=== PATIENT | male | born 1935 | race Caucasian/White ===

== ENCOUNTER 2022-12-19 10:30 | Outpatient (RCR) | payer MEDICARE, SELFPAY | END 2023-04-18 23:59 | disposition home or self-care (01) | PROVIDERS: PCP Family Medicine; Visit Provider Physician Assistant Medical | DX: H81.11 Benign paroxysmal vertigo, right ear (principal); R26.81 Unsteadiness on feet; Z51.89 Encounter for other specified aftercare | CPT/HCPCS: 95992; 97162; 97535 ==

== ENCOUNTER 2023-09-11 06:17 | Day surgery (SDC) | payer MEDICARE, SELFPAY ==
[2023-09-11] VITALS (27 sets, daily range): BP systolic 92–146; BP diastolic 57–87; PULSE 39–67; RESP 12–20; TEMP 35.7–36.7; O2SAT 88–99; BMI 32.1
--- OUTSIDE RECORDS SUMMARY | 2023-09-11 06:19 | XMS_ITS | Continuity of Care Document ---
Author Name Unknown Organization [facility] Address [address] [address] [place] [address] Phone Care Team Providers Care Order Planner Name Role Phone Shaheen VÁSQUEZ, Anshu Unavailable Unavailable Allergies, Adverse Reactions, Alerts Substance Reaction Status Criticality monosodium glutamate Swelling Active No Info rmation lisinopril Cough Active No Information chlorthalidone Hypokalemia Active No Informatio n amlodipine Edema Active No Information Medications Medication Instructions Dosage Effective Dates (start - stop) Status Comments Jardiance 25 mg tablet take 1 tablet by oral route every day in the morning 25 MG - Active colestipol 1 gram tablet take 2 tablet by oral route every bedtime swallowing whole with any liquid. Do not crush, chew and/or divide. 2 G - Active acetaminophen 500 mg capsule take 2 - 4 capsule by ORAL route every 6 days as needed 1000 MG - Active atorvastatin 20 mg tablet take 1 tablet by oral route every day 20 MG - Active carvedilol 6.25 mg tablet take 1 tablet by ORAL route 2 times every day with food 6.25 MG - Active clopidogrel 75 mg tablet take 1 Tablet by Oral route every day 1 Tablet - Active losartan 50 mg tablet take 1 tablet by oral route every day 50 MG - Active metformin 500 mg tablet take 1 tablet by oral route every day with morning and evening meals 500 MG - Active Accu-Chek Judie Plus test strips - Active Nitromist 400 mcg/spray translingual aerosol place 1 spray by translingual route onto or under the tongue at the first sign of an attack; no more than3 sprays are recommended within a 15 minute period. 0.4 MG - Active omeprazole 20 mg capsule,delayed release take 1 capsule by ORAL route every day before a meal 20 MG - Active triamcinolone acetonide 0.1 % topical cream apply by topical route every day PRN for Hives Not Available - Active triamterene 37.5 mg-hydrochlorothiazi de 25 mg capsule take 1 capsule by oral route every day 1.00 capsule - Active Vitamin D3 25 mcg (1,000 unit) chewable tablet take 1 by Oral route every day 1 - Active Procedures Procedure Date Offic/outpt E&m Estab Mod-hi 2 22 Offic/outpt E&m Estab Low-mod 1 ERCP w/FB or stent removal Ercp; W/sphincterotomy/papillo 20 Ercp; W/endo Retro Remov Stone 20 Subsqt Hosp-da E&m Stable 15 M 20 ERCP w/stent & sphinc ERCP w/stent & sphinc Subsqt Hosp-da E&m Minr Compl 0 Init Hosp-da E&m Mod Severity 0 Init Hosp-da E&m Mod Severity 0 Ugi Endo; W/bx 1/mx Advance Directives Directive Yes / No Effective Date File Name No Information Encounters Encounter Description Practice Location Reason(s) For Visit Diagnoses Date Provider Providers Copied on Encounter Offic/outpt E&m Estab Mod-hi 2 [facility], [address] [address], [place], [id number], [place] tel:[phone] [facility] GI Symptoms or Concerns (chief complaint) NauseaConstipa tion, unspecified constipation typeDietary counseling and surveillanceEs sential (primary) hypertension 2 Shaheen Brasher. [address], [place], [place], [id number], [place]. tel:[phone] Referring Provider: Referral Self, USE FOR SELF REFERRALS. [facility], [address] [address], [facility] [place], [id number], [place] tel:[phone] [facility] No Information 2 [place]. [address] [place] [id number], [place]. tel:[phone] [facility], [address] [address], [place], [place], [id number], [place] tel:[phone] [facility] No Information 1 Shaheen Brasher. [address] [place] [address], [id number], [place]. tel:[phone] Referring Provider: Referral Self, USE FOR SELF REFERRALS. Offic/outpt E&m Estab Low-mod [facility], [address] [address], [place], [place], [id number], [place] tel:[phone] [facility] GI Symptoms or Concerns (chief complaint) Diarrhea, unspecified type 1 Shaheen Brasher. [address] [place] [address], [id number], [place]. tel:[phone] Referring Provider: Gerald Gonzalez, [address] [place] [address], [place], [address]. tel:[phone] [facility], [address] [address], [place], [place], [id number], [place] tel:[phone] [facility] No Information 1 Alexa Wilson. [address] [place] [address], [id number], [place]. tel:[phone] [facility], [address] [address], [place], [place], [id number], [place] tel:[phone] [facility] No Information 0 Irasema Alcocer. [address] [place] [address], [id number], [place]. tel:[phone] Referring Provider: Gerald Gonzalez, [address], [place], [address]. tel:[phone] [facility], [address] [address], [place], [id number], [place] tel:[phone] [facility] Calculus of bile duct without cholecystitis with obstruction 0 Timmy Arce. [address], [id number], [place]. tel:[phone] Subsqt Hosp-da E&m Stable 15 M [facility], [address] [address], [place], [id number], [place] tel:[phone] [facility] No Information 0 Andrea REA Lauren. [address] [place] [address], [id number], [place]. tel:[phone] Referring Provider: Gerald Gonzalez, [address], [place], [address]. tel:[phone] [facility], [address] [address], [place], [id number], [place] tel:[phone] [facility] No Information 0 Timmy Arce. [address] [place] [address], [id number], [place]. tel:[phone] Referring Provider: Gerald Gonzalez, [address], [place], [address]. tel:[phone] [facility], [address] [address], [place], [id number], [place] tel:[phone] [facility] No Information 0 Timmy Arce. [address] [place] [address], [id number], [place]. tel:[phone] Subsqt Hosp-da E&m Minr Compl [facility], [address] [address], [place], [id number], tel:[phone] [facility] No Information 0 Cedrick Parrish. [address] [place] [address], [id number], . tel:[phone] Referring Provider: Gerald Gonzalez, [address], [place], [address]. tel:[phone] In Hosp-da E&m Mod Severity [facility], [address] [address], [place], [place], [id number], tel:[phone] [facility] No Information 0 Irasema Alcocer. [address] [place] [address], [id number], [place]. tel:[phone] Referring Provider: Gerald Gonzalez, [address], [place], [address]. tel:[phone] In Hosp-da E&m Mod Severity [facility], [address] [address], [place], [place], [id number], tel:[phone] [facility] No Information 0 Milind Nielson. [address] [place] [address], [id number], . tel:[phone] Referring Provider: Gerald Gonzalez, [address], [place], [address]. tel:[phone] Family History Family Member Type Diagnosis Age At Onset Father Problem (finding) congestive heart failur e Problem (finding) Family history of cancer of colon (Cause Of ) Brother Problem (finding) cancer of the esophagus (Cause Of ) Problem (finding) Family history of cancer of colon (Cause Of ) Immunizations Vaccine Date Status Comments tetanus toxoid, reduced diphtheria toxoid, and acellular pertussis vaccine, adsorbed administered Note: [facility] b i-directional interface ; Source: Other Registry SARS-COV-2 (COVID-19) vaccin e, mRNA, spike protein, LNP, preservative free, 30 mcg/0.3mL dose, mohan-sucrose formulation administered Note: MII C bi- directional interface ; Source: Other Registry influenza, seasonal vaccine, quadrivalent, adjuvanted, .5mL dose, preservative free administered Note: [facility] bi-di rectional interface ; Source: Other Registry SARS-COV-2 (COVID-19) vaccin e, mRNA, spike protein, LNP, preservative free, 30 mcg/0.3mL dose administered Note: [facility] bi-direct ional interface ; Source: Other Registry SARS-COV-2 (COVID-19) vaccin e, mRNA, spike protein, LNP, preservative free, 30 mcg/0.3mL dose administered Note: [facility] bi-direct ional interface ; Source: Other Registry SARS-COV-2 (COVID-19) vaccin e, mRNA, spike protein, LNP, preservative free, 30 mcg/0.3mL dose administered Note: [facility] bi-direct ional interface ; Source: Other Registry influenza, seasonal vaccine, quadrivalent, adjuvanted, .5mL dose, preservative free administered Note: [facility] bi-di rectional interface ; Source: Other Registry Seasonal trivalent influenza vaccine, adjuvanted, preservative free administered Note: [facility] bi-direct ional interface ; Source: Other Registry Seasonal trivalent influenza vaccine, adjuvanted, preservative free administered Note: [facility] bi-direct ional interface ; Source: Other Registry zoster vaccine recombinant administered N ote: [facility] bi-directional interface ; Source: Other Registry zoster vaccine recombinant administered N ote: [facility] bi-directional interface ; Source: Other Registry zoster vaccine recombinant administered N ote: [facility] bi-directional interface ; Source: Other Registry Seasonal trivalent influenza vaccine, adjuvanted, preservative free administered Note: [facility] bi-direct ional interface ; Source: Other Registry influenza, high dose seasona l, preservative-free administered Note: [facility] bi-direct ional interface ; Source: Other Registry influenza, high dose seasona l, preservative-free administered Note: [facility] bi-direct ional interface ; Source: Other Registry Prevnar 13 administered Note: [facility] bi-d irectional interface ; Source: Other Registry influenza, high dose seasona l, preservative-free administered Note: [facility] bi-direct ional interface ; Source: Other Registry tetanus toxoid, reduced diphtheria toxoid, and acellular pertussis vaccine, adsorbed administered Note: [facility] b i-directional interface ; Source: Other Registry Influenza, seasonal, injectable administe red Note: [facility] bi- directional interface ; Source: Other Registry Novel [id number], all formulations administered Note: [facility] bi-direct ional interface ; Source: Other Registry Influenza, seasonal, injectable administe red Note: [facility] bi- directional interface ; Source: Other Registry Influenza, seasonal, injectable administe red Note: [facility] bi- directional interface ; Source: Other Registry Influenza, seasonal, injectable administe red Note: [facility] bi- directional interface ; Source: Other Registry Influenza, seasonal, injectable administe red Note: [facility] bi- directional interface ; Source: Other Registry Influenza, seasonal, injectable administe red Note: [facility] bi- directional interface ; Source: Other Registry Pneumovax 23 administered Note: [facility] bi-d irectional interface ; Source: Other Registry tetanus and diphtheria toxoi ds, adsorbed, preservative free, for adult use (2 Lf of tetanus toxoid and 2 Lf of diphtheria toxoid) administered Note: [facility] bi-direct ional interface ; Source: Other Registry Payers Payer name Insurance type Covered constitution party ID Authorcatherinea tiemilie(s) Medicare [facility] [id number] [facility] [id number] Social History Type Description Quantity Date Captured Comments Alcohol Use Details Caffeine Use Details Unknown Tobacco Use Status Current non-smoker Smoking Status undefined Non-Smoking Tobacco Use Details : No Details Available : No Details Available Sex Male Vital Signs Date / Time: Height Weight BMI Pulse Rate Blood Pressure Temperature Respiratory Rate Body Surface Area Head Circumference Head Circ. Percentile Wt./[place]. Percentile BMI percentile Pulse Ox Inhaled Ox 10:44 AM 70.00 in 95.254 kg (210.00 lbs) 30.1 3 kg/m eter (2) 10:53 AM 70.00 in 97.159 kg (214.20 lbs) 30.7 3 kg/m eter (2) 63 /min 142/87 mm[Hg] Chief Complaint And Reason For Visit From encounter dated '10/19/2021 11:00'. GI Symptoms or Concerns (chief complaint). Description: Mr. Deras is an 85-year-old gentleman with history of myocardial infarction, type 2 diabetes, cholecystectomy (June 2019), common bile duct stone with cholangitis (February 2020), prostatic hypertrophy, and bile acid related diarrhea who isseen in followup to discuss new symptoms of nausea.Mr. Deras had been seen approximately 9 monthsago in the office and was complaining of diarrheal stools. It was ultimately felt that he likely had bile acid related diarrhea following his cholecystectomy and he was started on colestipol. After starting colestipol, he had a significant improvement in his symptoms and his bowel habits returned to baseline/normal.Unfortunately, over the past few months, he started to have troubles with some nausea and subsequently noted constipation (infrequent stools, every 2 to 3 days). With the nausea, initially, he was switched from metformin to Jardiance, but despite this switch his nausea only improved moderately, but not completely. The constipation has persisted.Colonoscopy (approximately 2015) performed by Dr. Nicho Martinez in [place], [place], reportedly a normal exam, although I do not have these records available today.Upper endoscopy (June 2019) normal including gastric and duodenal b iopsies. Reason For Referral Reason For Referral No Information Plan Of Treatment Date Type Action Status Goal Lifestyle education regardin g diet completed Referral Ordered: ERCP Appointment date/timeframe: 03/16/2020 ordered History Of Present Illness Encounter Date Complaint History Of Prese nt Illness Chetan-22-2022 GI Symptoms or Concerns Mr. Jeff hardy is an 85-year-old gentleman with history of myocardial infarction, type 2 diabetes, cholecystectomy (June 2019), common bile duct stone with cholangitis (February 2020), prostatic hypertrophy, and bile acid related diarrhea who is seen in followup to discuss new symptoms of nausea.Mr. Deras had been seen approximately 9 months ago in the office and was complaining of diarrheal stools. It was ultimately felt that he likely had bile acid related diarrhea following his cholecystectomy and he was started on colestipol. After starting colestipol, he had a significant improvement in his symptoms and his bowel habits returned to baseline/normal.Unfortunately, over the past few months, he started to have troubles with some nausea and subsequently noted constipation (infrequent stools, every 2 to 3 days). With the nausea, initially, he was switched from metformin to Jardiance, but despite this switch his nausea only improved moderately, but not completely. The c GI Symptoms or Concerns Mr. Jeff hardy is an 85-year-old gentleman with a history of coronary artery disease/myocardial infarction, type 2 diabetes, cholecystectomy (June 2019), common bile duct stone with cholangitis (February 2020), and prostatic hypertrophy, who was seen in consultation at the request of Dr. Gerald Ng for symptoms of diarrhea.Mr. Deras describes roughly about 1 year of diarrhea symptoms characterized by urgent, poorly formed and frequent stools typically in the morning when he first awakens. The stools can start out somewhat formed, but then progressively become more watery. Typically after the morning, his bowel habits are manageable or absent for the rest of the day. He has had urgency to the point where he has had near incontinence. He denies any blood in the stool. He has had no unexplained weight loss.There is no significant abdominal pain. He has no fevers or chills. Again, no bleeding or unexplained weight loss.He did undergo cholecystectomy in June 2019 Functional Status Date Functional Assessmen t No Information Instructions Date Instruction Additional Infor ravinder 1.) Constipation cou ld easily cause the nausea symptoms.2.) I'd agree with decreasing the Colestipol dose as we discussed.3.) If Colestipol is discontinue entirely and constipation persists then we may consider starting a low dose of Miralax daily. Related to Constipation, unspecified constipation type Lifestyle education regarding di et Related to Dietary counseling and surveillance 1.) Suspected bile a lashell diarrhea. I would recommend a trial of Colestipol 2 tablets every evening at bedtime.2.) You can continue to use Immodium (loperamide) as needed.3.) If symptoms are not improving then consider further testing, likely colonoscopy with biopsies to exclude microscopic colitis Related to Diarrhea, unspecified type Assessments Type Assessment Date assessment Nausea assessment Constipation, unspecified consti pation type assessment Dietary counseling and surveilla nce assessment Essential (primary) hypertension impression Constipation. Mr. Wolf barahona has new onset constipation in the setting of recently starting colestipol. He previously had diarrhea. I would suggest he try decreasing the dose as tolerated as this is likely constipation from colestipol. Additionally, this constipation issue may be responsible for his nausea symptoms.If he continues to have constipation despite discontinuation of colestipol, then we might try a low dose of an osmotic laxative such as MiraLax.If the nausea persist despite improvement in constipation, then we may look at the upper GI tract imaging such as an upper GI x-ray series or possibly gastric emptying scan. Upper endoscopy as mentioned above was performed only 2 years ago and was unrevealing and he has been maintained on omeprazole, which would make recurrent ulcers or reflux esophagitis less likely. Patient Care Teams Name Effective Dates (start - stop) Status Members No Information
--- OUTSIDE RECORDS SUMMARY | 2023-09-11 06:20 | XMS_ITS | Data Portability ---
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 Name Role Phone SHARATH GRIFFIN Primary Care Provider Assessment Encounter Date Assessment Date Assessment LastModified by Organization Details LastModified Time 01/25/2022 01/25/2022 86 yoM with elevated PSA, family history of improvement director, and BPH f/u GL PVP Not available 01/25/2022 10:30:57 07/13/2022 07/13/2022 86 yoM with elevated PSA, family history of improvement director, and BPH f/u GL PVP Of note a total of 15 minutes was spent: preparing to see the patient by reviewing records, images, and laboratory data; obtaining/revie wing separately obtained history; performing physical examination, counseling and educating patient/family/ caregiver; ordering appropriate medications, labs, imaging or procedures; documenting the clinical encounter; and coordination of care. Not available 07/13/2022 17:05:54 01/03/2023 01/03/2023 87 yoM with elevated PSA, family history of improvement director, and BPH f/u GL PVP Not available 01/03/2023 13:55:27 04/20/2023 04/20/2023 87 yoM with elevated PSA, family history of improvement director, and BPH f/u GL PVP [email or web address] Not available 04/18/2023 22:32:31 05/09/2023 05/09/2023 87 yoM with elevated PSA, family history of improvement director, and BPH f/u GL PVP Of note a total of 20 minutes was spent: preparing to see the patient by reviewing records, images, and laboratory data; obtaining/revie wing separately obtained history; performing physical examination, counseling and educating patient/family/ caregiver; ordering appropriate medications, labs, imaging or procedures; documenting the clinical encounter; and coordination of care. Not available 05/09/2023 22:20:50 Plan of Treatment Reminders Order Date Submit Date Provider Last Modified By Organization Details Last Modified Time Details Appointments LAB BLOOD DRAW 2023 11:10A M [facility] Not available Not available Not available ESTABLI SHED 10 2023 11:30A M Marco Cat MD Not available Not available Not available Lab PSA, serum or plasma 2022 023 [facility], [address], [place], [address], 01/03/2023 14:54:54 PSA, total, serum or plasma 2022 023 [facility], [address] [place], [address], 01/10/2023 12:16:22 PSA, serum or plasma 2022 023 [facility], [address] [place], [address], 01/18/2023 11:47:42 PSA, serum or plasma 2021 022 [facility], [address], [place], [address], 01/25/2022 14:03:06 PSA, total, serum or plasma 2021 023 [facility], [address] [place], [address], 07/06/2022 08:57:23 Referral None recorde d. Procedures None recorde d. Surgeries None recorde d. Imaging None recorde d. Medication Orders ceftria xone 1 gram solutio n for injecti on [facility] [address] [place], [address], 05/09/2023 13:10:48 Cipro 500 mg tablet 2022 023 [facility] [address] [place], [address], 05/09/2023 13:11:25 Patient TargetsNo targets recorded. 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 We discussed how patient's clinicopathologic characteristics including his prostate specific antigen level, digital rectal exam findings and biopsy grade place him in the low risk category according to NCCN criteria (PSA <10 ng/mL or Otilio score of 6 or clinical stage T2a or less). I discouraged patient from considering primary androgen deprivation therapy since it is not curative and is associated with multiple side effects, such as hot flashes, osteoporosis, decreased libido, erectile dysfunction, and a potentially higher risk of diabetes and heart disease. For men with low-risk clinically localized prostate cancer, brachytherapy, external beam radiation therapy, and radical prostatectomy all provide an extremely high degree of freedom from local or distant recurrence with prolonged follow-up. We discussed the rationale of radical prostatectomy performed via either a robotic or open technique. The concepts of the surgery are removal of the pelvic lymph nodes and prostate, with nerve-sparing as deemed appropriate. These have both diagnostic and therapeutic intent. When performed robotically, the operation is carried out through six small incisions and a 2.5-4 hour surgery associated with minimal blood loss, an overnight hospital stay, and 7-14 days of Sams catheterization. Major risk of the surgery are rare but do include bleeding, infection, adjacent organ injury, lymphocele, positive margins, severe pain and standard operative risks such as myocardial infarction, stroke, DVT, pneumonia, PE and even a 0.2% chance of . We discussed urinary incontinence following surgery. Approximately 10-20% of men will have nearly complete control of their urination when the catheter is removed, the median time to recovery is approximately 3-4 months but can take up to 12-18 months. Based on currently available data, approximately 96% of men will have excellent control of urination at one year following surgery. In regards to sexual function, I explained the median time to recovery of functional erections is 6-8 months but can take up to 18 months. At 18 months following surgery, approximately 75% of men with quality erections prior to surgery who undergo aggressive bilateral nerve-sparing will have functional erections with or without medical therapy. Following surgery, the PSA is expected to remain undetectable, but if it does rise there is a possibility of salvage curative radiation therapy, if deemed appropriate. We also discussed the rationale of radiation therapy, which can be delivered via brachytherapy, external beam radiation therapy, or proton beam therapy. There is an excellent track success but can be associated with potential side effects which include urinary urgency, frequency, urethral stricture as well as the potential for erectile dysfunction and rectal irritation or frequency of bowel movements. I explained there is an approximately 2% chance of serious bladder or rectal toxicity as well as a very low risk of inducing a secondary malignancy. The potential downside of radiation is complete pathologic review and lack of reliable salvage curative options. Patient was encouraged to seek a second opinion with a Radiation Oncologist, as a means of better educating him on his available treatment options. Active surveillance was described as a reasonable management strategy which has been associated with excellent short and intermediate term cancer control. The concept is to closely follow the cancer and intervene as needed at any meaningful sign of increased tumor volume or increased grade. Several studies have suggested delayed treatment has been associated with similar oncologic to immediate treatment. Approximately 5% of patients per year require an intervention and discontinue active surveillance. I explained there is consistent data showing a 98% cancer-specific survival at 10 years following the diagnosis but data beyond 10 years is not currently available. Patient understands the rationale of re-biopsy of his prostate if he is interested in this approach since approximately 20-30% of patients will have higher grade or higher volume disease which exclude them from considering active surveillance. The obvious disadvantage of active surveillance where selective delayed therapy is relied upon is that the window of opportunity for cure may be missed. Individual risk of disease progression is difficult to assign, so of concern is a small but real possibility of progression to in patients selecting active surveillance because of the loss of opportunity for cure during the surveillance period. Prostate cancer has an exceptionally long natural history, characterized typically by initiation in the 30s, clinical diagnosis in the 50-60s, and from disease in the 80s. This represents a 50-year time course. Thus, most believe that a treatment delay of 1 or 2 years in patients who are reclassified as higher risk and then treated is unlikely to significantly alter cancer mortality. Additionally, a small attrition rate can be expected because of men who are unable or unwilling to tolerate surveillance. This must be accepted from the outset for any individual. Lastly, while active surveillance represents a feasible strategy for carefully selected patients and is endorsed by the National Comprehensive Cancer Network (NCCN) as a first line treatment option in the management of low-risk prostate adenocarcinoma, the generalizability across patients with established risk factors such as ethnicity and positive family history remains unknown at this time. Patient was also encouraged to seek a second opinion both with an outside Urologist as well as radiation oncologist to better assist him in his decision making. Patient appears to be very well informed about his cancer as well as the options. I explained to him that there is no suarez in making a decision, and the most important thing is that he feels comfortable and educated regarding his options and ultimate treatment choice. Patient would like to proceed with active surveillance. Not available 05/09/2023 22:20:28 Reason for Referral None Reported. Results Created Date Observation Date Name Description Value Unit Range Abnormal Flag LastModifiedBy Organization Detail LastModifiedTime 01/26/2001/25/2022 PSA, serum or plasm a PSA 8.5 0-4.0 Not Available [facility] [address], [place], [address], 01/25/2022 10:54:39 01/04/20 23 01/03/2023 PSA, serum or plasm a PSA 10.7 ng/ml 0-4.0 Not Available [facility] [address], [place], [address], 01/03/2023 14:41:21 03/31/20 20 03/11/2020 imagi ng/di agnos tic resul t No observ ation record ed. Not Available 01/25/2022 14:00:06 05/05/19 21 04/21/2020 MRI, prost ate, w/wo contr ast No observ ation record ed. Not Available 01/25/2022 14:00:06 01/25/20 23 01/23/2023 MRI, prost ate, w/wo contr ast No observ ation record ed. [facility] Yojana [address] [facility] , [place], [address], 01/25/2023 15:14:14 Result Notes None recorded. Problems Name Status Onset Date Resolution Date Notes Provider Name and Address Organization Details Recorded Time Slowing of urinary stream Active 03/06/20 12 788.62 : SLOW STREAM Not Available [facility] 10/16/2019 01:56:26 Prostate specific antigen above reference range Active 03/06/20 12 790.93 : ELEVATED PSA Not Available [facility] 10/16/2019 01:56:26 Blood in urine Active 03/06/20 12 599.70 : HEMATURIA-U NSPECIFIED Not Available [facility] 10/16/2019 01:56:26 Family history of cancer Active 03/06/20 12 V16.8 : FAMILY HX OTHER SPEC MALIGNANT NEOPLASM - Notes:FATHE R AND 2 BROTHERS-DE AN AND JOANNE Not Available [facility] 10/16/2019 01:56:26 Problem Notes None recorded. Procedures Surgical History Date Name Laterality Status Provider Name and Address Organization Details Recorded Time 3 Prostate Biopsy Procedure completed Johnathan Courtney MD [address] [facility],[address], [place], [address], [facility] 04/20/2023 14:55:38 3 Rocephin/Ceftr iaxone completed Elizabeth gil, [facility] 04/20/2023 14:24:46 3 ROOFER VINYL COATING/blood draw completed Svetlana gil, [facility] 01/03/2023 14:41:15 2 Blood Draw/ROOFER VINYL COATING/PSA RESULTS completed Lolis gil [facility] 01/25/2022 10:55:09 Imaging Results Imaging Date Name Status LastModified by Organiz ation Details LastModified Time 03/11/2020 imaging/diagn ostic result completed [facility] Information not available 01/25/2022 14:00:06 04/21/2020 MRI, prostate, w/wo contrast completed [facility] Information not available 01/25/2022 14:00:06 01/23/2023 MRI, prostate, w/wo contrast completed [facility] [address] [facility] [address], [place], [address], 01/25/2023 15:14:14 Procedure Notes None recorded. Medical Equipment None Reported. Allergies Allergen ID Allergen Name Allergen Category Reaction Reaction Severity Criticality Documentation Date Start Date Code Code System Note Provider Name and Address Organization Details Recorded Time 554196 aspirin medicatio n Not available Not available Not available 10/16/20192011 1191 RxNorm Elizabeth Kit gil [facility] 3 14:00:05 Medications Name Sig Start Date Stop Date Status Note LastModified by Organization Details LastModified Time losartan 50 mg tablet TAKE ONE TABLET BY MOUTH BY MOUTH EVERY DAY active Not Available Not Available No t Available carvedilol 6.25 mg tablet TAKE 1 TABLET (6.25 MG) BY MOUTH TWO TIMES DAILY WITH MEALS. active Not Available Not Available No t Available atorvastati n 20 mg tablet TAKE 1 TABLET (20 MG) BY MOUTH ONCE DAILY. active Not Available Not Available No t Available glipizide ER 10 mg tablet, extended release 24 hr TAKE 1 TABLET (10 MG) BY MOUTH ONCE DAILY BEFORE A MEAL. active Not Available Not Available No t Available Accu-Chek Softclix Lancets TEST ONCE DAILY. active Not Available Not Available No t Available clopidogrel 75 mg tablet TAKE 1 TABLET (75 MG) BY MOUTH ONCE DAILY. active Not Available Not Available No t Available ciprofloxac in 500 mg tablet TAKE ONE TABLET BY MOUTH EVERY 12 HOURS 05/09 completed Not Available Not Available Not Available triamcinolo ne acetonide 0.1 % topical cream APPLY TO AFFECTED AREA(S) TWICE A DAY NOT TO EXCEED 14 DAYS PER EPISODE active Not Available Not Available No t Available ceftriaxone 1 gram solution for injection Take 1 g by injection route. 05/09 completed Not Available Not Available Not Available benzonatate 100 mg capsule TAKE 1 CAPSULE (100 MG) BY MOUTH 3 TIMES DAILY IF NEEDED FOR COUGH. 05/09 completed Not Available Not Available Not Available glipizide ER 2.5 mg tablet, extended release 24 hr TAKE 3 TABLETS (7.5MG) BY MOUTH ONCE DAILY BEFORE A MEAL active Not Available Not Available No t Available losartan 25 mg tablet TAKE 1 TABLET (25 MG) BY MOUTH ONCE DAILY. 07/13 completed Not Available Not Available Not Available nitroglycer in 0.[address] 1 TABLET (0.4 MG) UNDER THE TONGUE EVERY 5 MINUTES IF NEEDED FOR CHEST PAIN. active Not Available Not Available No t Available triamterene 37.5 mg-hydrochl orothiazide 25 mg tablet TAKE 1 CAPSULE BY MOUTH EVERY MORNING. active Not Available Not Available No t Available omeprazole 20 mg capsule,del ayed release TAKE 1 TABLET (20 MG) BY MOUTH TWO TIMES DAILY. active Not Available Not Available No t Available cefuroxime axetil 500 mg tablet TAKE 1 TABLET (500 MG) BY MOUTH TWO TIMES DAILY FOR 12 DAYS. 04/20 completed Not Available Not Available Not Available ondansetron 4 [address] disintegrat ing tablet PLACE 1 TABLET (4 MG) ON THE TONGUE EVERY 8 HOURS IF NEEDED FOR NAUSEA/VO MITING. active Not Available Not Available No t Available metformin ER 500 mg tablet,exte nded release 24 hr TAKE 3 TABLETS (1,500 MG) BY MOUTH ONCE DAILY WITH EVENING MEAL. 07/13 completed Not Available Not Available Not Available colestipol 1 gram tablet TAKE 1 TABLET (1 G) BY MOUTH ONCE DAILY. active Not Available Not Available No t Available Accu-Chek Judie Plus test strips TEST ONCE DAILY. active Not Available Not Available No t Available TRUEplus Lancets 33 gauge TEST ONCE DAILY. active Not Available Not Available No t Available Jardiance 10 mg tablet TAKE 1 TABLET (10 MG) BY MOUTH ONCE DAILY. 07/13 completed Not Available Not Available Not Available Jardiance 25 mg tablet TAKE 1 TABLET (25 MG) BY MOUTH ONCE DAILY. active Not Available Not Available No t Available Flowflex COVID-19 Antigen Home Test kit use as directed 01/03 completed Not Available Not Available Not Available Paxlovid 300 mg (150 mg x 2)-100 mg tablets in a dose pack TAKE 1 NIRMATREL VIR 150 MG PINK-OVAL TABLET AND 1 RITONAVIR 100 MG WHITE-OVA L TABLET TOGETHER TWICE DAILY FOR 5 DAYS. 01/03 completed Not Available Not Available Not Available Vitals Date Recorded Body weight Body mass index (BMI) Body height Provider Name and Address Organization Details Last Updated DateTime 01/25/2022 54031.32 g 31.6 kg/m2 177.8 cm Marco Cat MD [address] [facility],[address], [address], [facility] 01/25/2022 10:45:01 Date Recorded Body height Body mass index (BMI) Body weight Provider Name and Address Organization Details Last Updated DateTime 07/13/2022 177.8 cm 31.6 kg/m2 38473.32 g Lolis Patel [facility] 07/13/2022 14:25:31 Date Recorded Body height Body mass index (BMI) Body weight Provider Name and Address Organization Details Last Updated DateTime 01/03/2023 177.8 cm 31.6 kg/m2 41736.32 g Svetlana Villagomez [facility] 01/03/2023 14:39:12 Date Recorded Body height Body mass index (BMI) Body weight Provider Name and Address Organization Details Last Updated DateTime 04/20/2023 177.8 cm 31.6 kg/m2 44031.32 g Elizabeth Pantoja [facility] 04/20/2023 13:59:58 Date Recorded Body height Body mass index (BMI) Body weight Provider Name and Address Organization Details Last Updated DateTime 05/09/2023 177.8 cm 31.6 kg/m2 12191.32 g Lolis Patel [facility] 05/09/2023 13:11:12 Social History Question Answer Notes LastModified by Organizat ion Details LastModified Time Tobacco Smoking Status Never Smoker Marco Cat MD [address] [facility],[address], [address], [facility] 01/25/2022 10:45:28 What Is Your Level Of Alcohol Consumption? Occasional Information not available 01/03/2023 What Is Your Level Of Caffeine Consumption? None Information not available 01/03/2023 What Was The Date Of Your Most Recent Tobacco Screening? 05/09/2023 [email or web address] Information not available 05/09/2023 Sex: Male Functional Status None recorded. Mental Status None recorded. Family History Relationship Description Onset Age of this Age Resolved Age Notes Brother Family history of pr ostate cancer Medical History No medical history recorded. Immunizations Vaccine Type Date Status Provider Name and Address Organization Details Recorded Time COVID-19, mRNA, LNP-S, bivalent, PF, 30 mcg/0.3 mL dose 08[facility]24/2022 [facility] 13:11:17 influenza, trivalent, adjuvanted 02/21/2017 [facility]/2023 14:39:19 influenza, trivalent, adjuvanted 02/25/2018 [facility]/2023 14:39:19 influenza, trivalent, adjuvanted 03/07/2019 [facility] 01/[facility]/2023 14:39:19 zoster recombinant 07/30/2017 [facility]/2023 14:39:19 zoster recombinant 08/02/2017 [facility]23 14:39:19 zoster recombinant 11/13/2017 [facility]23 14:39:19 influenza, high-dose, quadrivalent 02/01/2022 [facility] 14:39:19 Influenza vaccine, quadrivalent, adjuvanted 01/27/2020 [facility] 14:39:19 Influenza vaccine, quadrivalent, adjuvanted 01/26/2021 [facility] 14:39:19 COVID-19, mRNA, LNP-S, PF, 30 mcg/0.3 mL dose 06/12/2020 completed Svetlana Calderonauer null, [facility] 01/03/2023 14:39:19 COVID-19, mRNA, LNP-S, PF, 30 mcg/0.3 mL dose 07/03/2020 [facility]23 14:39:19 COVID-19, mRNA, LNP-S, PF, 30 mcg/0.3 mL dose 01/22/2021 completed Svetlana Calderonauer null, [facility] 01/03/2023 14:39:19 Pneumococcal conjugate PCV20, polysaccharide [id number] conjugate, adjuvant, PF 07/06/2022 completed Svetlana Calderonauer null, [facility] 01/03/2023 14:39:19 COVID-19, mRNA, LNP-S, PF, 30 mcg/0.3 mL dose, mohan-sucrose 07/29/2021 completed Svetlana Calderonauer null, [facility] 01/03/2023 14:39:19 COVID-19, mRNA, LNP-S, bivalent, PF, 30 mcg/0.3 mL dose 01/16/2022 [facility]23 14:39:19 pneumococcal polysaccharide PPV23 08/05/2002 [facility]/2023 14:39:19 Tdap 08/30/2021 completed Svetlana Calderonauer null, [facility] 01/03/2023 14:39:19 Tdap 02/01/2012 completed Svetlana Calderonauer null, [facility] 01/03/2023 14:39:19 Novel [id number], all formulations 04/16/2009 completed Svetlana Calderonauer null, [facility] 01/03/2023 14:39:19 Pneumococcal conjugate PCV 13 02/12/2014 [facility]23 14:39:19 Influenza, high dose seasonal 01/14/2016 completed Svetlana Calderonauer null, [facility] 01/03/2023 14:39:19 Influenza, high dose seasonal 02/12/2014 [facility]2023 14:39:19 Influenza, high dose seasonal 03/17/2015 [facility]2023 14:39:19 Influenza, seasonal, injectable 01/19/2009 [facility]2023 14:39:19 Influenza, seasonal, injectable 01/21/2010 completed Svetlana Warddave [facility] 01/03/2023 14:39:19 Influenza, seasonal, injectable 02/01/2012 [facility]23 14:39:19 Influenza, seasonal, injectable 02/04/2013 completed Svetlana Warddave [facility] 01/03/2023 14:39:19 Influenza, seasonal, injectable 02/22/2007 [facility]/2023 14:39:19 Influenza, seasonal, injectable 03/14/2006 [facility]/2023 14:39:19 Influenza, seasonal, injectable 04/09/2008 [facility]/2023 14:39:19 Influenza, seasonal, injectable 04/12/2005 completed Svetlana Warddave [facility] 01/03/2023 14:39:19 Td (adult), 2 Lf tetanus toxoid, preservative free, adsorbed 08/05/2002 completed Svetlana Warddave [facility] 01/03/2023 14:39:19 Past Encounters Encounter ID Performer Location Encounter Start Date Encounter Closed Date Diagnosis/Indication Diagnosis SNOMED-CT Code [id number] Marco Cat MD [facility] [address] [place] [address] 01/25/2022 10:22:18 01/27/2022 12:38:09 Prostate specific antigen above reference range [id number] Family his tory of prostate cancer [id number] Lower urin krystel tract symptoms due to benign prostatic hypertrophy [id number] Marco Cat MD [facility] [address] [place] [address] 07/13/2022 14:23:17 07/14/2022 16:05:40 Prostate specific antigen above reference range [id number] Family his tory of prostate cancer [id number] Lower urin krystle tract symptoms due to benign prostatic hypertrophy [id number] [facility] [address] [place] [address] 01/03/2023 14:28:35 01/08/2023 15:50:11 Prostate specific antigen above reference range [id number] Family his tory of prostate cancer [id number] Lower urin krystle tract symptoms due to benign prostatic hypertrophy [id number] Johnathan Courtney MD _[facility] [address] [place] [address] 04/20/2023 12:33:49 05/04/2023 10:48:46 Prostate specific antigen above reference range [id number] Family his tory of prostate cancer [id number] Lower urin krystle tract symptoms due to benign prostatic hypertrophy [id number] [facility] [address] [place] [address] 05/09/2023 13:09:43 05/16/2023 13:19:08 Prostate specific antigen above reference range [id number] Family his tory of prostate cancer [id number] Lower urin krystle tract symptoms due to benign prostatic hypertrophy [id number] Malignant tumor of prostate [id number] Health Concerns Section Related Observation LastModified by Organization Detai ls LastModified Time None Recorded Concern Status LastModified by Organization Details LastModified Time None Recorded Advance Directives Directive None Recorded Payers Encounter Date Sequence Insurance Name Policy Number Policy Modi Covered Member ID Modi Member ID Guarantor Name 05/09/2023 1 [facility] (MEDICARE REPLACEMENT/A DVANTAGE - PPO) Chaitanya Deras [id number] Chaitanya Deras 04/20/2023 1 [facility] (MEDICARE REPLACEMENT/A DVANTAGE - PPO) Chaitanya Deras [id number] Chaitanya Deras 01/03/2023 1 [facility] (MEDICARE REPLACEMENT/A DVANTAGE - PPO) [id number] Chaitanya Deras [id number] Chaitanya Deras 07/13/2022 1 [place] [facility] Chaitanya Deras [id number] Chaitanya Deras 07/13/2022 1 [facility] (MEDICARE SUPPLEMENT) [id number] Chaitanya Deras [id number] Chaitanya Deras 01/25/2022 1 [place] [facility] Chaitanya Deras [id number] Chaitanya Deras 01/25/2022 1 [facility] (MEDICARE SUPPLEMENT) [id number] Chaitanya Deras [id number] Chaitanya Deras Notes Date Note Type Note Provider Name and Address Organization Details Recorded Time 01/25/2022 text/html HPI Notes: Mr. Deras is an 86 yoM who follows with my partner, Dr. Courtney regarding elevated PSA. Patient has undergone three negative prostate biopsies. He had a Green-light TURP (02/24/13) by Dr. Lindo. He has twin brothers with prostate cancer. He has had 2 negative TRUS bx - (June 2007 - [place] and 03/06/12 - [place] - 81.5 gm). His PSA has flucuated over several years. He tried Ditropan in the past - caused constipation. UroNav bx (01/18/18) - 65.3 gm - high grade PIN (lesion) - no cancer 05/23/21 - He presents for follow-up on PSA. He had a cardiac stent placed in June 2019. He voids every 2-3 hours during the day and 2-3x/night. He still has a slow stream - denies hesitancy or dysuria. PSA - 3.31 (10/24/05) - 5.61 (08/07/18) - 6.25 (04/12/07) - 6.28 (02/05/19) - 6.34 (01/24/10) - 5.52 (05/21/19) - 4.36 (08/03/10) - 6.36 (09/1019) - 7.76 (01/25/12) - 7.60 (04/07/20) - 7.51 (08/02/12) - 7.14 (07/12/20) - 4.03 (12/15/13) - 7.79 (01/10/21) - 5.56 (12/04/14) - 6.57 (05/05/21) - 4.06 (01/05/16) - 5.79 (02/21/17) - 7.07 (08/14/17) - 7.12 (11/07/17) Prostate MRI (11/20/17) - 67 gm - Lesion #1 - (PI-RADS - 4) - Left apex - 1.1 cm x 0.9 cm - 0.8 cm left of mid-line at apex Prostate MRI (04/21/20) - 73 gm - no suspicious lesions 01/25/2022: Here for follow up elevated PSA, family history of prostate cancer, and BPH s/p GL PVP. Previous PSA 8.08 ng/mL. PSA today is 8.5 Seen today with his who provides some of the history. Marco Cat MD [address] [place] [address],[address], [place], [address], [facility] 01/25/2022 14:03:54 07/13/2022 text/html HPI Notes: Mr. Deras is an 86 yoM who follows with my partner, Dr. Courtney regarding elevated PSA. Patient has undergone three negative prostate biopsies. He had a Green-light TURP (02/24/13) by Dr. Lindo. He has twin brothers with prostate cancer. He has had 2 negative TRUS bx - (June 2007 - [place] and 03/06/12 - [place] - 81.5 gm). His PSA has fluctuated over several years. He tried Ditropan in the past - caused constipation. UroNav bx (01/18/18) - 65.3 gm - high grade PIN (lesion) - no cancer 05/23/21 - He presents for follow-up on PSA. He had a cardiac stent placed in June 2019. He voids every 2-3 hours during the day and 2-3x/night. He still has a slow stream - denies hesitancy or dysuria. PSA - 3.31 (10/24/05) - 5.61 (08/07/18) - 6.25 (04/12/07) - 6.28 (02/05/19) - 6.34 (01/24/10) - 5.52 (05/21/19) - 4.36 (08/03/10) - 6.36 (09/1019) - 7.76 (01/25/12) - 7.60 (04/07/20) - 7.51 (08/02/12) - 7.14 (07/12/20) - 4.03 (12/15/13) - 7.79 (01/10/21) - 5.56 (12/04/14) - 6.57 (05/05/21) - 4.06 (01/05/16) - 7.7 (06/29/2022) - 5.79 (02/21/17) - 7.07 (08/14/17) - 7.12 (11/07/17) Prostate MRI (11/20/17) - 67 gm - Lesion #1 - (PI-RADS - 4) - Left apex - 1.1 cm x 0.9 cm - 0.8 cm left of mid-line at apex Prostate MRI (04/21/20) - 73 gm - no suspicious lesions 01/25/2022: Here for follow up elevated PSA, family history of prostate cancer, and BPH s/p GL PVP. Previous PSA 8.08 ng/mL. PSA today is 8.5 Seen today with his who provides some of the history. 07/13/2022: Here for follow up elevated PSA, family history of prostate cancer, and BPH s/p GL PVP. Most recent PSA 7.7 ng/mL This visit was conducted by telephone due to the COVID-19 crisis. Prior to conducting our telephone visit, the patient was apprised of the risks, benefits and alternatives to telephone visits including but not limited to poor audio quality, interrupted visits due to technological limitations, delays in medical evaluation and treatment due to deficiencies or failures of equipment, failure of security protocols resulting in a breach of privacy of personal medical information and a lack of access to complete medical records resulting in not fully informed decisions. Also, because of the COVID-19 pandemic, it was not possible for the patient to sign the privacy regulations, HIPAA release and assignment of benefits forms. The patient was given the opportunity to ask questions about these policies and gave verbal acknowledgement and approval of these policies as well as to hold this meeting by telephone. Lastly, the patient agreed to allowing their medication history to be pulled from a national pharmacy database to facilitate and coordinate their care. Marco Cat MD [address] [place] [address],[address], [place], [address], [facility] 07/13/2022 17:05:59 01/03/2023 text/html HPI Notes: Mr. Deras is an 87 yoM who follows with my partner, Dr. Courtney regarding elevated PSA. Patient has undergone three negative prostate biopsies. He had a Green-light TURP (02/24/13) by Dr. Lindo. He has twin brothers with prostate cancer. He has had 2 negative TRUS bx - (June 2007 - [place] and 03/06/12 - [place] - 81.5 gm). His PSA has fluctuated over several years. He tried Ditropan in the past - caused constipation. UroNav bx (01/18/18) - 65.3 gm - high grade PIN (lesion) - no cancer 05/23/21 - He presents for follow-up on PSA. He had a cardiac stent placed in June 2019. He voids every 2-3 hours during the day and 2-3x/night. He still has a slow stream - denies hesitancy or dysuria. PSA - 3.31 (10/24/05) - 5.61 (08/07/18) - 6.25 (04/12/07) - 6.28 (02/05/19) - 6.34 (01/24/10) - 5.52 (05/21/19) - 4.36 (08/03/10) - 6.36 (09/1019) - 7.76 (01/25/12) - 7.60 (04/07/20) - 7.51 (08/02/12) - 7.14 (07/12/20) - 4.03 (12/15/13) - 7.79 (01/10/21) - 5.56 (12/04/14) - 6.57 (05/05/21) - 4.06 (01/05/16) - 7.7 (06/29/2022) - 5.79 (02/21/17) - 7.07 (08/14/17) - 7.12 (11/07/17) Prostate MRI (11/20/17) - 67 gm - Lesion #1 - (PI-RADS - 4) - Left apex - 1.1 cm x 0.9 cm - 0.8 cm left of mid-line at apex Prostate MRI (04/21/20) - 73 gm - no suspicious lesions 01/25/2022: Here for follow up elevated PSA, family history of prostate cancer, and BPH s/p GL PVP. Previous PSA 8.08 ng/mL. PSA today is 8.5 Seen today with his who provides some of the history. 07/13/2022: Here for follow up elevated PSA, family history of prostate cancer, and BPH s/p GL PVP. Most recent PSA 7.7 ng/mL 01/03/2023: Here for follow up elevated PSA, family history of prostate cancer, and BPH s/p GL PVP. PSA today 10.7 ng/mL Marco Cat MD [address] [facility],[address], [place], [address], [facility] 01/03/2023 14:55:19 04/20/2023 text/html HPI Notes: 87 yo M who follows with Dr. Cat for elevated PSA. Patient has undergone three negative prostate biopsies. He had a Green-light TURP (02/24/13) by Dr. Lindo. He has twin brothers with prostate cancer. He has had 2 negative TRUS bx - (June 2007 - [place] and 03/06/12 - [place] - 81.5 gm). His PSA has fluctuated over several years. He tried Ditropan in the past - caused constipation. UroNav bx (01/18/18) - 65.3 gm - high grade PIN (lesion) - no cancer 05/23/21 - He presents for follow-up on PSA. He had a cardiac stent placed in June 2019. He voids every 2-3 hours during the day and 2-3x/night. He still has a slow stream - denies hesitancy or dysuria. 04/20/23 - He presents for UroNav bx for elevated PSA and PI-RADS 4 lesion at Right anterior apex. __ PSA - 3.31 (10/24/05) - 5.61 (08/07/18) - 6.25 (04/12/07) - 6.28 (02/05/19) - 6.34 (01/24/10) - 5.52 (05/21/19) - 4.36 (08/03/10) - 6.36 (09/1019) - 7.76 (01/25/12) - 7.60 (04/07/20) - 7.51 (08/02/12) - 7.14 (07/12/20) - 4.03 (12/15/13) - 7.79 (01/10/21) - 5.56 (12/04/14) - 6.57 (05/05/21) - 4.06 (01/05/16) - 7.7 (06/29/2022) - 5.79 (02/21/17) - 8.5 (01/25/22) - 7.07 (08/14/17) - 10.7 (01/03/23) - 7.12 (11/07/17) - 8.26 (01/12/23) Prostate MRI (11/20/17) - 67 gm - Lesion #1 - (PI-RADS - 4) - Left apex - 1.1 cm x 0.9 cm - 0.8 cm left of mid-line at apex Prostate MRI (04/21/20) - 73 gm - no suspicious lesions Prostate MRI (01/23/23) - 84 mL - Lesion 1 - (PI-RADS 4) - 1.4 x 0.8 cm - Right anterior apex (TZ) - 11 o'clock Johnathan Courtney MD [address] [facility],[address], [place], [address], [facility] 04/20/2023 14:58:36 05/09/2023 text/html HPI Notes: Mr. Deras is an 87 yoM who follows with my partner, Dr. Courtney regarding elevated PSA. Patient has undergone three negative prostate biopsies. He had a Green-light TURP (02/24/13) by Dr. Lindo. He has twin brothers with prostate cancer. He has had 2 negative TRUS bx - (June 2007 - [place] and 03/06/12 - [place] - 81.5 gm). His PSA has fluctuated over several years. He tried Ditropan in the past - caused constipation. UroNav bx (01/18/18) - 65.3 gm - high grade PIN (lesion) - no cancer 05/23/21 - He presents for follow-up on PSA. He had a cardiac stent placed in June 2019. He voids every 2-3 hours during the day and 2-3x/night. He still has a slow stream - denies hesitancy or dysuria. PSA - 3.31 (10/24/05) - 5.61 (08/07/18) - 6.25 (04/12/07) - 6.28 (02/05/19) - 6.34 (01/24/10) - 5.52 (05/21/19) - 4.36 (08/03/10) - 6.36 (09/1019) - 7.76 (01/25/12) - 7.60 (04/07/20) - 7.51 (08/02/12) - 7.14 (07/12/20) - 4.03 (12/15/13) - 7.79 (01/10/21) - 5.56 (12/04/14) - 6.57 (05/05/21) - 4.06 (01/05/16) - 7.7 (06/29/2022) - 5.79 (02/21/17) - 7.07 (08/14/17) - 7.12 (11/07/17) Prostate MRI (11/20/17) - 67 gm - Lesion #1 - (PI-RADS - 4) - Left apex - 1.1 cm x 0.9 cm - 0.8 cm left of mid-line at apex Prostate MRI (04/21/20) - 73 gm - no suspicious lesions 01/25/2022: Here for follow up elevated PSA, family history of prostate cancer, and BPH s/p GL PVP. Previous PSA 8.08 ng/mL. PSA today is 8.5 Seen today with his who provides some of the history. 07/13/2022: Here for follow up elevated PSA, family history of prostate cancer, and BPH s/p GL PVP. Most recent PSA 7.7 ng/mL 01/03/2023: Here for follow up elevated PSA, family history of prostate cancer, and BPH s/p GL PVP. PSA today 10.7 ng/mL 05/09/2023: Here for follow up elevated PSA, family history of prostate cancer, and BPH s/p GL PVP. He completed a UroNav biopsy with Dr. Courtney which showed 1 core of [facility] 3+3 prostate cancer in the target biopsy only. No adverse effects from the biopsy. We are joined on the phone by his . Prior to conducting our telephone visit, the patient was apprised of the risks, benefits and alternatives to telephone visits including but not limited to poor audio quality, interrupted visits due to technological limitations, delays in medical evaluation and treatment due to deficiencies or failures of equipment, failure of security protocols resulting in a breach of privacy of personal medical information and a lack of access to complete medical records resulting in not fully informed. It was not possible for the patient to sign the privacy regulations, HIPAA release and assignment of benefits forms. The patient was given the opportunity to ask questions about these policies and gave verbal acknowledgement and approval of these policies as well as to hold this meeting by telephone. Lastly, the patient agreed to allowing their medication history to be pulled from a national pharmacy database to facilitate and coordinate their care. Marco Cat MD [address] [facility],[address], [place], [address], [facility] 05/09/2023 22:20:56
--- OUTSIDE RECORDS SUMMARY | 2023-09-11 06:20 | XMS_ITS | Clinical Summary ---
Author Name Unknown Organization [employer] Aff[facility] Address [place], [place] [address] Care Team Providers Care Shoe Coverer Name Role Phone Gerald Ng MD Primary Care Provider Allergies Active Allergy Reactions Criticality Noted Date Comments Amlodipine Edema 08/20/2007 Chlorthalidone Other - Describe In Comment Field 10/09/2012 Refractory Hypokalemia Lisinopril Intolerance-Can't Take 08/20/2007 Cough Metformin Nausea Only 11/21/2021 Monosodium Glutamate listed as intolerence Medications Medication Sig Dispensed Refills Start Date End Date Status Blood-Glucose Meter (Accu-Chek Judie Plus Meter)Indications:C ontrolled type 2 diabetes mellitus without complication, without long-term current use of insulin (HC) Test once daily. 1 Device 10/06/2020 Active acetaminophen (Mapap) 500 mg capsule Take 2 Capsules by mouth every 6 hours if needed. 02/02/2021 Active cholecalciferol, Vitamin D3, 25 mcg (1,000 unit) chew chewable tablet Chew 1,000 units by mouth once daily. 02/02/2021 Active TRUEplus Lancets 33 gauge misc once daily. 11/21/2021 Active triamcinolone (Triderm) 0.1 % cream Apply topically to affected area(s) once daily. 02/02/2021 Active carvediloL (Coreg) 6.25 mg tabletIndications:B enign essential HTN Take 1 Tablet (6.25 mg) by mouth two times daily with meals. 180 Tablet 3 12/26/2022 Active clopidogreL (PLAVIX) 75 mg tabletIndications:u nsure TAKE 1 TABLET (75 MG) BY MOUTH ONCE DAILY. 90 Tablet 3 03/23/2023 Active ondansetron (ZOFRAN ODT) 4 mg disintegrating tabletIndications:N ausea Place 1 Tablet (4 mg) on the tongue every 8 hours if needed for Nausea/Vomiting. 90 Tablet 2 04/06/2023 Active triamterene-hydroch lorothiazide, 37.5-25 mg, (DYAZIDE) 37.5-25 mg capsuleIndications: Benign essential HTN Take 1 Capsule by mouth every morning. 90 Capsule 3 04/06/2023 Active colestipoL (COLESTID) 1 gram tabletIndications:C holangitis Take 1 Tablet (1 g) by mouth once daily. 90 Tablet 1 04/06/2023 Active omeprazole 20 mg tabletIndications:C hronic GERD Take 1 Tablet (20 mg) by mouth two times daily. 180 Tablet 3 04/06/2023 Active atorvastatin (LIPITOR) 20 mg tabletIndications:M ixed hyperlipidemia Take 1 Tablet (20 mg) by mouth once daily. 90 Tablet 3 04/06/2023 Active blood sugar diagnostic (Accu-Chek Judie Plus test strp) stripIndications:Co ntrolled type 2 diabetes mellitus without complication, without long-term current use of insulin (HC) TEST ONCE DAILY. 100 Each 3 04/25/2023 Active lancets (Accu-Chek Softclix Lancets)Indications :Controlled type 2 diabetes mellitus without complication, without long-term current use of insulin (HC) TEST ONCE DAILY. 100 Each 3 04/25/2023 Active nitroglycerin (NITROSTAT) 0.4 mg sublingual tabletIndications:N STEMI (non-ST elevated myocardial infarction) (HC) PLACE 1 TABLET (0.4 MG) UNDER THE TONGUE EVERY 5 MINUTES IF NEEDED FOR CHEST PAIN. 25 Tablet 04/28/2023 Active losartan (COZAAR) 50 mg tabletIndications:H ypertension, unspecified type Take 1 Tablet (50 mg) by mouth once daily. 90 Tablet 3 07/09/2023 Active gabapentin (NEURONTIN) 300 mg capsuleIndications: Peripheral sensory neuropathy Take 1 Capsule (300 mg) by mouth at bedtime. 90 Capsule 3 08/14/2023 Active glipiZIDE extended-release (GLUCOTROL XL) 10 mg Extended-Release tabletIndications:C ontrolled type 2 diabetes mellitus without complication, without long-term current use of insulin (HC) Take 1 Tablet (10 mg) by mouth two times daily before meals. 180 Tablet 1 08/14/2023 Active mupirocin (BACTROBAN OINTMENT) ointmentIndications :MRSA (methicillin resistant Staphylococcus aureus) colonization Apply under fingernails and in nares twice daily for one week before surgery. 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 473 mL 09/03/2023 Active empagliflozin (Jardiance) 25 mg tabletIndications:C ontrolled type 2 diabetes mellitus without complication, without long-term current use of insulin (HC) Take 1 Tablet (25 mg) by mouth once daily. 90 Tablet 09/04/2023 Active gabapentin (NEURONTIN) 100 mg capsuleIndications: Peripheral sensory neuropathy One oral at bedtime, increase by one weekly to max of 3. 90 Capsule 12 07/09/2023 4 Discontinu ed(*Medica tion adjustment ) empagliflozin (Jardiance) 25 mg tabletIndications:C ontrolled type 2 diabetes mellitus without complication, without long-term current use of insulin (HC) Take 1 Tablet (25 mg) by mouth once daily. 90 Tablet 1 07/09/2023 4 Discontinu ed(*Availa bility/For mulary change/Cos t of medication ) glipiZIDE extended-release (GLUCOTROL XL) 10 mg Extended-Release tabletIndications:C ontrolled type 2 diabetes mellitus without complication, without long-term current use of insulin (HC) Take 2 Tablets (20 mg) by mouth once daily before a meal. 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 H/O non-ST elevation myocardial infarction (NSTE LA) 06/19/2023 Chronic nausea 02/27/2022 Type 2 diabetes mellitus wit h stage 3a chronic kidney disease, without long-term current use of insulin 07/12/2020 Stage 3a chronic kidney disease 07/12/2020 Sensorineural hearing loss, bilateral 12/13/2017 NSTEMI (non-ST elevated myocardial infarction) 0 09/07/2017 Benign non-nodular prostatic hyperplasia with lower urinary tract symptoms 02/23/2016 Non morbid obesity due to excess calories 2015 Mixed hyperlipidemia 12/10/2014 Type II or unspecified type diabetes mellitus without mention of complication, not stated as uncontrolled 08/12/2014 Unspecified essential hypertension Resolved Problems Problem Noted Date Diagnosed Date Resolved Date COVID-19 09/18/2022 04/06/2023 RUQ abdominal pain 03/09/2020 0 Fever 03/09/2020 04/20/2020 Elevated LFTs 03/09/2020 04/28/2021 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 04/02/2018 07/09/2023 Elevated PSA 02/23/2016 07/09/2023 Bigeminal rhythm 02/24/2013 04/28/2021 Screen for colon cancer 03/18/201003/31 Overview: Colonoscopy 02/2010 normal, history of polyps repeat in 5 years Colonoscopy 03/2015 normal repeat in 5 years Herpes zoster without mention of complication 03/30/20 07 04/28/2021 Obesity, unspecified 016 ED 04/20/2020 Impaired glucose tolerance test 08/12/2014 HTN (hypertension) 0 Encounters Date Type Department Care Team Description 09/03/2023 Telephone [facility] [address] [place] [address] Gerald Ng MD Refill Request (empagliflozin (Jardiance) 25 mg tablet/) 09/03/2023 Refill [facility] [address] [place] [address] Gerald Ng MD Refill Request (Jardiance) 08/24/2023 9:40 AM CDT Preop Visit [facility] [address] [place] [address] Gerald Ng MD Preoperative Exam (DOS: 09/11/2023, left hip replacement, Dr. Cerda, [facility]) 08/24/2023 Travel 08/14/2023 Telephone [facility] [address] [place] [address] Gerald Ng MD Pharmacist Medication Management 08/13/2023 Refill [facility] [address] [place] [address] Gerald Ng MD Refill Request (Glipizide Extended-release, Gabapentin) 08/09/2023 10:45 AM CDT Ancillary Procedure [facility] [address] [place] [address] 08/09/2023 9:45 AM CDT Office Visit [address] [address] Gerald Ng MD Follow Up (Diabetes - elevated glucose numbers); Hip Pain/problem (Left hip pain when standing or moving, started about 3 months ago, gradually getting worse) 08/09/2023 Travel 07/20/2023 Nurse/Clinic Staff Only [address] [address] Gerald Ng MD Immunization/Injection (COVID-19 vaccine) 07/10/2023 Orders Only [address] [address] Gerald Ng MD <No scans attached> 07/09/2023 8:00 AM CDT Office Visit [facility] [address] [place] [address] Gerald Ng MD Medicare ANNUAL (subsequent) Visit (87 year old) 07/09/2023 Travel 06/19/2023 10:30 AM PRACTICING MD ANESTHESIOLOGIST Office Visit [facility] [place] [facility] [address] [place] [address] Quinn Hidalgo MD Follow Up (Annual follow up Arteriosclerotic heart disease) 06/19/2023 Telephone [facility] [address] [place] [address] Quinn Hidalgo MD Concerns 06/19/2023 Travel 06/13/2023 Refill [facility] [address] [place] [address] Gerald Ng MD Refill Request (Jardiance) from Last 3 Months Immunizations Name Administration Dates Next Due AMB INFLUENZA IIV3 (AGE 65+ YRS) PF (Flu Clinic Only) 02/21/2017 AMB Influenza, IIV3 (Age >=3 years)(Flu Clinic Only) 04/09/2008 COVID-19 Vaccine Spikevax (M oderna 50mcg/0.5mL) 12YO+ [id number] Formula PF 07/20/2023 COVID-19 vaccine (Pfizer-Bio NTech 30mcg/0.3mL) 12YO+ ELIZABETH-SUCROSE PF, MDV 07/29/2021 COVID-19 vaccine (Pfizer-Bio NTech 30mcg/0.3mL) PF, MDV 07/03/2020,06/12/2020 Influenza A (H1N1), Inactiva massimo (Age >=3 Years) 04/16/2009 Influenza, High-dose Inactivated 01/14/2016,02/28,02/12/2014 Influenza, High-dose Quadriv alent Inactivated 02/15/2023,02/01/2022 Influenza, IIV3 (Age >=3 years) 02/05/20 13,02/01/2012,01/21/2010,01/19,02/22/2007,03/14/2006,04/12/2005 Influenza, Inactivated AIIV4 (Age 65+ Years) Preserv Free 01/26/2021,01/27/2020 Influenza, Inactivated IIV3 (Age 65+ Years) Preserv Free 03/07/2019,02/25/2018 Pneumococcal Conj 20-valent (Prevnar 20) 07/06/2022 Pneumococcal Poly,23-Valent (Pneumovax) 07/29/2002 Pneumococcal conj 13-Valent (Prevnar 13) 02/12/2014 RSV, Recombinant ADJ Reconst ituted (Arexvy 120MCG/0.5mL) 02/22/2023 Td (Age >=7 Years) 07/29/2002 Tdap 08/30/2021,02/01/2012 Zoster (Shingrix-RZV, recombinant) 11/13/2017,,07/30/2017 Family History Medical History Relation Name Comments Cancer-prostate Brother 1 Cancer-prostate Brother 2 Diabetes Brother 3 Diabetes Brother 4 Heart attack Father mi fatal at 73. Cancer-colon Maternal Grandmother Heart Disease Neg. 1 Anesthesia Problem Neg. 2 Cancer-colon Paternal Grandmother Diabetes Paternal Uncle Relation Name Status Comments Brother 1 Brother 2 Brother 3 Brother 4 Father Maternal Grandmother Neg. 1 Neg. 2 Paternal Grandmother Paternal Uncle Social History Tobacco Use Types Packs/Day Years Used Date Smoking Tobacco: Former Cigarettes 0.5 15 0 04/30/1954 - 04/30/1969 Smokeless Tobacco: Never Tobacco Cessation:Counseling Given: No Comments:Quit in early Alcohol Use Standard Drinks/Week Comments Not Currently 1 (1 standard drink = 0.6 oz pur e alcohol) socially, 1 drink per month PHQ-2 Answer Date Recorded PHQ-2 TOTAL SCORE 0 07/09/2023 Social Connections Answer Date Recorded Frequency of Communication with Friends and Fami ly 0 07/09/2023 Alcohol Use Answer Date Recorded How often do you have a drink containing alcohol ? 0 05/23/2021 Average Number of Drinks Not on file 022 Frequency of Binge Drinking Not on file 05/01 Financial Resource Strain Answer Date R ecorded Difficulty of Paying Living Expenses 3 07/09/2023 Difficulty of Paying Living Expenses Not on file 07/09/2023 Food Insecurity Answer Date Recorded Worried About Running Out of Food in the Last Ye ar 1 07/09/2023 Transportation Needs Answer Date Record ed Lack of Transportation (Medical) 1 07/09/2023 Housing Stability Answer Date Recorded Unable to Pay for Housing in the Last Year 1 07/09/2023 Sex and Gender Information Value Date Recorded Sex Assigned at Not on file Gender Identity Not on file Sexual Orientation Not on file Obstetrics History Last Filed Vital Signs Vital Sign Reading Time Taken Comments Blood Pressure 96/62 08/24/2023 9:36 AM CDT Pulse 65 08/24/2023 9:36 AM CDT Temperature 36.5 ??C (97.7 ??F) 09/29/2022 12:12 PM C DT Respiratory Rate 30 09/29/2022 12:12 PM CDT Oxygen Saturation 92% 08/24/2023 9:36 AM CDT Inhaled Oxygen Concentration - - Weight 98.5 kg (217 lb 3.2 oz) 08/24/2023 9:36 A M CDT Height 177.6 cm (5' 9.92) 08/24/2023 9:36 AM CD T Body Mass Index 31.24 08/24/2023 9:36 AM CDT Plan of Treatment Upcoming Encounters Date Type Department Care Team (Late st Contact Info) Description 11/08/2023 9:30 AM CDT Orders Only [facility] [address] [place] [address] [place] 11/08/2023 9:45 AM CDT Office Visit [facility] [address] [place] [address] Gerald Ng MD [address] [place] [address] Health Maintenance Due Date Last Done Comments COVID-19 vaccine series ( season) 2023 07/20/2023, 02/07/2023, 08/24/2022, Additional history exists Influenza for age 65+ 12/30/2023 02/15/2023 , 02/01/2022, 01/26/2021, Additional history exists Depression screening for age 12+ 07/09/2024 07/10/2023, 07/09/2023, 07/06/2022, Additional history exists Medicare Wellness for age 65+ 07/09/2024, 07/06/2022, 04/28/2021, Additional history exists BMI (ht and wt on same day) for age 18+ 08/23/2024 08/24/2023, 07/09/2023, 07/06/2022, Additional history exists Tetanus booster 08/31/2031 08/30/2021, 07/2011, 07/29/2002 Zoster (shingles) series for age 50+ Completed 11/13/2017, 08/02/2017, 07/30/2017 Tdap Completed 08/30/2021, 02/01/2012 Pneumococcal series for age 65+ Completed 07/06/2022, 02/12/2014, 07/29/2002 Medical Devices Implanted Type Area Rental Agent Device Identifier Shelf Expiration Date Model / Serial / Lot Stent Pancreatic [id number] Advanix Stra No Jil Plst - [id number] Implanted:Qty: 1 on 03/11/2020 by Claude Warner MD at [facility] N/A: Pancreas [facility] Gastroenterology [id number]# / / [id number] Stent Biliary [id number] Advanixduodenal [place] Plst - [id number] Implanted:Qty: 1 on 03/11/2020 by Claude Warner MD at [facility] N/A: Pancreas [facility] Gastroenterology [id number] 0# / / [id number] Procedures Procedure Name Priority Date/Time Associated Diagnosis Comments BASIC METABOLIC PANEL Routine 08/24/2023 10:27 AM CDT Preop examination CBC W PLT NO DIFF Routine 08/24/2023 10: 27 AM CDT Preop examination EKG 12 LEAD Routine 08/24/2023 10:17 AM CDT Screening for heart disease VT READING EKG - NO CHARGE, COMP ONLY Routine 08/24/2023 10:15 AM CDT Screening for heart disease XR HIP 1 VIEW W PELVIS LEFT Routine 08/09/2023 10:25 AM CDT Hip pain, left URINE ALBUMIN TO CREATININE RATIO, RANDOM Routine 07/09/2023 8:56 AM CDT Controlled type 2 diabetes mellitus without complication, without long-term current use of insulin (HC) FERRITIN Routine 07/09/2023 8:51 AM CDT Anemia of unknown etiology HEMOGLOBIN Routine 07/09/2023 8:51 AM CDT Anemia of unknown etiology TSH WITH REFLEX Routine 07/09/2023 8:51 AM CDT Fatigue, unspecified type FOLIC ACID Routine 07/09/2023 8:51 AM CDT Peripheral sensory neuropathy VITAMIN B12 Routine 07/09/2023 8:51 AM CDT Peripheral sensory neuropathy PSA TOTAL (DIAGNOSTIC) Routine 07/09/2023 8:51 AM CDT Prostate cancer (HC) BASIC METABOLIC PANEL Routine 07/09/2023 8:51 AM CDT Controlled type 2 diabetes mellitus without complication, without long-term current use of insulin (HC) LIPID PANEL W REFLEX MEASURED LDL Routine 07/09/2023 8:51 AM CDT Controlled type 2 diabetes mellitus without complication, without long-term current use of insulin (HC) HEMOGLOBIN A1C Routine 07/09/2023 8:51 AM CDT Controlled type 2 diabetes mellitus without complication, without long-term current use of insulin (HC) from Last 3 Months Results * CBC W PLT NO DIFF (08/24/2023 10:27 AM CDT) WHITE BLOOD COUNT 7.9 4.5 - 11.0 thou/cu mm 08/24/2023 10:34 AM CDT [facility] RED BLOOD COUNT 5.42 4.30 - 5.90 mil/cu mm 08/24/2023 10:34 AM CDT [facility] HEMOGLOBIN 17.1 13.5 - 17.5 g/dL 08/24/2023 10:34 AM CDT [facility] HEMATOCRIT 51.0 37.0 - 53.0 % 08/24/2023 10:34 AM CDT [facility] MCV 94 80 - 100 fL 08/24/2023 10:34 AM CDT [facility] MCH 31.5 26.0 - 34.0 pg 08/24/2023 10:34 AM CDT [facility] MCHC 33.5 32.0 - 36.0 g/dL 08/24/2023 10:34 AM CDT [facility] RDW 14.1 11.5 - 15.5 % 08/24/2023 10:34 AM CDT [facility] PLATELET COUNT 207 140 - 440 thou/cu mm 08/24/2023 10:34 AM CDT [facility] MPV 9.6 6.5 - 11.0 fL 08/24/2023 10:34 AM CDT [facility] Blood BLOOD SPECIMEN / Unknown Venipuncture / Unknown 08/24/2023 10:27 AM CDT 08/24/2023 10:28 AM CDT Gerald Ng MD HEMATOLOGY [facility] [address] [place] [address], * (ABNORMAL) BASIC METABOLIC PANEL (08/24/2023 10:27 AM CDT) Only the most recent of2 resultswithin the time period is included. SODIUM 141 136 - 145 mmol/L 08/24/2023 4:26 PM CDT [facility] POTASSIUM 4.4 3.5 - 5.1 mmol/L 08/24/2023 4:26 PM T [facility] CHLORIDE 103 98 - 107 mmol/L 08/24/2023 4:26 PM CDT [facility] CO2,TOTAL 27 22 - 29 mmol/L 08/24/2023 4:26 PM T [facility] ANION GAP 11 5 - 18 08/24/2023 4:26 PM T [facility] GLUCOSE 261(H) 70 - 99 mg/dL 08/24/2023 4:26 PM CDT [facility] CALCIUM 9.7 8.8 - 10.2 mg/dL 08/24/2023 4:26 PM T [facility] BUN 34(H) 8 - 23 mg/dL 08/24/2023 4:26 PM CDT [facility] CREATININE 1.57(H) 0.70 - 1.20 mg/dL 08/24/2023 4:26 PM CDT [facility] BUN/CREAT RATIO 22(H) 10 - 20 4:26 PM CDT [facility] eGFR 43(L) >90 mL/min/1.7 3m2 08/24/2023 4:26 PM CDT [facility] Comment:As of 2021, eG FR is calculated by the CKD-EPI creatinine equation without race adjustment. ??eGFR can be influenced by muscle mass, exercise, and diet. ??The reported eGFR is an estimation only and is only applicable if the renal function is stable. Blood BLOOD SPECIMEN / Unknown Venipuncture / Unknown 08/24/2023 10:27 AM CDT 08/24/2023 10:28 AM CDT Gerald Ng MD CHEMISTRY [facility] [address] [place] [address], * EKG 12 LEAD (08/24/2023 10:17 AM CDT) Gerald Ng MD EKG ORD * VT READING EKG - NO CHARGE, COMP ONLY (08/24/2023 10:15 AM CDT) Gerald Ng MD PB - PROVIDER READINGS * XR HIP 1 VIEW W PELVIS LEFT (08/09/2023 10:25 AM CDT) Anatomical Region Laterality Modality HIPS, HIPL, Pelvis Computed Radi ography 08/09/2023 3:23 PM CDT Narrative 08/09/2023 3:23 PM CDT For Patients: ??As a result of the Century Cures Act, medical imaging exams and procedure reports are released immediately into your electronic medical record. ??You may view this report before your referring provider. ??If you have questions, please contact your health care provider. Indication: Hip pain Technique: Pelvis and left hip 2 views Comparison: 09/13/2020 Findings: Narrowing and spurring are present at the left hip joint. No fracture noted. Pubic rami are intact. SI joints maintained. 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 Dictated by Don Denny MD @ 08/09/2023 3:23:19 PM (Electronically Signed) Procedure Note Don Denny MD - 08/09/2023 For Patients: As a result of the Cures Act, medical imagingexams and procedure reports are released immediately into your electronicmedical record. You may view this report before your referring provider.If you have questions, please contact your health care provider. Indication: Hip pain Technique: Pelvis and left hip 2 views Comparison: 09/13/2020 Findings: Narrowing and spurring are present at the left hip joint. No fracturenoted. Pubic rami are intact. SI joints maintained. Impression: Moderate degenerative joint disease left hip which has progressed sincethe prior study. Dictated by Don Denny MD @ 08/09/2023 3:23:19 PM (Electronically Signed) Gerald Ng MD GENERAL IMAGIN G * URINE ALBUMIN TO CREATININE RATIO, RANDOM (07/09/2023 8:56 AM CDT) ALB RAND URINE 17.3 mg/L 07/09/2023 6:23 PM CDT [facility] CREATININE,URIN E 0.83 g/L 07/09/2023 6:23 PM CDT [facility] ALBUMIN TO CREATININE RATIO,RAND UR 20.8 <30.0 mg/g creat 07/09/2023 6:23 PM CDT [facility] Urine URINE SPECIMEN / Unknown Non-Blood / Unknown 07/09/2023 8:56 AM CDT 07/09/2023 8:56 AM CDT Narrative [facility] - 07/09/2023 6:23 PM CDT If Albumin to Creatinine Ratio is elevated, consider the following: ? Elevations seen with incipient nephropathy associated ?? with diabetes mellitus or hypertension. Stress, exercise,hematuria, ?? and urinary tract infection may also produce elevated results. If clinically indicated, confirm with ?24 Hour Albumin to Creatinine Ratio. ?? Gerald Ng MD URINE Performing Organization Address [facility] Co de Phone Number [facility] [address] [address], [place] * TSH WITH REFLEX (07/09/2023 8:51 AM CDT) TSH 1.52 0.27 - 4.20 uIU/mL 07/09/2023 6:40 PM CDT [facility] Blood BLOOD SPECIMEN / Unknown Venipuncture / Unknown 07/09/2023 8:51 AM CDT 07/09/2023 8:54 AM CDT Narrative [facility] - 07/09/2023 6:40 PM CDT In Adults, TSH values between 5.00 and 10.00 uIU/ml do not necessarily indicate the presence of Hypothyroidism. Correlation with clinical findings such as presence of goiter and/or Thyroperoxidase (TPO) Antibody may be helpful. For more information please refer to CHANTAL 2004; 291: 228-238. Gerald Ng MD CHEMISTRY Performing Organization Address [facility] Co de Phone Number [facility] [address] [address], [place] * (ABNORMAL) LIPID PANEL W REFLEX MEASURED LDL (07/09/2023 8:51 AM CDT) CHOLESTEROL,TOTAL 141 100 - 199 mg/dL 07/09/2023 6:40 PM CDT [facility] Comment: Cholesterol, Total Reference Ranges Desirable <200 mg/dL Borderline 200-239 mg/dL High >=240 mg/dL TRIGLYCERIDES 207(H) <150 mg/dL 07/09/2023 6:40 PM CDT [facility] HDL CHOLESTEROL 40(L) >40 mg/dL 6:40 PM CDT [facility] NON-HDL CHOLESTEROL 101 <145 mg/dl 07/09/2023 6:40 PM CDT [facility] CHOL/HDL RATIO 3.53 <4.50 07/09/2023 6:40 PM CDT [facility] LDL CHOLESTEROL 60 <=130 mg/dL 07/09/2023 6:40 PM CDT [facility] VLDL CHOLESTEROL 41(H) <=30 mg/dL 07/09/2023 6:40 PM CDT [facility] PROVIDER ORDERED STATUS RANDOM 07/09/2023 6:40 PM CDT [facility] Blood BLOOD SPECIMEN / Unknown Venipuncture / Unknown 07/09/2023 8:51 AM CDT 07/09/2023 8:54 AM CDT Gerald Ng MD [facility] [address] [place] [id number], * HEMOGLOBIN (07/09/2023 8:51 AM CDT) Pathologist [facility] HEMOGLOBIN 17.5 13.5 - 17.5 g/dL 07/09/2023 8:59 AM CDT [facility] MCV 93 80 - 100 fL 07/09/2023 8:59 AM CDT [facility] Blood BLOOD SPECIMEN / Unknown Venipuncture / Unknown 07/09/2023 8:51 AM CDT 07/09/2023 8:54 AM CDT Gerald Ng MD HEMATOLOGY [facility] [address] [place] [address], * (ABNORMAL) PSA TOTAL (DIAGNOSTIC) (07/09/2023 8:51 AM CDT) PSA TOTAL (DIAGNOSTIC) 8.69(H) <4.00 ng/mL 07/09/2023 6:40 PM CDT [facility] Blood BLOOD SPECIMEN / Unknown Venipuncture / Unknown 07/09/2023 8:51 AM CDT 07/09/2023 8:54 AM CDT [facility] - 07/09/2023 6:40 PM CDT The test method changed on 10/24/2022. If this test has been used for serial monitoring, rebaselining is recommended. Rebaselining consists of 2 measurements, collected 3-6 weeks apart. The [employer] total PSA assay is an electrochemiluminescence immunoassay [employer] performed on the Valdemar Ismael e immunoassay analyzers. Values obtained with different assay methods may be different and cannot be used interchangeably. Gerald Ng MD CHEMISTRY [facility] [address] [place] [address], * (ABNORMAL) HEMOGLOBIN A1C MONITORING (POCT) (07/09/2023 8:51 AM CDT) HEMOGLOBIN A1C MONITORING (POCT) 7.8(H) <=6.4 % 07/09/2023 9:04 AM CDT [facility] Blood BLOOD SPECIMEN / Unknown Venipuncture / Unknown 07/09/2023 8:51 AM CDT 07/09/2023 8:54 AM CDT [facility] - 07/09/2023 9:04 AM CDT ? (<=6.9%) ? Indicates good control ? (7.0% to 7.9%) ? Indicates fair control ? (>=8.0%) ? Indicates poor control ?? NOTE: ??These thresholds are guidelines and ?individual targets may vary. Falsely low levels may be seen with: Recent Transfusion, Recent Significant Blood Loss, Hemolytic Diseases, or Falsely elevated levels may be seen with: Untreated Anemias, Splenectomy ? Gerald Ng MD CHEMISTRY [facility] [address] [place] [address], * FOLIC ACID (07/09/2023 8:51 AM CDT) Pathologist [facility] FOLIC ACID 28.7 4.6 - 34.8 ng/mL 07/09/2023 7:13 PM CDT [facility] Blood BLOOD SPECIMEN / Unknown Venipuncture / Unknown 07/09/2023 8:51 AM CDT 07/09/2023 8:54 AM CDT Narrative [facility] - 07/09/2023 7:13 PM CDT Biotin supplements may cause clinically significant interference for this test assay. ??If interference is suspected, it is strongly recommended that biotin is discontinued for at least one week prior to retesting. Gerald Ng MD CHEMISTRY Performing Organization Address City/[facility]/ZIP Co de Phone Number [facility] [address] [place] [address], * FERRITIN (07/09/2023 8:51 AM CDT) [facility] FERRITIN 102.0 30.0 - 400.0 ng/mL 07/09/2023 6:40 PM CDT [facility] Blood BLOOD SPECIMEN / Unknown Venipuncture / Unknown 07/09/2023 8:51 AM CDT 07/09/2023 8:54 AM CDT Gerald Ng MD CHEMISTRY [facility] [address] [place] [address], * VITAMIN B12 (07/09/2023 8:51 AM CDT) Pathologist [facility] VITAMIN B12 694 232 - 1,245 pg/mL 07/09/2023 6:40 PM CDT [facility] Blood BLOOD SPECIMEN / Unknown Venipuncture / Unknown 07/09/2023 8:51 AM CDT 07/09/2023 8:54 AM CDT Narrative [facility] - 07/09/2023 6:40 PM CDT Biotin supplements may cause clinically significant interference for this test assay. ??If interference is suspected, it is strongly recommended that biotin is discontinued for at least one week prior to retesting. Gerald Ng MD CHEMISTRY [facility] 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 Healthcare Directive 03/01/2018 4:41 PM HE ALTHCARE DIRECTIVE, [facility], 04/03/08 Healthcare Directive 04/03/2008 HEALTH CARE DIRECTIVE, [facility], 04/03/08 * Full Code (Latest Code Status on File) Date Activated Date Inactivated Comments 03/16/2020 11:23 AM 03/16/2020 5:20 PM Question Answer Comments Code Status Discussion: Not Discussed * Full Code Date Activated Date Inactivated Comments 03/09/2020 3:32 PM 03/12/2020 3:32 PM Question Answer Comments Code Status Discussion: Not Discussed * Full Code Date Activated Date Inactivated Comments 07/05/2019 9:23 PM 07/14/2019 3:32 PM * Full Code Date Activated Date Inactivated Comments 07/05/2019 9:16 PM 07/05/2019 9:23 PM * Full Code Date Activated Date Inactivated Comments 09/08/2017 12:15 AM 09/11/2017 4:07 PM Question Answer Comments Code Status Discussion: Discussed Care Teams 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
[2023-09-11] MEDS: ACETAMINOPHEN 500 MG TABLET 1000 MG PO ×2 (06:40→19:41)
[2023-09-11] MEDS: OXYCODONE (CR) 10 MG TAB.ER.12H PO (06:40)
[2023-09-11] MEDS: CELECOXIB 200 MG CAPSULE PO (06:40)
[2023-09-11] MEDS: SODIUM CHLORIDE 0.9 % (FLUSH) 10 ML SYRINGE IVF (06:45)
[2023-09-11] MEDS: LACTATED RINGERS 1000 ML 1,000 ML 100 ML IV (06:45)
[2023-09-11] MEDS: fentaNYL 100 MCG/2 ML inj IVP (07:20)
[2023-09-11] MEDS: MIDAZOLAM HCL 1 MG/ML inj IVP (07:20)
--- NOTE | 2023-09-11 07:27 | SUR.PREOP ---
TIME?OUT:?62 PT/Donnell PANDEY RN/Prabhu BALES MDA?VERIFICATION?OF?SURGICAL?SITE,?PROCEDURE,?AND?CONSENT OBTAINED?PRIOR?TO?INVASIVE?PROCEDURE.
--- NOTE | 2023-09-11 07:30 | XR_ITS ---
Patient: AMADA HUDSON Facility:?[facility] Patient ID:?[id number] Site Patient ID:?[id number]. Site :?[id number] Study:?XRay-Hip Left INTRA OP-09/11/2023 10:34:09 AM Ordering Physician:MIGUEL Final Report: Indication: Hip replacement surgery Technique: AP hip fluoroscopic image. Fluoroscopy time 56.6 seconds. Findings/Impression: Hardware from a left total hip arthroplasty is in satisfactory position. Dictated by Don Denny MD @ 09/12/2023 12:07:47 PM Signed by:?Don Denny MD @09/12/2023 12:07:47 PM (Electronic Signature)
--- NOTE | 2023-09-11 08:13 | P.NB_ITS ---
Nerve Block Nerve Block Time Seen by Provider: 07:23 Date Seen: 09/11/23 Type of block requested by surgeon for post-operative analgesia: CITLALI/LFCN Side: left Time out performed: Yes Verification of patient name: Yes Verification of date of : Yes Site marking: site marked Name of person performing procedure: Toi Continuous monitoring Was continuous monitoring of O2 sat, B/P, cardiac rehab nurse, recorded every 15 minutes?: Yes Procedure Checklist: sterile prep, needles and gloves Ultrasound guided. Images saved: Yes Medications given in 5ml increments after negative aspiration: Ropivicaine %: 0.5 mL: 30 Needle gauge: 20 Decadron (mg): 10 Precedex (mcg): 25 Patient tolerated procedure well: Yes Additional comments: Needle noted below psoas tendon needle noted adjacent to LFCN Block Charges Block Charge (with Pro Fee): Other Periph Nerve Block Use of Ultrasound Machine for Block: Yes- US Guidance/pain block
--- NOTE | 2023-09-11 08:13 | W.ANESCHARGE ---
Anesthesia Charges Start Date/Time Anesthesia Start Date: 09/11/23 Anesthesia Start Time: 07:58 Stop Date/Time Anesthesia Stop Date: 09/11/23 Anesthesia Stop Time: 10:52 Summary Extremes of Age - Over 70 or under 1: MDA
--- NOTE | 2023-09-11 10:05 | XR_ITS ---
Patient: AMADA HUDSON Facility:?[facility] Patient ID:?[id number] Site Patient ID:?[id number]. Site :?[id number] Study:?XRay-Hip Left POST OP NADIR-09/11/2023 11:31:54 AM Ordering Physician:MIGUEL Final Report: Indication: Postop NADIR Technique: AP hip centered pelvic film and lateral view left hip Findings/Impression: Hardware from a left total hip arthroplasty is in satisfactory position. Bone alignment is normal. No sign of acute fracture. Postop changes are within normal limits. Dictated by Don Denny MD @ 09/12/2023 12:11:19 PM Signed by:?Don Denny MD @09/12/2023 12:11:19 PM (Electronic Signature)
--- NOTE | 2023-09-11 11:01 | W.ANESCHARGE ---
Anesthesia Charges Start Date/Time Anesthesia Start Date: 09/11/23 Anesthesia Start Time: 07:58 Stop Date/Time Anesthesia Stop Date: 09/11/23 Anesthesia Stop Time: 10:52
[2023-09-11] MEDS: fentaNYL 100 MCG/2 ML inj 50 MCG IVP ×2 (11:16→11:30)
--- NOTE | 2023-09-11 11:32 | SUR.PHASEI ---
Patient meets anesthesia PACU discharge criteria
--- NOTE | 2023-09-11 12:30 | P.ORPRC_ITS ---
Procedure Note Date of procedure: 09/11/23 Procedure: PREOPERATIVE DIAGNOSIS: Left hip osteoarthritis POSTOPERATIVE DIAGNOSIS: Left hip osteoarthritis NAME OF OPERATION: Hybrid left total hip arthroplasty SURGEON: Javier Cerda MD BIOLOGICAL CHEMIST: Em Rodriguez PA-C, [place] IMPLANTS: 1. [employer] [place] # 54 sector ingrowth cup 2. 36 x 54 +4 neutral polyethylene 3. [place] # 6 standard cemented stem 4. 36 + 5 cobalt chrome femoral head ANESTHESIA: General ESTIMATED BLOOD LOSS: 500 cc COMPLICATIONS: None SPECIMENS: None DRAINS: None PREOPERATIVE ANTIBIOTICS: Ancef 2 grams INDICATIONS: The patient is a 87-year-old with a longstanding history of severe, unrelenting left hip pain secondary to end-stage left hip osteoarthritis. Despite appropriate nonoperative management, including activity modification, use of an assist device, anti-inflammatories, [id number] pain medication, physical therapy and injections, they continue to have pain and disability. Operative intervention was offered. The risks, benefits and expected outcomes were discussed in detail. These included but were not limited to: Infection, bleeding, injury to blood vessel or nerve, venous thromboembolism. All questions were answered to their satisfaction. Use of an assistant professor of biochemistry was necessary throughout the case for patient positioning and safety, soft tissue retraction and closure. PROCEDURE: The patient was placed supine on the [place] table. General anesthesia was administered. The assistant professor of biochemistry made sure the patient was properly positioned. The left hip was prepped and draped in the usual sterile fashion. The image intensifier was brought in for a perfect AP pelvis and a perfect double tear drop AP view of each hip which were used for intraoperative templating with our fluoroscopic guide. An oblique incision was made 3 cm distal and 3 cm lateral to the anterior superior iliac spine. The assistant professor of biochemistry retracted the soft tissues to protect them. Subcutaneous dissection was taken with electrocautery to the superficial fascia. The fascia was divided in line with the incision. Blunt dissection was carried medially to the tensor fascia gustavo and sartorius interval. Deep dissection was carried with electrocautery. The circumflex vessels were cauterized and divided. The capsule was exposed and then divided in a T- fashion, tagged with #1 Ethibond sutures. Retractors were placed in the joint, held by the assistant professor of biochemistry. The corkscrew was placed in the femoral head. The neck cut was made in the subcapital region. We made a second neck cut more distal. The napkin ring of bone was removed. The femoral head was removed intact. Acetabular retractors were placed, held by the assistant professor of biochemistry. The labrum was sharply debrided. The capsule was released. The 43 mm reamer was used to the true medial wall. We then enlarged in 2 mm increments using the image intensifier for our reamer placement. We impacted the cup which had excellent purchase. We placed the polyethylene. Attention was then turned to the proximal femur. The limb was placed in 140 degrees of external rotation, maximum extension and adduction. A significant amount of time was spent releasing the capsule to allow us to deliver the femur into the wound and complete the femoral side safely. Retractors were held by the assistant professor of biochemistry throughout the femoral preparation. The estimator paperboard boxes and canal finder were used. Broaches were used to a stable size. The calcar reamer was u sed. Trial components were placed. The hip was reduced and was found to be stable with appropriate soft tissue tension. Length and offset had been nicely restored using the image intensifier and our fluoroscopic guide. Trial components were removed. The femoral canal was irrigated with pulse lavage, then thoroughly dried. The cement restrictor was placed. Cement was placed retrograde with the gun and hand pressurized. The stem was placed in the cement mantle in appropriate anteversion. The cement was allowed to harden. We placed the femoral head. Again, the hip was reduced and was found to be stable with appropriate soft tissue tension. Length and offset had been nicely restored. The assistant professor of biochemistry did a three minute dilute Betadine solution soak. The assistant professor of biochemistry irrigated the wound with 3 liters of normal saline via pulse lavage. The assistant professor of biochemistry repaired the anterior capsule with a #1 Vicryl and our previously placed Ethibond sutures. The assistant professor of biochemistry closed the fascia over the tensor fascia gustavo with a #1 PDO Stratafix, subcutaneous tissues with 2-0 Vicryl, skin with a running 3-0 Stratafix and glue. A dry dressing was applied by the assistant professor of biochemistry. Sponge and needle counts were correct x 2. The patient tolerated the procedure well; there were no apparent complications. They were awakened and extubated in the operating room, sent to the Post-Anesthesia Care Unit in satisfactory condition. PLAN: 1. The patient will be mobilized with physical therapy, weight-bearing as tolerates 2. Hold Plavix for 35 days. Xarelto x 35 days, then restart Plavix 3. The patient will be discharged once medically appropriate
[2023-09-11] MEDS: CEFAZOLIN 2 GM in 0.9 % SODIUM CHLORIDE Mini-bag 100 ML IVPB ×2 (13:50→21:23)
[2023-09-11] MEDS: ONDANSETRON 2 MG/ML inj 4 MG IVP (13:50)
[2023-09-11] MEDS: PROCHLORPERAZINE 5 MG/ML VIAL IV (16:16)
[2023-09-11] MEDS: OXYCODONE 5 MG TABLET PO ×3 (17:30→21:21)
[2023-09-11] MEDS: LACTATED RINGERS 1000 ML 1,000 ML 75 ML IV (19:41)
--- NOTE | 2023-09-11 20:01 | P.IMCN_ITS ---
Date of Consult Patient: Rudy Patient Consult date: 09/11/23 Requesting Physician: Orthopedics Primary Care Provider: Gerald Ng MD Consult Narrative Narrative: Chaitanya Deras is a 87 year old male with diabetes mellitus, coronary artery disease, stage 3 chronic kidney disease admitted to the hospital for left total hip arthroplasty under general anesthesia. Procedure performed by Dr. Cerda today. No apparent operative complications. Estimated blood loss of 500 mL. Patient reports doing well after surgery. He has nausea which he reports is a chronic problem for him. Initially he is requiring supplemental oxygen but by the time I see him he is able to wean off of oxygen. He has no dyspnea. No chest pain, fever or chills. Review of Systems Narrative: Patient reports that preoperatively was generally doing well no recent illness or injury. [facility] Medical History (Updated 09/11/23 @ 20:15 by Edward Johnson MD) PVC (premature ventricular contraction) ?I49.3 - Ventricular premature depolarization (ICD-10) PUD (peptic ulcer disease) ?K27.9 - Peptic ulcer, site unspecified, unspecified as acute or chronic, without hemorrhage or perforation (ICD-10) Prostate cancer ?C61 - Malignant neoplasm of prostate (ICD-10) 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) Viral upper respiratory tract infection ?J06.9 - Acute upper respiratory infection, unspecified (ICD-10) Stress ?F43.9 - Reaction to severe stress, unspecified (ICD-10) Positive D-dimer ?R79.89 - Other specified abnormal findings of blood chemistry (ICD-10) Gastritis ?K29.70 - Gastritis, unspecified, without bleeding (ICD-10) Diarrhea ?R19.7 - Diarrhea, unspecified (ICD-10) Closed head injury ?S09.90XA - Unspecified injury of head, initial encounter (ICD-10) Cholangitis ?K83.09 - Other cholangitis (ICD-10) Chest pain (07/30/12) ?R07.9 - Chest pain, unspecified (ICD-10) Atypical chest pain ?R07.89 - Other chest pain (ICD-10) Diabetes ?E11.9 - Type 2 diabetes mellitus without complications (ICD-10) Heart attack (2018) ?I21.9 - Acute myocardial infarction, unspecified (ICD-10) Hypertension ?I10 - Essential (primary) hypertension (ICD-10) Surgical History (Updated 09/11/23 @ 20:16 by Edward Johnosn MD) History of tonsillectomy and adenoidectomy ?Z90.89 - Acquired absence of other organs (ICD-10) S/P TURP ?Z90.79 - Acquired absence of other genital organ(s) (ICD-10) S/P ERCP ?Z98.890 - Other specified postprocedural states (ICD-10) History of cholecystectomy (2018) ?Z90.49 - Acquired absence of other specified parts of digestive tract (ICD- 10) H/O arthroscopy of right knee (01/17/08) ?Z98.890 - Other specified postprocedural states (ICD-10) History of phacoemulsification of cataract of left eye with intraocular lens implantation ?Z98.42 - Cataract extraction status, left eye (ICD-10) ?Z96.1 - Presence of intraocular lens (ICD-10) History of phacoemulsification of cataract of right eye with intraocular lens implantation ?Z98.41 - Cataract extraction status, right eye (ICD-10) ?Z96.1 - Presence of intraocular lens (ICD-10) History of YAG laser capsulotomy of lens of right eye ?Z98.41 - Cataract extraction status, right eye (ICD-10) Family History Father Stroke High blood pressure Mother High blood pressure CHF (congestive heart failure) Grandmother Colon cancer Son DVT (deep venous thrombosis) Social History (Updated 09/11/23 @ 20:06 by Edward Johnson MD) Narrative: He lives with his in [facility]. He can live on 1 level in his home. Remote history of smoking having quit about 50 years ago with a 15 pack-year history. He does not drink alcohol. Code status is DNR. Son Jerson is healthcare power of deputy county attorney and present with him in the hospital today Smoking Status: Never smoker Do you use any of these nicotine containing products: None Second hand tobacco smoke exposure: No How often do you have a drink containing alcohol: never AUDIT-C Alcohol total score: 0 Non-prescribed substance use: denies use service: No Meds Home Medications and Allergies Home Medications Medication Instructions Recorded Confirmed Type atorvastatin 20 mg tablet 20 mg PO DAILY 08/20/23 09/11/23 History carvedilol 6.25 mg tablet 6.25 mg PO BID 08/20/23 09/11/23 History clopidogrel 75 mg tablet 75 mg PO DAILY 08/20/23 09/11/23 History colestipol 1 gram tablet 1 g PO DAILY 08/20/23 09/11/23 History empagliflozin 25 mg tablet 25 mg PO DAILY 08/20/23 09/11/23 History (Jardiance) gabapentin 300 mg capsule 300 mg PO HS 08/20/23 09/11/23 History glipizide 10 mg tablet, extended 10 mg PO BID 08/20/23 09/11/23 History release 24 hr losartan 50 mg tablet 50 mg PO DAILY 08/20/23 09/11/23 History omeprazole 20 mg capsule,delayed 20 mg PO BID 08/20/23 09/11/23 History release ondansetron 4 mg disintegrating 4 mg PO Q8H PRN 08/20/23 09/11/23 History tablet triamterene 37.5 1 tab PO DAILY 08/20/23 09/11/23 History mg-hydrochlorothiazide 25 mg tablet cholecalciferol (vitamin D3) 25 25 mcg PO DAILY 09/10/23 09/11/23 History mcg (1,000 unit) capsule nitroglycerin 0.4 mg sublingual 0.4 mg sublingual Q5M PRN 09/10/23 09/11/23 History tablet Allergies Allergy/AdvReac Type Severity Reaction Status Date / Time amlodipine Allergy Unknown edema Verified 09/11/23 06:29 chlorthalidone Allergy Unknown refractory Verified 09/11/23 06:29 hypokalemia lisinopril Allergy Unknown Cough Verified 09/11/23 06:29 monosodium glutamate Allergy Unknown stomach Verified 09/11/23 06:29 distress Exam Narrative: Exam Narrative: He is alert and appears in no distress. He gives his own history. Oropharynx with small airway. Neck is supple without mass or adenopathy. Respirations are clear to auscultation. Cardiovascular: S1, S2, regular rate and rhythm. Abdomen: Bowel sounds active. Abdomen is soft without tenderness or mass. Left hip incision is bandaged without obvious drainage on the dressing or obvious bruising or erythema. His intact peripheral pulses. Diminished sensation in his toes. Intact strength in flexion extension of the feet/ankles/great toes bilaterally. No edema Const: Vital Signs, click to edit/add: Vital Signs - 24 hr 09/11/23 06:53 09/11/23 07:18 09/11/23 10:50 Temperature 97.8 F 97.7 F Pulse Rate 63 55 L 43 L Respiratory Rate 18 18 15 Blood Pressure 136/79 146/87 H 119/59 L Pulse Oximetry 97 97 94 Oxygen Delivery Me thod Room Air Nasal Cannula Aerosol Mask Oxygen Flow Rate 4 09/11/23 10:55 09/11/23 11:00 09/11/23 11:05 Temperature Pulse Rate 39 L 40 L 41 L Respiratory Rate 12 20 16 Blood Pressure 104/57 L 106/60 92/64 Pulse Oximetry 97 95 96 Oxygen Delivery Me thod Aerosol Mask Oxygen Flow Rate 10 09/11/23 11:10 09/11/23 11:15 09/11/23 11:20 Temperature Pulse Rate 53 L 52 L 51 L Respiratory Rate 19 12 12 Blood Pressure 114/65 130/80 130/62 Pulse Oximetry 95 99 99 Oxygen Delivery Me thod Aerosol Mask Oxygen Flow Rate 10 09/11/23 11:25 09/11/23 11:30 09/11/23 11:35 Temperature 97.9 F Pulse Rate 52 L 48 L 47 L Respiratory Rate 14 16 12 Blood Pressure 127/66 126/57 L 131/61 Pulse Oximetry 99 97 97 Oxygen Delivery Me thod Aerosol Mask Aerosol Mask Oxygen Flow Rate 10 10 09/11/23 11:47 09/11/23 12:00 09/11/23 12:15 Temperature 96.2 F L 96.5 F L Pulse Rate 47 L 46 L 48 L Respiratory Rate 16 16 16 Blood Pressure 129/71 117/65 107/64 Pulse Oximetry 90 88 92 Oxygen Delivery Me thod Room Air Room Air Room Air Oxygen Flow Rate 09/11/23 12:30 09/11/23 12:45 09/11/23 13:15 Temperature 97.6 F Pulse Rate 47 L 46 L 46 L Respiratory Rate 16 16 16 Blood Pressure 108/62 110/58 L 108/65 Pulse Oximetry 91 92 92 Oxygen Delivery Me thod Room Air Room Air Room Air Oxygen Flow Rate 09/11/23 13:30 09/11/23 14:00 09/11/23 15:00 Temperature Pulse Rate 47 L 49 L Respiratory Rate 16 16 Blood Pressure 114/63 114/60 Pulse Oximetry 93 92 90 Oxygen Delivery Me thod Room Air Nasal Cannula Room Air Oxygen Flow Rate 1 09/11/23 15:00 09/11/23 16:00 09/11/23 17:00 Temperature 97.5 F L 98.0 F Pulse Rate 52 L 57 L 58 L Respiratory Rate 16 16 16 Blood Pressure 121/64 119/85 112/62 Pulse Oximetry 90 90 90 Oxygen Delivery Me thod Nasal Cannula Room Air Room Air Oxygen Flow Rate 1 09/11/23 18:00 Temperature 98.1 F Pulse Rate 60 Respiratory Rate 16 Blood Pressure 131/78 Pulse Oximetry 91 Oxygen Delivery Me thod Room Air Oxygen Flow Rate Documenting provider has reviewed patient's vital signs: yes Assessment and Plan Assessment and plan (1) Postoperative nausea: Problem comment: Symptomatic treatment. Likely will resolve over the next day Status: Acute (2) Bradycardia: Problem comment: Pulse in the upper 40s today. Cut carvedilol dose in half temporarily. Reassess carvedilol dose before discharge Status: Acute (3) Hypertension: Problem comment: Blood pressure was relatively low postoperatively possibly due to blood loss. Gradually resume blood pressure medicines as tolerated Status: Acute (4) Diabetes: Problem comment: Sliding scale insulin. Resume normal oral diabetes medicines when he resumes normal diet, probably tomorrow Status: Acute (5) Postoperative hypoxia: Problem comment: Appears to have resolved. Patient is at risk for sleep apnea Status: Acute (6) Status post left hip replacement: Problem comment: Performed by Dr. Cerda 09/11/2023. No obvious operative complications. Status: Acute Assessment and Plan: Venous thromboembolism prophylaxis Per Dr. Cerda half dose rivaroxaban for 35 days. Hold clopidogrel until off rivaroxaban Plan Patient is admitted to the hospital for management of medical problems and recovery following hip arthroplasty. Patient is concerned about going home postoperatively and is considering correction facility placement for rehab. Therapy yet to assess the patient. Ongoing management of chronic medical problems and postoperative symptoms Total Time Spent Total Time Spent: Total time spent is 50 minutes, 30 minutes in coordination care discussing with patient his son and other providers ongoing management of medical problems following hip arthroplasty.
[2023-09-11] MEDS: INSULIN ASPART 100 UNIT/ML SUBCUT (21:20)
[2023-09-11] MEDS: carvediloL 6.25 MG TABLET 3.125 MG PO (21:22)
[2023-09-11] MEDS: SENNOSIDES 1 TAB TABLET 2 TAB PO (21:22)
--- NOTE | 2023-09-11 22:24 | PC.NURSE ---
End of Shift: Patient pleasant and cooperative. Afebrile. Dressing to left hip C/D/I. CMS intact. Rating pain 3-4/10 and PRN Oxycodone given x2. Up to chair and bathroom with 1 assist, walker and gait belt. C/o nausea at the start of shift, updated MD and order for Compazine. Able to tolerate regular diet with no further nausea.
[2023-09-12] MEDS: ACETAMINOPHEN 500 MG TABLET 1000 MG PO ×2 (01:33→06:53)
[2023-09-12 02:44] VITALS: BP 113/62; PULSE 60; RESP 16; TEMP 36.4; O2SAT 91
--- NOTE | 2023-09-12 05:47 | PC.NURSE ---
[id number] Pt slept well during night, rating pain to L hip 2-3/10 controlled with scheduled and prn medications, dressing C/D/I, ice to site throughout shift. ambulating with walker, GB, 1A, tolerating activity well. frequent but minimal urine output throughout night, will assess, bladder scan and straight cath if needed. pt denies N/V, tolerating PO intake.
[2023-09-12] MEDS: OMEPRAZOLE 20 MG CAPSULE DR PO (06:14)
[2023-09-12 06:40] LABS: Hematocrit 47.2 % (37.0-53.0); Hemoglobin* 15.7 gm/dL (13.5-17.5); Immature Granulocytes Pct Auto 0.2 %; Lymphocytes Percent Auto 7.2 % (20-44); Mean Corpuscular HGB Conc 33 gm/dL (32-36); Mean Corpuscular Hemoglobin 31 pg (26-34); Mean Corpuscular Volume 94 fL (80-100); Monocytes Percent Auto 8.9 % (0.0-11.0); Neutrophils Percent Auto 83.7 % (42.0-72.0); Platelet Count* 249 K/uL (140-440); RDW Coefficient of Variation % 12.9 % (11.5-15.5); Red Blood Count 5.01 m/uL (4.30-5.90); White Blood Count* 12.87 K/uL (4.50-11.00)
[2023-09-12 06:51] LABS: Slide Review Reflex No
[2023-09-12] MEDS: OXYCODONE 5 MG TABLET PO ×2 (06:53→09:34)
[2023-09-12 07:00] VITALS: BP 133/74; PULSE 65; RESP 16; RESP 18; TEMP 36.6; O2SAT 96
[2023-09-12 07:22] LABS: Potassium* 4.2 mmol/L (3.6-5.1); Sodium* 134 mmol/L (135-149)
[2023-09-12 07:25] LABS: Blood Urea Nitrogen* 45 mg/dL (7-30); Creatinine* 1.5 mg/dL (0.5-1.5); Est. Creatinine Clearance* 35.35; Estimated Glomerular Filt Rate 45 ml/min
--- NOTE | 2023-09-12 08:15 | PM.ORPN ---
Subjective Subjective Time Seen by Provider: 07:20 Date Seen: 09/12/23 Principal diagnosis: Status post left hip replacement Interval history: Chaitanya is comfortable this morning. He plans to discharge to [facility]. Ortho Exam Narrative Exam Narrative: Alert and oriented x3. Patient is in no acute distress. Converses without labored breathing. Hearing is grossly intact. Ambulates with a walker. Examination of the left hip shows dressing is clean, dry, and intact. Mild ecchymosis. Mild edema. CMS intact left lower extremity. Bilateral calves are soft and nontender. Const Vital Signs, click to edit/add: Vital Signs - 24 hr 09/11/23 10:50 09/11/23 10:55 09/11/23 11:00 Temperature 97.7 F Pulse Rate 43 L 39 L 40 L Pulse Rate [Pulse Oximeter] Respiratory Rate 15 12 20 Blood Pressure 119/59 L 104/57 L 106/60 Blood Pressure [Right Arm] Pulse Oximetry 94 97 95 Oxygen Delivery Method Aerosol Mask Aerosol Mask Oxygen Flow Rate 09/11/23 11:05 09/11/23 11:10 09/11/23 11:15 Temperature Pulse Rate 41 L 53 L 52 L Pulse Rate [Pulse Oximeter] Respiratory Rate 16 19 12 Blood Pressure 92/64 114/65 130/80 Blood Pressure [Right Arm] Pulse Oximetry 96 95 99 Oxygen Delivery Method Aerosol Mask Oxygen Flow Rate 09/11/23 11:20 09/11/23 11:25 09/11/23 11:30 Temperature Pulse Rate 51 L 52 L 48 L Pulse Rate [Pulse Oximeter] Respiratory Rate 12 14 16 Blood Pressure 130/62 127/66 126/57 L Blood Pressure [Right Arm] Pulse Oximetry 99 99 97 Oxygen Delivery Method Aerosol Mask Oxygen Flow Rate 09/11/23 11:35 09/11/23 11:47 09/11/23 12:00 Temperature 97.9 F 96.2 F L Pulse Rate 47 L 47 L 46 L Pulse Rate [Pulse Oximeter] Respiratory Rate 12 16 16 Blood Pressure 131/61 129/71 117/65 Blood Pressure [Right Arm] Pulse Oximetry 97 90 88 Oxygen Delivery Method Aerosol Mask Room Air Room Air Oxygen Flow Rate 09/11/23 12:15 09/11/23 12:30 09/11/23 12:45 Temperature 96.5 F L Pulse Rate 48 L 47 L 46 L Pulse Rate [Pulse Oximeter] Respiratory Rate 16 16 16 Blood Pressure 107/64 108/62 110/58 L Blood Pressure [Right Arm] Pulse Oximetry 92 91 92 Oxygen Delivery Method Room Air Room Air Room Air Oxygen Flow Rate 09/11/23 13:15 09/11/23 13:30 09/11/23 14:00 Temperature 97.6 F Pulse Rate 46 L 47 L 49 L Pulse Rate [Pulse Oximeter] Respiratory Rate 16 16 16 Blood Pressure 108/65 114/63 114/60 Blood Pressure [Right Arm] Pulse Oximetry 92 93 92 Oxygen Delivery Method Room Air Room Air Nasal Cannula Oxygen Flow Rate 1 09/11/23 15:00 09/11/23 15:00 09/11/23 16:00 Temperature 97.5 F L Pulse Rate 52 L 57 L Pulse Rate [Pulse Oximeter] Respiratory Rate 16 16 Blood Pressure 121/64 119/85 Blood Pressure [Right Arm] Pulse Oximetry 90 90 90 Oxygen Delivery Method Room Air Nasal Cannula Room Air Oxygen Flow Rate 1 09/11/23 17:00 09/11/23 18:00 09/11/23 19:00 Temperature 98.0 F 98.1 F 97.9 F Pulse Rate 58 L 60 Pulse Rate [Pulse Oximeter] 60 Respiratory Rate 16 16 18 Blood Pressure 112/62 131/78 Blood Pressure [Right Arm] 105/61 Pulse Oximetry 90 91 90 Oxygen Delivery Method Room Air Room Air Room Air Oxygen Flow Rate 09/11/23 21:30 09/11/23 23:00 09/11/23 23:00 Temperature 97.6 F Pulse Rate Pulse Rate [Pulse Oximeter] 67 59 L Respiratory Rate 18 16 Blood Pressure Blood Pressure [Right Arm] 119/58 L 129/85 Pulse Oximetry 92 91 90 Oxygen Delivery Method Room Air Room Air Room Air Oxygen Flow Rate 0 09/12/23 02:44 Temperature 97.6 F Pulse Rate Pulse Rate [Pulse Oximeter] 60 Respiratory Rate 16 Blood Pressure Blood Pressure [Right Arm] 113/62 Pulse Oximetry 91 Oxygen Delivery Method Room Air Oxygen Flow Rate Assessment and Plan Assessment and plan (1) Status post left hip replacement: Problem details: Dr. Cerda 09/11/2023. Status: Acute Assessment and Plan: Plan for discharge is today, and when they meets discharge criteria. DVT prophylaxis upon discharge, Xarelto for 35 days, hold Plavix. Restart Plavix once finished with 35 days of Xarelto.. Remove dressing 1 week. Observe wound and phone Orthopedics with any questions or concerns Use Ice on operative hip unrestricted. Return to clinic in 1 week with PA for a wound check Return to clinic in 6 weeks with surgeon Minimize narcotic use. Wean off and discontinue soon as possible. Activities as tolerated. No strenuous activity. Attend nursing home Facility PT and then outpt PT
[2023-09-12] MEDS: EMPAGLIFLOZIN 10 MG TABLET 25 MG PO (09:20)
[2023-09-12] MEDS: RIVAROXABAN 10 MG TABLET PO (09:21)
[2023-09-12] MEDS: carvediloL 6.25 MG TABLET 3.125 MG PO (09:21)
[2023-09-12] MEDS: SENNOSIDES 1 TAB TABLET 2 TAB PO (09:21)
[2023-09-12] MEDS: glipiZIDE XL 5 MG TAB 10 MG PO (09:22)
[2023-09-12] MEDS: LOSARTAN POTASSIUM 50 MG TABLET 25 MG PO (09:22)
[2023-09-12] MEDS: ATORVASTATIN 10 MG TABLET 20 MG PO (09:22)
[2023-09-12] MEDS: INSULIN ASPART 100 UNIT/ML SUBCUT (09:22)
--- NOTE | 2023-09-12 11:37 | PC.SOCIAL ---
Addendum entered by SHARMAINE Vigil 09/12/23 12:01: Family was updated on the discharge plan. Original Note: Discharge planning- Per therapy, Pt will benefit from SNF for rehab. Pt requests to go to [facility]. Secure e-mailed referral to Horacio Morris in admissions at [facility]. Pt was accepted for admission for today. [facility] can accept pt two hours after receiving discharge orders. Secure e-mailed discharge orders to [facility] at 11:30 am. Pt will discharge at 1:30 pm with pt's son transporting pt to SNF. Provided update to charge nurse. Completed preadmission screening. Confirmation #[id number]. Social Work will follow up as needed.
[2023-09-12] MEDS: lidocaine HCL 2 % JELLY (TOP) STERILE 6 ML UR (14:35)
--- NOTE | 2023-09-12 15:16 | PC.NURSE ---
The patient went to [facility] with his son and . Report was given to Izabela the nurse over at the facility. The patient was bladder scanned per the patients son's request after he voided... post void residual was 450. Sams catheter was placed per MD order.. Dressing to L hip is CDI.. Ice packs sent with the patient as well. Darlene CASTILLO BSN
== END 2023-09-12 15:00 | disposition home or self-care (01) ==
LOC: OR 06:37 → MEDSURG 06:37
PROVIDERS: PCP Family Medicine; Visit Provider Orthopaedic Surgery
PROC: (CPT 27130; principal; 2023-09-11 07:30)
DX: M16.12 Unilateral primary osteoarthritis, left hip (principal); G89.18 Other acute postprocedural pain; I12.9 Hypertensive chronic kidney disease with stage 1 through stage 4 chronic kidney disease, or unspecified chronic kidney disease; E11.22 Type 2 diabetes mellitus with diabetic chronic kidney disease; N18.30 Chronic kidney disease, stage 3 unspecified; I25.10 Atherosclerotic heart disease of native coronary artery without angina pectoris; E66.9 Obesity, unspecified; R09.02 Hypoxemia; R00.1 Bradycardia, unspecified; R11.0 Nausea; Z68.32 Body mass index [BMI] 32.0-32.9, adult
CPT/HCPCS: 27130; 01214; 36415; 51701; 51798; 64450; 73501; 76942; 82565; 82962; 84132; 84295; 84520; 85025; 86850; 86900; 86901; 97110; 97116; 97161; 97165; 97530; 99100; A9270; C1776; J0330; J0690; J0780; J1100; J2250; J2405; J2704; J2710; J2795; J3010; J3475; J3490; J7120

== ENCOUNTER 2023-09-26 13:07 | Outpatient (RCR) | payer MEDICARE, SELFPAY ==
--- NOTE | 2023-08-24 14:20 | PC.SOCIAL ---
Discharge planning: Pt reached out to Shop Manager Department expressing interest in going to a SNF for rehab after his hip replacement surgery on 09/11/2023. Pt wanted to have the SNF rehab stay set-up before he went in for his surgery. gaming cage worker explained the process and that SNFs do not typically commit to a SNF rehab bed that far in advance due to not knowing what there bed availability will look like that far in advance. gaming cage worker reviewed pt's insurance and it looks like he will not need a three night inpatient hospital stay in order to have coverage for a SNF rehab stay, but would have a prior authorization that would need to be ran and a possible $300.00 deductible. Pt was thankful for the information.
--- NOTE | 2023-08-29 14:43 | PC.SOCIAL ---
Pt called to discuss upcoming scheduled surgery on 09/11/23. Pt wanted social work to be aware that he does not have assistance available to him at home and would like to go to SNF. Discussed therapy evaluation and referral process. Pt has reached out to his insurance, [facility], and [facility]. Informed that [facility] is not contracted with pt's insurance, so if pt went to [facility] he would private pay. Pt only wants to go to a SNF that is contracted with his insurance ([employer]- [facility]). Pt's preference for SNF is [facility]. Pt verbalized that he does not want to go to [facility]. Informed pt that social work will make a note regarding today's discussion and will meet with pt when pt is in the hospital.
--- NOTE | 2023-09-10 14:10 | PC.SOCIAL ---
Addendum entered by SHARMAINE Vigil 09/10/23 15:32: Received a phone call back from Horacio Morris at [facility]. Horacio confirms that she has spoke to patient and will accept the referral when patient is in [facility] [place]. Original Note: Received a voicemail from patient to return phone call. Phone call to patient at [phone]. Patient reiterates that he needs to go to SNF after surgery due to not having full-time assistance at home. Patient has spoke to admissions at [facility] and informs that his [facility] insurance is in network with facility. Patient informs that he would like to go to that facility. Discussed the process of therapy evaluating patient after surgery and making discharge recommendations. Patient is aware of this process. Phone call to Horacio in admissions at [facility] to verify that she has spoken with patient. There was no answer, left voicemail requesting a return phone call. Social Work will continue to follow up as needed.
--- NOTE | 2023-09-26 14:38 | PT.OPEX ---
PT [facility] initial eval requires signature PT [facility] Start: 09/26/23 07:39 Freq: Status: Active Protocol: Document 09/26/23 07:40 PATRICIO (Rec: 09/26/23 14:36 PATRICIO [id number]) E-signed By Ramana Burgess DPT Physical Therapy Outpatient Evaluation Insurance Information Recert Due Date 12/20/23 Insurance Name Medicare B Medical Diagnosis L paul DOS 09/11/23 Treating Diagnosis L hip pain muscle weakness Referring MD federica herrera Subjective Subjective Ajay comes into clinic ~ 2 weeks L PAUL. He has been currently rehabbing at a SNF/ TCU and just returned home sunday. Overall feels like the hip is doing well with some generalized soreness in the muscles. Sleeping seems to be the biggest issue with intermittent cramping during the night. Since being home he has been cross stair thresholds within the home well. Still finds car transfers a challenge. Pain Comments 08/07 Current Work Status Retired Objective Other/Pertinent Objective GAIT: ambulates with increased UE use and forward trunk lean , decreased pace, decreased stride length HIP ROM Flexion: 60 degrees before pain knee flexed Extension: able to reach neutral Internal Rotation: 5 degrees before guarding and pain External Rotation 10-15 degrees before guarding and pain Abduction 25-30 degrees before pain LLE MMT: WNL on R Hip flexion: 3-/5 L Hip abduction: L3+ /5 L performed in seated Knee flexion: L 4/5 Knee extension: L3+ /5 Assessment Assessment/Impression POST-OP Patient presents with signs and symptoms consistent with diagnosis of L PAUL , s/p 2 week post operative. Rehab potential is good. Muir impairments include: decreased ROM and strength of the extremity, poor balance and compensatory gait patterning, pain/limitations with functional activities such as squatting, walking, and climbing stairs. Skilled PT is required to address these muir impairments and to provide and progress with an appropriate home exercise program. Plan of Care Rehabilitation Potential Good Physical Therapy Goals PAUL GOALS STG (within 4-5 weeks) 1) Pt will ambulate at least 15-20 minutes with SPC device, minimal antalgic gait for improved community mobility LTG: (within 8-10 weeks) 1) Pt will be indep with HEP for custodial management of pain/symptoms 2) Pt will improve hip AROM at least 0-90* for improved sit to stand transfers 3) Patient will ascend/descend at least 3-6 steps using single rail and reciprocal pattern to improve ease of mobility at home/community 4)Pt will ambulate at least 15 -20 minutes with no device, minimal antalgic gait for improved community mobility Coordination/Communication With Referral Source Treatment Plan/Direct Interventions Gait Training,Joint Mobilization,Manual Therapy, Neuromuscular Re-ed,Self-Care/ Home Management,Therapeutic Activities,Therapeutic Exercises Frequency/Duration 1-2 visits a week for 6-10 weeks Patient Will Be Discharged From Therapy Completion of LTG(s) Evaluation Billing Untimed Code Treatment Minutes 30 Complexity Low Certification Information Physician Comment/Change : Physician NPI Number #
== END 2023-11-28 09:39 | disposition home or self-care (01) ==
PROVIDERS: PCP Family Medicine; Visit Provider Orthopaedic Surgery
DX: Z96.642 Presence of left artificial hip joint (principal); M25.552 Pain in left hip; M62.81 Muscle weakness (generalized); Z51.89 Encounter for other specified aftercare
CPT/HCPCS: 97110; 97161

== ENCOUNTER 2023-10-03 21:30 | Emergency (ER) | payer MEDICARE, SELFPAY ==
[2023-10-03 22:02] VITALS: BP 107/65; PULSE 70; RESP 18; TEMP 36.8; O2SAT 94; BMI 29.8
--- NOTE | 2023-10-04 00:26 | CRLHL7_ITS ---
For Patients: As a result of the Century Cures Act, medical imaging exams and procedure reports are released immediately into your electronic medical record. You may view this report before your referring provider. If you have questions, please contact your health care provider. INDICATION: Post-op left leg swelling. LEFT LOWER EXTREMITY VENOUS DUPLEX ULTRASOUND TECHNIQUE: Duplex sonography using grayscale imaging as well as color and spectral Doppler interrogation was performed over the left lower extremity with attention to the deep venous system. FINDINGS: The left common femoral, femoral, deep femoral, popliteal, and posterior tibial veins show normal compressibility, color Doppler flow, and augmentation response. IMPRESSION: No evidence of deep venous thrombosis in the left lower extremity. ROBERTO LEE MD [employer] Dictated by: Chucky Lee MD @ 10/04/2023 02:06:57 (Electronically Signed)
--- NOTE | 2023-10-04 00:29 | ED.GENADULT ---
HPI - General Adult General Chief complaint: Lower Extremity Swelling Stated complaint: hip surgery 09/10, left leg swollen/sore Time Seen by Provider: 10/03/23 23:59 Source: patient Mode of arrival: ambulatory Limitations: no limitations History of Present Illness HPI narrative: 87-year-old male 3 weeks post op from left total hip arthroplasty presents with a 2-3 day history of increased pain in the left thigh area radiating into the left lateral knee. Is on Xarelto 10 mg for DVT prophylaxis. Does report prior history of DVT but he does not remember any of the circumstances surrounding that event. Does not believe that it was necessarily related to a surgery. No fevers, no new trauma or injury. Has been performing his PT as prescribed. Initially after surgery, he did spend 12 days at [facility] for postoperative recovery. Reports that he uses oxycodone at bedtime for sleep, Tylenol through the day. Has noticed swelling of the leg and is concerned for DVT. Called his physician son from another [place] telling him about the pain and swelling, son was of course concerned about the possibility of a blood clot. No fever, no signs of recent illness, no shortness of breath. He is on a beta-lebron which could potentially mask tachycardia. Surgical note reviewed, other than some initial bradycardia, recovery course was uncomplicated. Past medical history notable for diabetes, hypertension, hyperlipidemia. Nonsmoker, lives independently. Accompanied by his who is circling the emergency department, visibly frustrated with their long wait. She had to be reminded several times not to however in front of the physician work room due to patient confidentiality issues. ROS is notable for the musculoskeletal symptoms as described above. Otherwise negative for other generalized, skin, musculoskeletal, respiratory, cardiovascular, GI or urinary changes. Related Data Home Medications ?Medication ?Instructions ?Recorded ?Confirmed atorvastatin 20 mg tablet 20 mg PO DAILY 08/20/23 09/19/23 carvedilol 6.25 mg tablet 6.25 mg PO BID 08/20/23 09/19/23 clopidogrel 75 mg tablet 75 mg PO DAILY 08/20/23 09/19/23 colestipol 1 gram tablet 1 g PO DAILY 08/20/23 09/19/23 empagliflozin 25 mg tablet 25 mg PO DAILY 08/20/23 09/19/23 (Jardiance) gabapentin 300 mg capsule 300 mg PO HS 08/20/23 09/19/23 losartan 50 mg tablet 50 mg PO DAILY 08/20/23 09/19/23 omeprazole 20 mg capsule,delayed 20 mg PO BID 08/20/23 09/19/23 release ondansetron 4 mg disintegrating 4 mg PO Q8H PRN 08/20/23 09/19/23 tablet triamterene 37.5 1 tab PO DAILY 08/20/23 09/19/23 mg-hydrochlorothiazide 25 mg tablet cholecalciferol (vitamin D3) 25 25 mcg PO DAILY 09/10/23 09/19/23 mcg (1,000 unit) capsule nitroglycerin 0.4 mg sublingual 0.4 mg sublingual Q5M PRN 09/10/23 09/19/23 tablet Previous Rx's ?Medication ?Instructions ?Recorded acetaminophen 500 mg capsule 500 - 1,000 mg (1 - 2 x 500 mg) PO 09/12/23 Q6H PRN pain #100 caps oxycodone 5 mg tablet 2.5 - 5 mg (0.5 - 1 x 5 mg) PO 09/12/23 Q4-6H PRN Pain #42 tabs rivaroxaban 10 mg tablet (Xarelto) 10 mg PO DAILY DVT Prophylaxis #34 09/12/23 tabs sennosides 8.6 mg tablet (Senna 17.2 mg (2 x 8.6 mg) PO BID PRN 09/12/23 Lax) constipation #100 tabs cephalexin 500 mg capsule 500 mg PO TID 10 days #30 caps 10/04/23 Allergies Allergy/AdvReac Type Severity Reaction Status Date / Time amlodipine Allergy Unknown edema Verified 09/19/23 14:56 chlorthalidone Allergy Unknown refractory Verified 09/19/23 14:56 hypokalemia lisinopril Allergy Unknown Cough Verified 09/19/23 14:56 monosodium glutamate Allergy Unknown stomach Verified 09/19/23 14:56 distress [facility] Medical History PVC (premature ventricular contraction) ?I49.3 - Ventricular premature depolarization (ICD-10) PUD (peptic ulcer disease) ?K27.9 - Peptic ulcer, site unspecified, unspecified as acute or chronic, without hemorrhage or perforation (ICD-10) Prostate cancer ?C61 - Malignant neoplasm of prostate (ICD-10) 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) Viral upper respiratory tract infection ?J06.9 - Acute upper respiratory infection, unspecified (ICD-10) Stress ?F43.9 - Reaction to severe stress, unspecified (ICD-10) Positive D-dimer ?R79.89 - Other specified abnormal findings of blood chemistry (ICD-10) Gastritis ?K29.70 - Gastritis, unspecified, without bleeding (ICD-10) Diarrhea ?R19.7 - Diarrhea, unspecified (ICD-10) Closed head injury ?S09.90XA - Unspecified injury of head, initial encounter (ICD-10) Cholangitis ?K83.09 - Other cholangitis (ICD-10) Chest pain (07/30/12) ?R07.9 - Chest pain, unspecified (ICD-10) Atypical chest pain ?R07.89 - Other chest pain (ICD-10) Diabetes ?E11.9 - Type 2 diabetes mellitus without complications (ICD-10) Heart attack (2018) ?I21.9 - Acute myocardial infarction, unspecified (ICD-10) Hypertension ?I10 - Essential (primary) hypertension (ICD-10) Surgical History History of tonsillectomy and adenoidectomy ?Z90.89 - Acquired absence of other organs (ICD-10) S/P TURP ?Z90.79 - Acquired absence of other genital organ(s) (ICD-10) S/P ERCP ?Z98.890 - Other specified postprocedural states (ICD-10) History of cholecystectomy (2019) ?Z90.49 - Acquired absence of other specified parts of digestive tract (ICD-10) H/O arthroscopy of right knee (01/17/08) ?Z98.890 - Other specified postprocedural states (ICD-10) History of phacoemulsification of cataract of left eye with intraocular lens implantation ?Z98.42 - Cataract extraction status, left eye (ICD-10) ?Z96.1 - Presence of intraocular lens (ICD-10) History of phacoemulsification of cataract of right eye with intraocular lens implantation ?Z98.41 - Cataract extraction status, right eye (ICD-10) ?Z96.1 - Presence of intraocular lens (ICD-10) History of YAG laser capsulotomy of lens of right eye ?Z98.41 - Cataract extraction status, right eye (ICD-10) Family History Father Stroke High blood pressure Mother High blood pressure CHF (congestive heart failure) Grandmother Colon cancer Son DVT (deep venous thrombosis) Social History Narrative: He lives with his in [facility]. He can live on 1 level in his home. Remote history of smoking having quit about 50 years ago with a 15 pack-year history. He does not drink alcohol. Code status is DNR. Son Jerson is healthcare power of photolithographic stripper and present with him in the hospital today Smoking Status: Never smoker Do you use any of these nicotine containing products: None Second hand tobacco smoke exposure: No How often do you have a drink containing alcohol: never AUDIT-C Alcohol total score: 0 Non-prescribed substance use: denies use service: No Exam Const: Vital Signs, click to edit/add: Vital Signs - 24 hr 10/03/23 22:02 Temperature 98.3 F Pulse Rate [Left P ulse Oximeter] 70 Respiratory Rate 18 Blood Pressure [Ri ght Upper Arm] 107/65 Pulse Oximetry 94 Oxygen Delivery Me thod Room Air Documenting provider has reviewed patient's vital signs: yes Common normals: no apparent distress General appearance: cooperative and well kempt Other: Clean, cooperative. Good historian for age, minimal deficits HENMT: Common normals: normocephalic Head and scalp: normocephalic Face and sinus: normal facial exam Mouth: oral and palatal mucosa normal Eye: Common normals: conjunctivae normal General eye: normal appearance of both eyes Conjunctiva: conjunctiva(e) normal Neck & C-Spine: General: normal visual inspection Resp: Common normals: normal respiratory effort, no use of accessory muscles and clear to auscultation bilaterally Effort & inspection: able to speak in complete sentences Auscultation: clear to auscultation bilaterally Cardio: Common normals: regular rate, regular rhythm, S1 normal heart sound, S2 normal heart sound and no murmurs Rate: regular rate Rhythm: regular rhythm Heart sounds: S1 normal and S2 normal Extremity: Other: Right hip and knee grossly normal in appearance. Left leg shows 2+ edema up to the hip. Surgical incision on the left anterior hip healing very well with no significant surrounding redness, warmth or focal tenderness. The left knee has no obvious effusion, point bony tenderness or bruising. The entire leg is slightly red with tenderness to palpation of the left calf though no obvious palpable cord. 2+ pedal edema with good pedal pulses. Normal capillary refill of the skin. Neuro: Speech: speech normal Psych: Appearance: well kempt Attitude: calm and engaged Insight: insight good Judgement: judgment good Skin: Common normals: no rashes or lesions noted General skin exam: no rashes or lesions noted Course Course ED Course: Left leg swelling that would be a little more than expected for postoperative time line and status. Increased pain and rib are concerning for DVT. Prior history of DVT though the circumstances are unknown. Does seem to be appropriately taking his preventative Xarelto but a breakthrough DVT is certainly possible. I recommended labs including CBC, basic metabolic panel, CRP and D-dimer. I have called an ultrasound to look for possible DVT. Differential diagnosis including postoperative swelling, inflammatory arthritis, infection, musculoskeletal etiology of knee, among others. Await ultrasound findings. Reevaluation(s) Time of Reevaluation #1: 02:19 Reevaluation #1: Patient requesting pain medication, will be given Tylenol and oxycodone. Ultrasound findings are back and show no evidence of DVT but per the tech impression, it does show signs of tissue inflammation suspicious for cellulitis. No obvious abscess was seen. Less of those changes around the incision than lower on the leg which is curious and consistent with my exam as well. Discussed findings with patient. He will continue on his preventative Xarelto. I will start Keflex 1st dose given here in ED and continue on 3 times daily. Instructed him to drink a little bit more water. I would like for him to call his surgeon in the daylight hours and update him with these findings and recheck in 3-4 days in the office. Alarm symptoms reviewed that would warrant ED presentation. He verbalizes understanding and agreement. Vital Signs Vital signs: Initial Vital Signs Temperature 98.3 F 10/03/23 22:02 Temperature Source Temporal Artery Scan 10/03/23 22:02 Pulse Rate 70 10/03/23 22:02 Pulse Rhythm Regular 10/03/23 22:02 Respiratory Rate 18 10/03/23 22:02 Blood Pressure 107/65 10/03/23 22:02 Blood Pressure Mean 79 10/03/23 22:02 Blood Pressure Position Sitting 10/03/23 22:02 Pulse Oximetry 94 10/03/23 22:02 Oxygen Delivery Method Room Air 10/03/23 22:02 Vital Signs Temperature 98.3 F 10/03/23 22:02 Pulse Rate 70 10/03/23 22:02 Respiratory Rate 18 10/03/23 22:02 Blood Pressure 107/65 10/03/23 22:02 Pulse Oximetry 94 10/03/23 22:02 Oxygen Delivery Method Room Air 10/03/23 22:02 Temperature 98.3 F 10/03/23 22:02 Pulse Rate 70 10/03/23 22:02 Respiratory Rate 18 10/03/23 22:02 Blood Pressure 107/65 10/03/23 22:02 Pulse Oximetry 94 10/03/23 22:02 Oxygen Delivery Method Room Air 10/03/23 22:02 Medications Administered Medications: Generic Name Dose Route Start Last Admin Trade Name Freq PRN Reason Stop Dose Admin Acetaminophen 1,000 mg 10/04/23 02:03 10/04/23 02:09 Acetaminophen 500 Mg Tablet PO 10/04/23 02:04 1,000 mg ONCE ONE Administration Cephalexin HCl 500 mg 10/04/23 02:03 10/04/23 02:09 Cephalexin 500 Mg Capsule PO 10/04/23 02:04 500 mg ONCE ONE Administration Oxycodone HCl 5 mg 10/04/23 02:03 10/04/23 02:09 Oxycodone 5 Mg Tablet PO 10/04/23 02:04 5 mg ONCE ONE Administration Medical Decision Making Lab Data Lab results reviewed: Yes I reviewed the patient's lab results Lab results narrative: No significant leukocytosis or left shift. D-dimer is elevated but similar to 2020. Slightly elevated BUN but creatinine stable for patient. CRP only mildly elevated. Ultrasound was concerning for cellulitis but negative for DVT. Labs: Lab Results 10/04/23 Range/Units 00:45 WBC 8.09 (4.50-11.00) K/uL RBC 4.34 (4.30-5.90) m/uL Hgb 13.4 L (13.5-17.5) gm/dL Hct 42.4 (37.0-53.0) % MCV 98 (80-100) fL MCH 31 (26-34) pg MCHC 32 (32-36) gm/dL RDW Coeff of Fitz 13.0 (11.5-15.5) % Plt Count 369 (140-440) K/uL Neut % (Auto) 63.7 (42.0-72.0) % Lymph % (Auto) 20.3 (20-44) % Rolette % (Auto) 11.9 H (0.0-11.0) % Eos % (Auto) 3.1 (0.0-7.0) % Baso % (Auto) 0.5 (0.0-3.0) % Neut # (Auto) 5.16 (1.7-7.0) K/uL Lymph # (Auto) 1.64 (0.90-2.90) K/uL Rolette # (Auto) 1.00 H (0.00-0.90) K/UL Eos # (Auto) 0.25 (0.00-0.50) K/uL Baso # (Auto) 0.04 (0.00-0.30) K/uL Abs Immat Gran (auto) 0.04 (0.00-0.30) K/uL Imm/Tot Granulo (auto) 0.5 % INR 1.34 H (0.91-1.10) D-Dimer Quant (PE/DVT) 2.14 H (0.00-0.50) ug/ml Sodium 139 (135-149) mmol/L Potassium 3.8 (3.6-5.1) mmol/L Chloride 99 (96-114) mmol/L Carbon Dioxide 35 H (20-32) mmol/L Anion Gap 5 L (7-15) mEq/L BUN 33 H (7-30) mg/dL Creatinine 1.3 (0.5-1.5) mg/dL Estimated Creat Clear 42.12 Estimated GFR 54 ml/min Glucose 137 H (60-115) mg/dL Calcium 9.3 (8.4-10.6) mg/dL C-Reactive Protein 1.3 H (0.5-1.0) mg/dL Discharge Plan Discharge Clinical Impression: Cellulitis of left leg Patient Disposition: Home w/ Parent or Adult Condition: Stable Instructions: Cellulitis (ED) Additional Instructions: As we discussed, your ultrasound is negative for DVT or any blood clots. This is great news. It does however show tissue inflammation that is concerning for cellulitis. This is unexpected since your wound looks so good. Typically a cellulitis will start in an area of skin breakage, a surgical incision or some sort of injury. The infection will typically michaels out from that area in a gradual fashion. That does not seem to be your case. You do not have an elevated white blood cell count or elevated inflammatory markers. Your kidney function looks good as do your electrolytes. You could drink a little bit more water but otherwise, your labs are stable for you your blood clotting test, the D-dimer is a little elevated but this was elevated for you back in 2020 also and this may be normal for you. I do not want any potential infection to worsen, especially near your surgical site, therefore I would like to start an antibiotic. We will start cephalexin 3 times daily. Please call your orthopedic provider in the daylight hours and let them know that you were seen in the emergency department for this. I would like for them to see you early next week to recheck things. If things are worsening in the meantime you should come back to the emergency department. I certainly would want you to come back especially if there was fever, severe weakness, confusion or other worrisome findings. It looks like we are catching things early enough to treat any major complication. You may continue your physical therapy and weight-bearing as previously instructed. I have sent her prescription to [facility], your next dose would be due at around 10:00 a.m.. Activity Level: Activity as Tolerated Discharge Diet: Regular Prescriptions: New cephalexin 500 mg capsule 500 mg PO TID 10 Days Qty: 30 0RF No Action triamterene-hydrochlorothiazid 37.5-25 mg tablet 1 tab PO DAILY gabapentin 300 mg capsule 300 mg PO HS colestipol 1 gram tablet 1 g PO DAILY omeprazole 20 mg capsule,delayed release(DR/EC) 20 mg PO BID clopidogrel 75 mg tablet 75 mg PO DAILY Hold Instructions: Resume on 10/17/23. atorvastatin 20 mg tablet 20 mg PO DAILY carvedilol 6.25 mg tablet 6.25 mg PO BID losartan 50 mg tablet 50 mg PO DAILY Jardiance 25 mg tablet 25 mg PO DAILY ondansetron 4 mg tablet,disintegrating 4 mg PO Q8H PRN cholecalciferol (vitamin D3) 25 mcg (1,000 unit) capsule 25 mcg PO DAILY nitroglycerin 0.4 mg tablet, sublingual 0.4 mg sublingual Q5M PRN acetaminophen 500 mg capsule 500 - 1,000 mg PO Q6H MDD 3000mg per day PRN (Reason: pain) Qty: 100 0RF sennosides [Senna Lax] 8.6 mg Tablet 17.2 mg PO BID PRN (Reason: constipation) Qty: 100 0RF oxycodone 5 mg Tablet 2.5 - 5 mg PO Q4-6H MDD 6 tabs per day PRN (Reason: Pain) Qty: 42 0RF Rx Instructions: Minimize. Discontinue as soon as possible Xarelto 10 mg tablet 10 mg PO DAILY Qty: 34 0RF Rx Instructions: for 34 days, then resume Plavix Follow Up/Referrals: Gerald Ng MD [Primary Care Provider] - Stand Alone Forms: [employer] Info Instructions
[2023-10-04 00:52] LABS: Basophils Absolute Auto 0.04 K/uL (0.00-0.30); Basophils Percent Auto 0.5 % (0.0-3.0); Eosinophils Absolute Auto 0.25 K/uL (0.00-0.50); Eosinophils Percent Auto 3.1 % (0.0-7.0); Hematocrit 42.4 % (37.0-53.0); Hemoglobin* 13.4 gm/dL (13.5-17.5); Immature Granulocytes Abs Auto 0.04 K/uL (0.00-0.30); Immature Granulocytes Pct Auto 0.5 %; Lymphocytes Absolute Auto 1.64 K/uL (0.90-2.90); Lymphocytes Percent Auto 20.3 % (20-44); Mean Corpuscular HGB Conc 32 gm/dL (32-36); Mean Corpuscular Hemoglobin 31 pg (26-34); Mean Corpuscular Volume 98 fL (80-100); Monocytes Percent Auto 11.9 % (0.0-11.0); Neutrophils Absolute Auto 5.16 K/uL (1.7-7.0); Neutrophils Percent Auto 63.7 % (42.0-72.0); Platelet Count* 369 K/uL (140-440); Red Blood Count 4.34 m/uL (4.30-5.90); White Blood Count* 8.09 K/uL (4.50-11.00)
[2023-10-04 00:55] LABS: Slide Review Reflex No
[2023-10-04 01:04] LABS: Chloride* 99 mmol/L (96-114); Potassium* 3.8 mmol/L (3.6-5.1); Sodium* 139 mmol/L (135-149)
[2023-10-04 01:07] LABS: Anion Gap 5 mEq/L (7-15); Blood Urea Nitrogen* 33 mg/dL (7-30); Carbon Dioxide* 35 mmol/L (20-32); Creatinine* 1.3 mg/dL (0.5-1.5); Est. Creatinine Clearance* 42.12; Estimated Glomerular Filt Rate 54 ml/min; INR 1.34 (0.91-1.10); Prothrombin Time 17.5 Seconds
[2023-10-04 01:08] LABS: Calcium* 9.3 mg/dL (8.4-10.6); Glucose* 137 mg/dL (60-115)
[2023-10-04 01:10] LABS: C Reactive Protein* 1.3 mg/dL (0.5-1.0)
[2023-10-04 01:11] LABS: D Dimer Quantitative* 2.14 ug/ml (0.00-0.50)
[2023-10-04] MEDS: ACETAMINOPHEN 500 MG TABLET 1000 MG PO (02:09)
[2023-10-04] MEDS: OXYCODONE 5 MG TABLET PO (02:09)
[2023-10-04] MEDS: cephALEXin 500 MG CAPSULE PO (02:09)
== END 2023-10-04 02:28 | disposition home or self-care (01) ==
PROVIDERS: Emergency Provider Family Medicine; PCP Family Medicine
DX: L03.116 Cellulitis of left lower limb (principal)
CPT/HCPCS: 36415; 80048; 85025; 85379; 85610; 86140; 93971; 99284; A9270

== ENCOUNTER 2024-11-17 22:37 | Emergency (ER) | payer MEDICARE, SELFPAY ==
--- OUTSIDE RECORDS SUMMARY | 2024-11-17 22:39 | XMS_ITS | Clinical Summary ---
Author Organization [facility] Address [address] [place] [address] Care Team Providers Care Sales Assistant Name Role Phone Gerald Ng MD Primary Care Provider Allergies Active Allergy Reactions Criticality Noted Date Comments Amlodipine Edema 08/20/2007 Chlorthalidone Other - Describe In Comment Field 10/09/2012 Refractory Hypokalemia Lisinopril Intolerance-Can't Take 08/20/2007 Cough Metformin Nausea Only 11/21/2021 Monosodium Glutamate listed as intolerence Medications Blood-Glucose Meter (Accu-Chek Judie Plus Meter)Indications: Controlled type 2 diabetes mellitus without complication, without long-term current use of insulin (HC) Test once daily. 1 Device 10/07/19 21 Active acetaminophen (Mapap) 500 mg capsule Take 2 Capsules by mouth every 6 hours if needed. 02/03/20 21 Active cholecalciferol, Vitamin D3, 25 mcg (1,000 unit) chew chewable tablet Chew 1,000 units by mouth once daily. 02/03/20 21 Active TRUEplus Lancets 33 gauge misc once daily. 11/22/19 22 Active lancets (Accu-Chek Softclix Lancets)Indication s:Controlled type 2 diabetes mellitus without complication, without long-term current use of insulin (HC) TEST ONCE DAILY. 100 Each 3 04/25/20 23 Active mupirocin (BACTROBAN OINTMENT) ointmentIndication s:MRSA (methicillin resistant Staphylococcus aureus) colonization Apply under fingernails and in nares twice daily for one week before surgery. 22 g 09/03/19 24 Active losartan (COZAAR) 25 mg tabletIndications: Hypertension, unspecified type Take 1 Tablet (25 mg) by mouth once daily. 90 Tablet 3 04/17/20 24 Active atorvastatin (LIPITOR) 20 mg tabletIndications: Mixed hyperlipidemia Take 1 Tablet (20 mg) by mouth once daily. 90 Tablet 3 05/13/19 25 Active carvediloL (COREG) 6.25 mg tabletIndications: Benign essential HTN Take 1 Tablet (6.25 mg) by mouth two times daily with meals. 180 Tablet 3 05/13/19 25 Active clopidogreL (PLAVIX) 75 mg tabletIndications: unsure Take 1 Tablet (75 mg) by mouth once daily. 90 Tablet 3 05/13/19 25 Active colestipoL (COLESTID) 1 gram tabletIndications: Cholangitis (HC) Take 1 Tablet (1 g) by mouth once daily. 90 Tablet 3 05/13/19 25 Active omeprazole (PRILOSEC) 20 mg Delayed-Release capsuleIndications :Chronic GERD Take 1 Capsule (20 mg) by mouth two times daily before meals. 180 Capsule 3 05/13/19 25 Active triamterene-hydroc hlorothiazide, 37.5-25 mg, (DYAZIDE) 37.5-25 mg capsuleIndications :Benign essential HTN Take 1 Capsule by mouth once daily in the morning. 90 Capsule 3 05/13/19 25 Active ondansetron (ZOFRAN) 4 mg tabletIndications: Nausea Take 1 Tablet (4 mg) by mouth every 8 hours if needed for Nausea/Vomiting . 90 Tablet 05/13/19 25 Active nitroglycerin (NITROSTAT) 0.4 mg sublingual tabletIndications: Chest pain in adult Place 1 Tablet (0.4 mg) under the tongue every 5 minutes if needed for Chest Pain. 25 Tablet 1 05/20/19 25 Active blood sugar diagnostic (Accu-Chek Judie Plus test strp) stripIndications:C ontrolled type 2 diabetes mellitus without complication, without long-term current use of insulin (HC) TEST ONCE DAILY. 100 Each 3 08/06/19 25 Active triamcinolone 0.1 % creamIndications:R umang APPLY TO AFFECTED AREA(S) TWICE A DAY NOT TO EXCEED 14 DAYS PER EPISODE 45 g 08/06/19 25 Active tadalafiL (CIALIS) 5 mg tablet Take 5 mg by mouth once daily. 09/11/19 25 Active gabapentin (NEURONTIN) 300 mg capsuleIndications :Peripheral sensory neuropathy One oral qam or midday, and two at bedtime. 270 Capsule 3 11/11/19 25 Active glipiZIDE extended-release (GLUCOTROL XL) 10 mg Extended-Release tabletIndications: Controlled type 2 diabetes mellitus without complication, without long-term current use of insulin (HC) Take 1 Tablet (10 mg) by mouth two times daily before meals. 180 Tablet 1 11/11/19 25 Active empagliflozin (JARDIANCE) 25 mg tabletIndications: Controlled type 2 diabetes mellitus without complication, without long-term current use of insulin (HC) Take 1 Tablet (25 mg) by mouth once daily. 90 Tablet 1 11/11/19 25 Active chlorhexidine (Hibiclens) 4 % external liquidIndications: MRSA (methicillin resistant Staphylococcus aureus) colonization Apply neck down to toes and shower-off daily for one week before surgery. 473 mL 09/03/19 24 025 Discontin ued(*Med complete/ Regimen complete/ Level of care change) gabapentin (NEURONTIN) 300 mg capsuleIndications :Peripheral sensory neuropathy Take 2 Capsules (600 mg) by mouth at bedtime. 180 Capsule 3 05/13/19 25 025 Discontin ued(Reord er (E-cancel not sent)) glipiZIDE extended-release (GLUCOTROL XL) 10 mg Extended-Release tabletIndications: Controlled type 2 diabetes mellitus without complication, without long-term current use of insulin (HC) Take 1 Tablet (10 mg) by mouth two times daily before meals. 180 Tablet 1 05/13/19 25 025 Discontin ued(Reord er (E-cancel not sent)) empagliflozin (Jardiance) 25 mg tabletIndications: Controlled type 2 diabetes mellitus without complication, without long-term current use of insulin (HC) TAKE 1 TABLET DAILY 90 Tablet 09/19/19 25 025 Discontin ued(Reord er (E-cancel not sent)) empagliflozin (Jardiance) 25 mg tabletIndications: Controlled type 2 diabetes mellitus without complication, without long-term current use of insulin (HC) Take 1 Tablet (25 mg) by mouth once daily. 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) Active Problems Problem Noted Date Diagnosed Date Chronic kidney disease, stage 3b 05/13/2024 Status post hip replacement, left 09/11/2023 07/04/2023 Prostate cancer 07/09/2023 Peripheral sensory neuropathy 07/09/2023 H/O non-ST elevation myocardial infarction (NSTE ID) 06/19/2023 Chronic nausea 02/27/2022 Type 2 diabetes [...] 03/09/2020 04/28/2021 Coronary artery disease invo lving [place] coronary artery of [place] heart without angina pectoris 04/02/2018 07/09/2023 Elevated PSA 02/23/2016 07/09/2023 Bigeminal rhythm 02/24/2013 04/28/2021 Screen for colon cancer 03/18/201003/31 Overview (04/05/2015): Colonoscopy 02/2010 normal, history of polyps repeat in 5 years Colonoscopy 03/2015 normal repeat in 5 years Herpes zoster without mention of complication 03/30/20 07 04/28/2021 Obesity, unspecified 016 ED 04/20/2020 Impaired glucose tolerance test 08/12/2014 HTN (hypertension) 0 Encounters Date Type Department Care Team Description 11/10/2024 9:40 AM CDT Office Visit [facility] [address] [place] [address] Gerald Ng MD Diabetes (6 month follow up) 11/10/2024 Travel 11/03/2024 Telephone [facility] [address] [place] [address] Gerald Ng MD Questions (Labs) 10/28/2024 Orders Only [facility] Scanner 1 scan: (1-Ord) [facility], 10/28/2024 10/27/2024 Travel 09/16/2024 Refill [facility] [address] [place] [address] Gerald Ng MD Refill Request (Jardiance) 09/12/2024 Transcribe Orders [facility] [place] [phone] Marco Cat MD from Last 3 Months Immunizations Immunization Administration Dates Next Due AMB INFLUENZA IIV3 (AGE 65+ YRS) PF (Flu Clinic Only) 02/21/2017 AMB Influenza, IIV3 (Age >=3 years)(Flu Clinic Only) 04/09/2008 COVID-19 VACCINE SPIKEVAX (M ODERNA 50MCG/0.5ML) 12YO+ PFS 08/14/2024,01/24/2024,07/20/2023 COVID-19 vaccine (Pfizer-Bio NTech 30mcg/0.3mL) 12YO+ ELIZABETH-SUCROSE PF, MDV 07/29/2021 COVID-19 vaccine (Pfizer-Bio NTech 30mcg/0.3mL) PF, MDV 07/03/2020,06/12/2020 Influenza A (H1N1), Inactiva massimo (Age >=3 Years) 04/16/2009 Influenza, High-dose Inactivated 024,01/14/2016,03/17/2015,02/12 Influenza, High-dose Quadriv alent Inactivated 02/15/2023,02/01/2022 Influenza, [...] 0 07/09/2023 Social Connections Answer Date Recorded Do you often feel lonely or isolated from those around you? 0 11/10/2024 Alcohol Use Answer Date Recorded How often do you have a drink containing alcohol ? 0 05/23/2021 Average Number of Drinks Not on file 022 Frequency of Binge Drinking Not on file 05/01 Financial Resource Strain Answer Date R ecorded Difficulty of Paying Living Expenses 3 11/10/2024 Difficulty of Paying Living Expenses Not on file 11/10/2024 Food Insecurity Answer Date Recorded Do you worry your food will run out before you are able to buy more? 1 11/10/2024 Transportation Needs Answer Date Record ed Does lack of transportation keep you from medica l appointments? 1 11/10/2024 Does lack of transportation keep you from work, meetings or getting things that you need? 1 11/10/2024 Housing Stability Answer Date Recorded What is your housing situation today? 1 11/10/2024 Utilities Answer Date Recorded Do you have trouble paying f or utilities (for example, heat, electricity, water, phone)? 1 11/10/2024 Sex and Gender Information Value Date Recorded Sex Assigned at Not on file Legal Sex Male 5:50 AM [employer] Gender Identity Not on file Sexual Orientation Not on file Occupation Industry Job Start Date Job End Date retired Not on file Not on file Not on file Obstetrics History Last Filed Vital Signs Vital Sign Reading Time Taken Comments Blood Pressure 104/67 11/10/2024 9:43 AM CDT Pulse 63 11/10/2024 9:43 AM CDT Temperature 36.6 C (97.9 F) 01/08/2024 9:49 AM CDT Respiratory Rate 30 09/29/2022 12:12 PM CDT Oxygen Saturation 93% 11/10/2024 9:43 AM CDT Inhaled Oxygen Concentration - - Weight 97.8 kg (215 lb 9.6 oz) 11/10/2024 9:43 A M CDT Height 177.6 cm (5' 9.92) 08/24/2023 9:36 AM CD T Body Mass Index 31.01 08/24/2023 9:36 AM CDT Plan of Treatment Upcoming Encounters Date Type Department Care Team (Late st Contact Info) Description 02/09/2025 9:00 AM CDT Appointment [facility] [address] [place] [address] 02/10/2025 9:15 AM CDT Orders Only [facility] [address] [place] [address] [place], [place] 02/13/2025 9:40 AM CDT Office Visit [facility] [address] [place] [address] Gerald Ng MD [address] [place] [address] Health Maintenance Due Date Last Done Comments Depression screening for age 12+ 07/09/2024 07/10/2023, 07/09/2023, 07/06/2022, Additional history exists Medicare Wellness for age 65+ 07/09/2024 07/09/2023, 07/06/2022, 04/28/2021, Additional history exists BMI (ht and wt on same day) for age 18+ 08/23/2024 08/24/2023, 07/09/2023, 07/06/2022, Additional history exists COVID-19 vaccine series ( season) 2024 08/14/2024, 01/24/2024, 07/20/2023, Additional history exists Influenza Vaccine (#1) 2024 , 01/26/2021, 01/27/2020, Additional history exists Tetanus booster 08/31/2031 08/30/2021, 07/2011, 07/29/2002 Zoster (shingles) series for age 50+ Completed 11/13/2017, 08/02/2017, 07/30/2017 Pneumococcal series for age 50+ Completed 07/06/2022, 02/12/2014, 07/29/2002 RSV vaccine for adults or Completed 02/22/2023 Hepatitis B series for 19+ Aged Out N o longer eligible based on patient's age to complete this topic Medical Devices Implanted Type Area Telephone Advice Nurse Device Identifier Shelf Expiration Date Model / Serial / Lot Stent Pancreatic [id number] Advanix Stra No Jil Plst - [id number] Implanted:Qty: 1 on 03/11/2020 by Claude Warner MD at [facility] N/A: Pancreas [facility] Gastroenterology [id number]# / / [id number] Stent Biliary [id number] Advanixduodenal Bend Plst - [id number] Implanted:Qty: 1 on 03/11/2020 by Claude Warner MD at [facility] N/A: Pancreas [facility] Gastroenterology [id number]# / / [id number] Procedures Procedure Name Priority Date/Time Associated Diagnosis Comments PSA TOTAL Routine 11/10/2024 9:39 AM CDT Prostate cancer (HC) BASIC METABOLIC PANEL Routine 11/10/2024 9:27 AM CDT Controlled type 2 diabetes mellitus without complication, without long-term current use of insulin (HC) HEMOGLOBIN A1C MONITORING (POCT) Routine 11/10/2024 9:25 AM CDT Controlled type 2 diabetes mellitus without complication, without long-term current use of insulin (HC) URINE ALBUMIN TO CREATININE RATIO, RANDOM Routine 11/10/2024 9:23 AM CDT Controlled type 2 diabetes mellitus without complication, without long-term current use of insulin (HC) SCAN-EYE EXAM 10/28/2024 12:00 AM CDT from Last 3 Months Results * (ABNORMAL) PSA TOTAL (11/10/2024 9:39 AM CDT) PSA, TOTAL 8.24(H) < OR = 4.00 ng/mL [facility] Comment: The total PSA value from this assay system is standardized against the WHO standard. The test result will be approximately 20% lower when compared to the equimolar-standardized total PSA (Milka Julián). Comparison of serial PSA results should be interpreted with this fact in mind. This test was performed using the Siemens chemiluminescent method. Values obtained from different assay methods cannot be used interchangeably. PSA levels, regardless of value, should not be interpreted as absolute evidence of the presence or absence of disease. Blood BLOOD SPECIMEN / Unknown 11/10/2024 9:39 AM CDT 11/10/2024 9:39 AM CDT us Gerald Ng MD CHEMISTRY Final Result [facility] [address] [place] [address], [place] [phone] [facility] [address] [place] [address] * (ABNORMAL) BASIC METABOLIC PANEL (11/10/2024 9:27 AM CDT) [facility] GLUCOSE 248(H) 65 - 99 mg/dL [facility] Comment: Fasting reference interval For someone without known diabetes, a glucose value >125 mg/dL indicates that they may have diabetes and this should be confirmed with a follow-up test. UREA NITROGEN (BUN) 33(H) 7 - 25 mg/dL [facility] CREATININE 1.61(H) 0.70 - 1.22 mg/dL [facility] EGFR 41(L) > OR = 60 mL/min/1.7 3m2 [facility] BUN/CREATININE RATIO 20 6 - 22 (calc) [facility] SODIUM 136 135 - 146 mmol/L [facility] POTASSIUM 4.1 3.5 - 5.3 mmol/L [facility] CHLORIDE 99 98 - 110 mmol/L [facility] CARBON DIOXIDE 29 20 - 32 mmol/L [facility] ELECTROLYTE BALANCE 8 7 - 17 mmol/L (calc) [facility] CALCIUM 9.4 8.6 - 10.3 mg/dL [facility] Blood BLOOD SPECIMEN / Unknown 11/10/2024 9:27 AM CDT 11/10/2024 9:27 AM CDT us Gerald Ng MD CHEMISTRY Final Result [facility] [address] [place] [address], [facility] [address] [place] [address] * (ABNORMAL) HEMOGLOBIN A1C MONITORING (POCT) (11/10/2024 9:25 AM CDT) [facility] POC HEMOGLOBIN A1C 8.2(H) <6.0 % OF TOTAL HGB [facility] Comment: Any point of care results exhibiting inconsistency with the patient's clinical status should be repeated using a different testing method. Blood BLOOD SPECIMEN / Unknown 11/10/2024 9:25 AM CDT 11/10/2024 9:26 AM CDT Gerald Ng MD CHEMISTRY Final Result Performing Organization Address City/[facility]/ZIP Co de Phone Number [facility] [address] [place] [address], [facility] [address] [place] [address] * URINE ALBUMIN TO CREATININE RATIO, RANDOM (11/10/2024 9:23 AM CDT) Pathologist [facility] ALB RAND URINE 17.4 mg/L 11/10/2024 7:27 PM CDT [facility] CREATININE,URIN E 0.77 g/L 11/10/2024 7:27 PM CDT [facility] ALBUMIN TO CREATININE RATIO,RAND UR 22.6 <30.0 mg/g creat 11/10/2024 7:27 PM CDT [facility] Urine URINE SPECIMEN / Unknown Non-Blood / Unknown 11/10/2024 9:23 AM CDT 11/10/2024 9:23 AM CDT Narrative [facility] - 11/10/2024 7:27 PM CDT If Albumin to Creatinine Ratio is elevated, consider the following: Elevations seen with incipient nephropathy associated with diabetes mellitus or hypertension. Stress, exercise,hematuria, and urinary tract infection may also produce elevated results. If clinically indicated, confirm with 24 Hour Albumin to Creatinine Ratio. us Gerald Ng MD URINE Final Result Performing Organization Address City/[facility]/ZIP Co de Phone Number [facility] [address] [place] [address], [place] * SCAN-EYE EXAM (10/28/2024 12:00 AM CDT) us Scanner OTHER Final Result from Last 3 Months Insurance MEDICARE PART A HB ONLY [facility] HC MEDICARE PPS Advance Directives Documents on File Type Date Recorded Patient Emergency Management Consultant Expl anation Healthcare Directive 03/01/2018 4:41 PM HE ALTHCARE DIRECTIVE, [facility], 04/03/08 Healthcare Directive 04/03/2008 HEALTH CARE DIRECTIVE, [facility], 04/03/08 * Full Code (Latest Code Status [...] Comments Code Status Discussion: Discussed Care Teams Sales Assistant Relationship Specialty Start Date End Date Gerald Ng MD [address] [place] [address] PCP - General 10/12/05
--- OUTSIDE RECORDS SUMMARY | 2024-11-17 22:40 | XMS_ITS | Data Portability ---
[facility] Organization [place] 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 Not available 03/10/2024 13:07:04 09/10/2024 09/10/2024 88 yoM with elevated PSA, family history of inspector conveyor line, and BPH f/u GL PVP Of note a total of 10 minutes was spent: preparing to see the patient by reviewing records, images, and laboratory data; obtaining/revie wing separately obtained history; performing physical examination, counseling and educating patient/family/ caregiver; ordering appropriate medications, labs, imaging or procedures; documenting the clinical encounter; and coordination of care. Not available 09/10/2024 12:09:43 Plan of Treatment Reminders Order Date Submit Date Provider Last Modified By Organization Details Last Modified Time Details Appointments None recorded . Lab PSA, serum or plasma 2023 024 Ronnie Womack [facility] [place] [place], [address], 12:46:29 Referral None recorded . Procedures None recorded . Surgeries None recorded . Imaging MRI, prostate , w/wo contrast - Please schedule on 5. Thank you 2024 025 [email or web address] [facility], [address], [place], [address], 10:35:19 MRI, prostate , w/wo contrast - Patients primary care Gerald Ng requeste d this order be sent to arrange an MRI there in [facility] for 2023, please help patient to schedule for Dec. 2023 024 [email or web address] [facility], [address], [place], [address], 4 09:28:08 Medication Orders tadalafi l 5 mg tablet 2024 025 [facility], [address] [place] [address], [address], 5 14:26:27 ceftriax one 1 gram solution for injectio n 12/22/ 2023 [facility] [address] [place], [address], 4 13:10:48 Cipro 500 mg tablet 2022 [facility] [place], [address] [place], [address], 4 13:11:25 Patient TargetsNo targets recorded. Patient Instructions Encounter Date Encounter Id Patient Instructions Last Modified By Organization Details Last Modified Time 05/09/2023 [id number] I had a very jasen gthy discussion [...] Name Description Value Unit Range Abnormal Flag Note LastModifiedBy Organization Detail LastModifiedTime 10/10/19 24 10/10/2023 PSA, serum or plasm a PSA 10.8ng /mL 0-4.0 NG/mL Not Available [facility] [address], [place], [address], 10/10/2023 12:46:09 02/24/2002/19/2024 MRI, prost ate, w/wo contr ast No observ ation record ed. [facility] [place] [address] [place], [address], 03/10/2024 13:06:26 Result Notes None recorded. Problems Name Problem SNOMED Code Status Onset Date Resolution Date Notes Provider Name and Address Organization Details Recorded Time Slowing of urinary stream 99210407 Active 2011 788.62 : SLOW STREAM Not Available [facility] 0 01:56:26 Prostate specific antigen above reference range 750583717 Active 2011 790.93 : ELEVATED PSA Not Available [facility] 0 01:56:26 Blood in urine 22451437 Active 2011 599.70 : HEMATURIA- UNSPECIFIE D Not Available [facility] 0 01:56:26 Family history of malignant neoplasm 296174830 Active 2011 V16.8 : FAMILY HX OTHER SPEC MALIGNANT NEOPLASM - Notes:FATH ER AND 2 BROTHERS-D IRIS AND JOANNE Not Available [facility] 0 01:56:26 Problem Notes None recorded. Procedures Surgical History Date Name Laterality Status Provider Name and Address Organization Details Recorded Time 10/10/19 24 COMPLEX VISIT completed Marco Cat MD [address] [place] [address], [phone], [facility] 10/10/2023 09:22:53 10/10/19 24 Blood Draw/WASH AND GREASER/PSA RESULTS completed Marco Cat MD [address] [place] [address], [phone], [facility] 10/10/2023 12:45:18 09/11/19 24 total replacement of hip completed Marco Cat MD [address] [place] [address], [phone], [facility] 10/10/2023 12:38:11 04/20/20 23 Prostate Biopsy Procedure completed Johnathan Courtney MD [address] [place] [address],[address], [address], [facility] 04/20/2023 14:55:38 04/20/20 23 Rocepjignesh/Oliverio montalvo completed Elizabeth Pantoja [facility] 04/20/2023 14:24:46 01/04/20 23 WASH AND GREASER/blood draw completed Svetlana Villagomez [facility] 01/03/2023 14:41:15 01/26/20 22 Blood Draw/WASH AND GREASER/PSA RESULTS completed Lolis Patel [facility] 01/25/2022 10:55:09 Imaging Results None recorded. Procedure Notes None recorded. Medical Equipment None Reported. Allergies Allergen ID Allergen Name Allergen Category Reaction Reaction Severity Criticality Documentation Date Start Date Code Code System Note Provider Name and Address Organization Details Recorded Time 321639 aspirin medicatio n Not available Not available Not available 10/16/20192011 1191 RxNorm Elizabeth Pantoja louise, [facility] 3 14:00:05 Medications Name Sig Start Date Stop Date Status Note LastModified by Organization Details LastModified Time losartan 50 mg tablet TAKE 1 TABLET (50 MG) BY MOUTH ONCE DAILY. 09/10 completed Not Available Not Available Not Available carvedilol 6.25 mg tablet TAKE 1 TABLET (6.25 MG) BY MOUTH TWO TIMES DAILY WITH MEALS. active Not Available Not Available No t Available doxycycline hyclate 100 mg capsule TAKE 1 CAPSULE (100 MG) BY MOUTH TWO TIMES DAILY FOR 7 DAYS. 09/10 completed Not Available Not Available Not Available atorvastati n 20 mg tablet TAKE 1 TABLET (20 MG) BY MOUTH ONCE DAILY. active Not Available Not Available No t Available senna 8.6 mg tablet TAKE TWO TABLETS(1 7.2MG) BY MOUTH TWICE A DAY NEEDED FOR CONSTIPAT ION active Not Available Not Available No t Available glipizide ER 10 mg tablet, extended release 24 hr TAKE 1 TABLET (10 MG) BY MOUTH TWO TIMES DAILY BEFORE MEALS. active Not Available Not Available No [...] completed Not Available Not Available Not Available acetaminoph en 500 mg tablet TAKE TWO TABLETS(1 000MG) BY MOUTH EVERY 6 HOURS NEEDED FOR PAIN, MAX DAILY DOSE: 3000MG PER DAY active Not Available Not Available No t Available triamcinolo ne acetonide 0.1 % topical cream APPLY TO AFFECTED AREA(S) TWICE A DAY NOT TO EXCEED 14 DAYS PER EPISODE active Not Available Not Available No t Available ceftriaxone 1 gram solution for injection Take 1 g by injection route. 05/09 completed Not Available Not Available Not Available tamsulosin 0.4 mg capsule TAKE 1 CAPSULE (0.4 MG) BY MOUTH ONCE DAILY AFTER A MEAL. 09/10 completed Not Available Not Available Not Available benzonatate 100 mg capsule TAKE 1 CAPSULE (100 MG) BY MOUTH 3 TIMES DAILY IF NEEDED FOR COUGH. 05/09 completed Not Available Not Available Not Available glipizide ER 2.5 mg tablet, extended release 24 hr TAKE 3 TABLETS (7.5MG) BY MOUTH ONCE DAILY BEFORE A MEAL 10/09 completed Not Available Not Available Not Available cephalexin 500 mg capsule TAKE ONE CAPSULE BY MOUTH THREE TIMES DAILY 09/10 completed Not Available Not Available Not Available losartan 25 mg tablet TAKE 1 TABLET (25 MG) BY MOUTH ONCE DAILY. active Not Available Not Available No t Available nitroglycer in 0.[address] 1 TABLET (0.4 MG) UNDER THE TONGUE EVERY 5 MINUTES IF NEEDED FOR CHEST PAIN. active Not Available Not Available No t Available gabapentin 300 mg capsule TAKE 2 CAPSULES (600 MG) BY MOUTH AT BEDTIME. active Not Available Not Available No t Available triamterene 37.5 mg-hydrochl orothiazide 25 mg tablet TAKE 1 TABLET BY MOUTH ONCE DAILY IN THE MORNING. active Not Available Not Available No t Available omeprazole 20 mg capsule,del ayed release TAKE 1 CAPSULE (20 MG) BY MOUTH TWO TIMES DAILY BEFORE MEALS. active Not Available Not Available No t Available mupirocin 2 % topical ointment APPLY UNDER FINGERNAI LS AND IN NARES TWICE DAILY FOR ONE WEEK BEFORE SURGERY. 10/09 completed Not Available Not Available Not Available gabapentin 100 mg capsule TAKE ONE CAPSULE BY MOUTH AT BEDTIME, INCREASE BY 1 CAPSULE WEEKLY TO MAX OF 3 CAPSULES AT BEDTIME 10/09 completed Not Available Not Available Not Available cefuroxime axetil 500 mg tablet TAKE [...] Not Available Not Available No t Available oxycodone 5 mg tablet TAKE 1/2-1 TABLET(2. 5-5MG) BY MOUTH EVERY 4-6 HOURS NEEDED FOR PAIN, MAX DAILY DOSE: 6 TABS PER DAY; MINIMIZE. DISCONTIN UE SOON POSSIBLE 09/10 completed Not Available Not Available Not Available tadalafil 5 mg tablet TAKE 1 TABLET BY MOUTH EVERY DAY active Not Available Not Available No t Available Antiseptic Skin Cleanser (chlorhexid ine) 4 % liquid APPLY NECK DOWN TO TOES AND SHOWER-OF F DAILY FOR ONE WEEK BEFORE SURGERY. 10/09 completed Not Available Not Available Not Available Xarelto 10 mg tablet TAKE ONE TABLET(10 MG) BY MOUTH DAILY FOR DVT PROPHYLAX IS; FOR 34 DAYS, THEN RESUME PLAVIX active Not Available Not Available No t Available rivaroxaban 10/09 completed Not Available Not Available Not Available Accu-Chek Judie Plus test strips TEST [...] Available Not Available Vitals Date Recorded Body height Body mass index (BMI) Body weight Provider Name and Address Organization Details Last Updated DateTime 05/09/2023 177.8 cm 31.6 kg/m2 07111.32 g Lolis Patel [place] [facility] 05/09/2023 13:11:12 Date Recorded Body height Body mass index (BMI) Body weight Provider Name and Address Organization Details Last Updated DateTime 09/10/2024 177.8 cm 29.8 kg/m2 79354.21 g Lolis Floyd [facility] 09/10/2024 11:46:05 Date Recorded Body height Body mass index (BMI) Body weight Provider Name and Address Organization Details Last Updated DateTime 10/10/2023 177.8 cm 29.8 kg/m2 06623.21 g Marco Cat MD [address] [place] [address],[place] [phone] [place] [address] [facility] 10/10/2023 12:38:42 Date Recorded Body height Body mass index (BMI) Body weight Provider Name and Address Organization Details Last Updated DateTime 04/20/2023 177.8 cm 31.6 kg/m2 17769.32 g Elizabeth Lizarragasammie [facility] 04/20/2023 13:59:58 Social History Question Answer Notes LastModified by Organizat ion Details LastModified Time Tobacco Smoking Status Never Smoker Marco Cat MD [address] [place] [address],[place] [phone] [place] [address] [facility] 01/25/2022 10:45:28 What Is Your Level Of Caffeine Consumption? Occasional Information not available 10/10/2023 What Was The Date Of Your Most Recent Tobacco Screening? 09/10/2024 [email or web address] Information not available 09/10/2024 Has Tobacco Cessation Counseling Been Provided? No [email or web address] Information not available 09/10/2024 Sex: Unknown Functional Status Question Answer Note LastModified by Organization D etails LastModified Time Do you or have you ever used any other forms of tobacco or nicotine? No Information not available 09/10/2024 What is your level of alcohol consumption? None Information not available 10/10/2023 Mental Status None recorded. Family History Relationship Description Onset Age of this Age Resolved Age Notes LastModified by Organization Details LastModified Time Brother Family history of malignant neoplasm of prostate Not available 2021 10:45:18 Medical History Condition Response Sexually Transmitted Infection N Diabetes Y Other N Bleeding Disorder N High Blood Pressure Y Kidney Stones N High Cholesterol Y GERD/Acid Reflux N Heart Disease N Cancer N Depression N Lung Disease N Immunizations Vaccine Type Date Status Note Provider Nam e and Address Organization Details Recorded Time COVID-19, mRNA, LNP-S, bivalent, PF, 30 mcg/0.3 mL dose 3 completed Lolis gil, [facility] 05/09/2023 13:11:17 COVID-19, mRNA, LNP-S, PF, mohan-sucrose, 30 mcg/0.3 mL 3 completed Not Available [facility] 09/10/2024 11:46:25 Influenza, high-dose, quadrivalent, PF 3 completed Not Available [facility] 09/10/2024 11:46:25 RSV, recombinant, protein subunit RSVpreF, adjuvant reconstituted, 0.5 mL, PF 3 completed Not Available [facility] 09/10/2024 11:46:25 COVID-19, mRNA, LNP-S, PF, 50 mcg/0.5 mL 4 completed Not Available [facility] 09/10/2024 11:46:25 COVID-19, mRNA, LNP-S, PF, 50 mcg/0.5 mL 4 completed Not Available [facility] 09/10/2024 11:46:25 Influenza, high-dose, trivalent, PF 4 completed Not Available [facility] 09/10/2024 11:46:25 COVID-19, mRNA, LNP-S, PF, 50 mcg/0.5 mL 5 completed Not Available [facility] 09/10/2024 11:46:25 Influenza, adjuvanted, trivalent, PF 7 completed Svetlana gil, [facility] 01/03/2023 14:39:19 Influenza, adjuvanted, trivalent, PF 8 completed Svetlana gil, [facility] 01/03/2023 14:39:19 Influenza, adjuvanted, trivalent, PF 9 completed Svetlana gil, [facility] 01/03/2023 14:39:19 zoster recombinant 8 completed Svetlana Villagomez null, [facility] 01/03/2023 14:39:19 zoster recombinant 8 completed [facility] 01/03/[facility] 14:39:19 zoster recombinant 8 completed Svetlana Yumikoauer null, [facility] 01/03/2023 14:39:19 Influenza, high-dose, quadrivalent, PF 2 completed Svetlana Calderonauer null, [facility] 01/03/2023 14:39:19 Influenza, adjuvanted, quadrivalent, PF 0 completed Svetlana Yumikoauer null, [facility] 01/03/2023 14:39:19 Influenza, adjuvanted, quadrivalent, PF 1 completed Svetlana Hernando null, [facility] 01/03/2023 14:39:19 COVID-19, mRNA, LNP-S, PF, 30 mcg/0.3 mL dose 1 completed Svetlana Villagomez null, [facility] 01/03/2023 14:39:19 COVID-19, mRNA, LNP-S, PF, 30 mcg/0.3 mL dose 1 completed Svetlana Villagomez null, [facility] 01/03/2023 14:39:19 COVID-19, mRNA, LNP-S, PF, 30 mcg/0.3 mL dose 1 completed Svetlana Villagomez null, [facility] 01/03/2023 14:39:19 Pneumococcal conjugate PCV20, polysaccharide [id number] conjugate, adjuvant, PF 3 completed Svetlana Calderonauer null, [facility] 01/03/2023 14:39:19 COVID-19, mRNA, LNP-S, PF, 30 mcg/0.3 mL dose, mohan-sucrose 2 [facility] 14:39:19 COVID-19, mRNA, LNP-S, bivalent, PF, 30 mcg/0.3 mL dose 2 completed [facility]23 14:39:19 pneumococcal polysaccharide PPV23 3 completed Svetlana Wardrbauer null, [facility] 01/03/2023 14:39:19 Tdap 2 completed Svetlana Wardmirlandeauer null, [facility] 01/03/2023 14:39:19 Tdap 2 completed Svetlana Wardmirlandeauer null, [facility] 01/03/2023 14:39:19 Novel [id number], all formulations 9 completed Svetlana Wardmirlandeauer null, [facility] 01/03/2023 14:39:19 Pneumococcal conjugate PCV 13 4 completed Svetlana Wardmirlandeauer null, [facility] 01/03/2023 14:39:19 Influenza, high-dose, trivalent, PF 6 completed Svetlana Wardmirlandeauer null, [facility] 01/03/2023 14:39:19 Influenza, high-dose, trivalent, PF 4 completed Svetlana Wardmirlandeauer null, [facility] 01/03/2023 14:39:19 Influenza, high-dose, trivalent, PF 5 completed Svetlana Wardmirlandeauer null, [facility] 01/03/2023 14:39:19 Influenza, split virus, trivalent, preservative 9 completed Svetlana Wardmirlandeauer null, [facility] 01/03/2023 14:39:19 Influenza, split virus, trivalent, preservative 0 completed Svetlana Wardrbauer null, [facility] 01/03/2023 14:39:19 Influenza, split virus, trivalent, preservative 2 completed Svetlana Wardmirlandeauer null, [facility] 01/03/2023 14:39:19 Influenza, split virus, trivalent, preservative 3 completed Svetlana Wardmirlandeauer null, [facility] 01/03/2023 14:39:19 Influenza, split virus, trivalent, preservative 7 completed MICHAEL Liu [facility] 01/03/2023 14:39:19 Influenza, split virus, trivalent, preservative 6 completed MICHAEL Liu [facility] 01/03/2023 14:39:19 Influenza, split virus, trivalent, preservative 8 completed MICHAEL Liu [facility] 01/03/2023 14:39:19 Influenza, split virus, trivalent, preservative 5 [facility] 14:39:19 Td (adult), 2 Lf tetanus toxoid, preservative free, adsorbed 3 completed MICHAEL Liu [facility] 01/03/2023 14:39:19 Past Encounters Encounter ID Performer Location Encounter Start Date Encounter Closed Date Diagnosis/Indication Diagnosis SNOMED-CT Code Diagnosis ICD10 Code Diagnosis Note [id number] Marco Cat MD [facility] [address] [place] [address] 01/25/2022 10:22:18 01/27/2022 12:38:09 Prostate specific antigen above reference range 539310594 R97.20 - We discussed the significan ce of an elevated PSA and its utility in screening for prostate cancer. We discussed that while the PSA may be elevated in some men due to benign causes such as trauma, recent sexual intercours e, urinary tract infections , or recent instrument ation, it may also be indicative of underlying prostate cancer. We discussed that a PSA test alone is not sufficient to determine if prostate cancer is present and further testing is warranted. - Given the recent change in his PSA I would recommend we first repeat his PSA while controllin g for potential confoundin g variables to confirm the elevation. - We then discussed the available options for further evaluation s.(1) One option would be to proceed with transrecta l ultrasound with prostate needle biopsy. This allows for sampling of the prostate in areas where cancer is likely to be found. This will allow for detection of underlying prostate cancer if it is present. We discussed the limitation s of this including under sampling which may lead to under diagnosis. We also discussed the risks most notably bleeding to a degree enough to require interventi on (1-2.5%) and infection which may result in hospitaliz ation (1-3%). We also discussed expected after effects of biopsy including temporary hematuria, blood per rectum, and hematosper becky which are considered normal after this procedure. (2) A second option we discussed would be to proceed first with an MRI of the prostate. This would allow for detection of underlying lesions of the prostate which are suspicious for cancer. This informatio n could then be utilized for ultrasound -MRI fusion biopsies which may result in improved detection of underlying prostate cancer and also facilitate jail surveillan ce for men in which low risk prostate cancers are identified .(3) We then discussed the role of adjunctive testing in the form (4k score or ExoDx) to help better inform risk profile. While this does not tell a man whether he has prostate cancer this may be helpful in making a decision about whether to proceed with a prostate biopsy. -At this point patient would like to proceed with continuing PSA monitoring 6 to 12-month intervals. He is perfectly okay to complete this with his primary care provider. As neither myself nor Dr. Courtney are going down to [place] if you would like to follow-up with me via telephone, that would be fine. Family his tory of malignant neoplasm of prostate [id number] Z80.42 - As above Lower urin krystle tract symptoms due to benign prostatic hypertrophy [id number] 9101 N40.1 - Underwent Greenlight PVP with Dr. Lindo , doing ok. [id number] Marco Cat MD [facility] [address] [place] [address] 07/13/2022 14:23:17 07/14/2022 16:05:40 Prostate specific antigen above reference range 823590320 R97.20 - We discussed the significan ce of an elevated PSA and its utility in screening for prostate cancer. We discussed that while the PSA may be elevated in some men due to benign causes such as trauma, recent sexual intercours e, urinary tract infections , or recent instrument ation, it may also be indicative of underlying prostate cancer. We discussed that a PSA test alone is not sufficient to determine if prostate cancer is present and further testing is warranted. - Given the recent change in his PSA I would recommend we first repeat his PSA while controllin g for potential confoundin g variables to confirm the elevation. - We then discussed the available options for further evaluation s.(1) One option would be to proceed with transrecta l ultrasound with prostate needle biopsy. This allows for sampling of the prostate in areas where cancer is likely to be found. This will allow for detection of underlying prostate cancer if it is present. We discussed the limitation s of this including under sampling which may lead to under diagnosis. We also discussed the risks most notably bleeding to a degree enough to require interventi on (1-2.5%) and infection which may result in hospitaliz ation (1-3%). We also discussed expected after effects of biopsy including temporary hematuria, blood per rectum, and hematosper becky which are considered normal after this procedure. (2) A second option we discussed would be to proceed first with an MRI of the prostate. This would allow for detection of underlying lesions of the prostate which are suspicious for cancer. This informatio n could then be utilized for ultrasound -MRI fusion biopsies which may result in improved detection of underlying prostate cancer and also facilitate jail surveillan ce for men in which low risk prostate cancers are identified .(3) We then discussed the role of adjunctive testing in the form (4k score or ExoDx) to help better inform risk profile. While this does not tell a man whether he has prostate cancer this may be helpful in making a decision about whether to proceed with a prostate biopsy. -At this point patient would like to proceed with continuing PSA monitoring 6 to 12-month intervals. He is perfectly okay to complete this with his primary care provider. Family his tory of malignant neoplasm of prostate [id number] Z80.42 - As above Lower urin krystle tract symptoms due to benign prostatic hypertrophy [id number] 9101 N40.1 - Underwent Greenlight PVP with Dr. Lindo , doing ok. [id number] Marco Cat MD [facility] [address] [place] [address] 01/03/2023 14:28:35 01/08/2023 15:50:11 Prostate specific antigen above reference range [id number] R97.20 - Previous negative biopsies-P SA today up to 10.7 ng/mL. We will confirm this with a repeat PSA in [facility] 1 week (this can be completed [place] ) should the elevation be confirmed we will proceed with an MRI of his prostate and subsequent biopsy. If PSA back down we will plan to continue every 6 month screening. Family his tory of malignant neoplasm of prostate [id number] Z80.42 - As above Lower urin krystle tract symptoms due to benign prostatic hypertrophy [id number] 9101 N40.1 - Underwent Greenlight PVP with Dr. Lindo , doing ok. [id number] Johnathan Courtney MD [facility] [address] [place] [address] 04/20/2023 12:33:49 05/04/2023 10:48:46 Prostate specific antigen above reference range [id number] R97.20 1. Elevated PSA- + Family Hx of Prostate cancer - twin brother- 3 negative prostate biopsies- PSA (8.26)- Prostate MRI (01/23/23) - 84 mL - Lesion 1 - (PI-RADS 4) - 1.4 x 0.8 cm - Right anterior apex (TZ) - 11 o'clock- s/p UroNav bx of prostate today- can restart Plavix in 2-3 days- complete course of Cipro 500 mg BID x 3 days(patie nt would like his son - Jerson Deras ) notified of the results as well (ID doctor) Family his tory of malignant neoplasm of prostate [id number] Z80.42 - As above Lower urin krystle tract symptoms due to benign prostatic hypertrophy [id number] 9101 N40.1 - Underwent Greenlight PVP with Dr. Lindo , doing ok. [id number] Marco Cat MD [address] [place] [address] 05/09/2023 13:09:43 05/16/2023 13:19:08 Prostate specific antigen above reference range [id number] R97.20 - Previous negative biopsies- PSA 10.7 ng/mL.- biopsy with Hyampom 3+3 inspector conveyor line in the target biopsy- Recommend active surveillan ce and patient agrees.- Follow up 6 months with PSA Family his tory of malignant neoplasm of prostate [id number] Z80.42 - As above Lower urin krystle tract symptoms due to benign prostatic hypertrophy [id number] 9101 N40.1 - Underwent Greenlight PVP with Dr. Lindo , doing ok. Malignant neoplasm of prostate [id number] C61 - See discussion below [id number] Marco Cat MD [address] [place] [address] 10/10/2023 11:55:45 10/11/2023 09:11:01 Prostate specific antigen above reference range [id number] R97.20 - Previous negative biopsies- PSA 10.7 ng/mL --> 10.8 ng/mL- biopsy with Otilio 3+3 inspector conveyor line in the target biopsy- MRI: 84 cc, PIRADS 4 lesion in right anteriolat eral TZ. Repeat MRI 12/2023- Continue active surveillan ce and patient agrees.- Follow up 6 months with PSA Family his tory of malignant neoplasm of prostate [id number] Z80.42 - As above Lower urin krystle tract symptoms due to benign prostatic hypertrophy [id number] 9101 N40.1 - Underwent Greenlight PVP with Dr. Lindo , doing ok. Malignant neoplasm of prostate [id number] C61 - See discussion below [id number] Marco Cat MD [address] [place] [address] 03/10/2024 11:54:37 03/11/2024 14:52:24 Prostate specific antigen above reference range [id number] R97.20 - Previous negative biopsies- PSA 10.7 ng/mL --> 10.8 ng/mL- biopsy with Hyampom 3+3 inspector conveyor line in the target biopsy (2018)- MRI: 84 cc, PIRADS 4 lesion in right anteriolat eral TZ. Repeat MRI with similar findings- Continue active surveillan ce and patient agrees.- Will get a PSA with his annual visit with Dr. Ng in April.- Follow up 6 months with PSA Family his tory of malignant neoplasm of prostate [id number] Z80.42 - As above Lower urin krystle tract symptoms due to benign prostatic hypertrophy [id number] 9101 N40.1 - Underwent Greenlight PVP with Dr. Lindo , doing ok. Malignant neoplasm of prostate [id number] C61 - See discussion below [id number] Marco Cat MD [facility] [employer] [place] [address] 09/10/2024 11:45:16 09/18/2024 09:06:42 Prostate specific antigen above reference range [id number] R97.20 - Previous negative biopsies- PSA 10.7 ng/mL --> 10.8 ng/mL- biopsy with Hyampom 3+3 inspector conveyor line in the target biopsy (2018)- MRI: 84 cc, PIRADS 4 lesion in right anteriolat eral TZ. Repeat MRI with similar findings- Continue active surveillan ce and patient agrees.- Will get a PSA with his annual visit with Dr. Ng in April.- Follow up 6 months with PSA Family his tory of malignant neoplasm of prostate [id number] Z80.42 - As above Lower urin krystle tract symptoms due to benign prostatic hypertrophy [id number] 9101 N40.1 - Underwent Greenlight PVP with Dr. Lindo , doing ok.- Tried tamsulosin which helped significan tly but not tolerated. Looking for an alternativ e. Will trial tadalafil. Malignant neoplasm of prostate [id number] C61 - See discussion below Health Concerns Section Related Observation LastModified by Organization Detai ls LastModified Time None Recorded Concern Status LastModified by Organization Details LastModified Time None Recorded Advance Directives Directive None Recorded Payers Insurance Date Sequence Insurance Name Policy Number Policy Modi Covered Member ID Modi Member ID Guarantor Name 09/18/2024 1 [facility] (MEDICARE REPLACEMENT/A DVANTAGE - PPO) [id number] Chaitanya Deras [id number] Chaitanya Deras 03/10/2024 1 [facility] (MEDICARE SUPPLEMENT) [id number] Chaitanya Deras [id number] Chaitanya Deras 03/10/2024 1 MEDIC[place]: [employer] Chaitanya Deras [id number] Chaitanya Deras Notes Date Note Type Note Provider Name and Address Organization Details Recorded Time 04/20/2023 text/html 87 yoM who follo ws with Dr. Cat for elevated PSA. Patient has undergone three negative prostate biopsies. He had a Green-light TURP (02/24/13) by Dr. Lindo. He has twin brothers with prostate cancer. He has had 2 negative TRUS bx - (June 2007 - [place] and 03/06/12 - Guicho - 81.5 gm). His PSA has fluctuated over several years. He tried Ditropan in the past - caused constipation.UroNav bx (01/18/18) - 65.3 gm - high grade PIN (lesion) - no cancer05/23/21 - He presents for follow-up on PSA. He had a cardiac stent placed in June 2019. He voids every 2-3 hours during the day and 2-3x/night. He still has a slow stream - denies hesitancy or dysuria. 04/20/23 - He presents for UroNav bx for elevated PSA and PI-RADS 4 lesion at Right anterior apex. PSA - 3.31 (10/24/05) - 5.61 (08/07/18)- 6.25 (04/12/07) - 6.28 (02/05/19)- 6.34 (01/24/10) - 5.52 (05/21/19)- 4.36 (08/03/10) - 6.36 (09/1019)- 7.76 (01/25/12) - 7.60 (04/07/20)- 7.51 (08/02/12) - 7.14 (07/12/20)- 4.03 (12/15/13) - 7.79 (01/10/21)- 5.56 (12/04/14) - 6.57 (05/05/21)- 4.06 (01/05/16) - 7.7 (06/29/2022)- 5.79 (02/21/17) - 8.5 (01/25/22)- 7.07 (08/14/17) - 10.7 (01/03/23)- 7.12 (11/07/17) - 8.26 (01/12/23)Prostate MRI (11/20/17) - 67 gm- Lesion #1 - (PI-RADS - 4) - Left apex - 1.1 cm x 0.9 cm - 0.8 cm left of mid-line at apexProstate MRI (04/21/20) - 73 gm - no suspicious lesions Prostate MRI (01/23/23) - 84 mL- Lesion 1 - (PI-RADS 4) - 1.4 x 0.8 cm - Right anterior apex (TZ) - 11 o'clock Johnathan Courtney MD [address] [facility] [facility],[address], [place], [address], [place] [facility] 04/20/2023 14:58:36 05/09/2023 text/html Mr. Deras is a n 87 yoM who follows with my partner, Dr. Courtney regarding elevated PSA. Patient has undergone three negative prostate biopsies. He had a Green-light TURP (02/24/13) by Dr. Lindo. He has twin brothers with prostate cancer. He has had 2 negative TRUS bx - (June 2007 - [place] and 03/06/12 - Guicho - 81.5 gm). His PSA has fluctuated over several years. He tried Ditropan in the past - caused constipation.UroNav bx (01/18/18) - 65.3 gm - high grade PIN (lesion) - no cancer05/23/21 - He presents for follow-up on PSA. He had a cardiac stent placed in June 2019. He voids every 2-3 hours during the day and 2-3x/night. He still has a slow stream - denies hesitancy or dysuria.PSA - 3.31 (10/24/05) - 5.61 (08/07/18)- 6.25 (04/12/07) - 6.28 (02/05/19)- 6.34 (01/24/10) - 5.52 (05/21/19)- 4.36 (08/03/10) - 6.36 (09/1019)- 7.76 (01/25/12) - 7.60 (04/07/20)- 7.51 (08/02/12) - 7.14 (07/12/20)- 4.03 (12/15/13) - 7.79 (01/10/21)- 5.56 (12/04/14) - 6.57 (05/05/21)- 4.06 (01/05/16) - 7.7 (06/29/2022)- 5.79 (02/21/17)- 7.07 (08/14/17)- 7.12 (11/07/17)Prostate MRI (11/20/17) - 67 gm- Lesion #1 - (PI-RADS - 4) - Left apex - 1.1 cm x 0.9 cm - 0.8 cm left of mid-line at apexProstate MRI (04/21/20) - 73 gm - no suspicious lesions 01/25/2022:Here for follow up elevated PSA, family history of prostate cancer, and BPH s/p GL PVP. Previous PSA 8.08 ng/mL. PSA today is 8.5 Seen today with his who provides some of the history. 07/13/2022:Here for follow up elevated PSA, family history of prostate cancer, and BPH s/p GL PVP. Most recent PSA 7.7 ng/mL 01/03/2023:Here for follow up elevated PSA, family history of prostate cancer, and BPH s/p GL PVP. PSA today 10.7 ng/mL 05/09/2023:Here for follow up elevated PSA, family history of prostate cancer, and BPH s/p GL PVP. He completed a UroNav biopsy with Dr. Courtney which showed 1 core of Hyampom 3+3 prostate cancer in the target biopsy [...] coordinate their care. Marco Cat MD [address] [facility] [facility],[address], [place], [address], [facility] 05/09/2023 22:20:56 10/10/2023 text/html Mr. Deras is a n 87 yoM who follows with my partner, Dr. Courtney regarding elevated PSA. Patient has undergone three negative prostate biopsies. He had a Green-light TURP (02/24/13) by Dr. Lindo. He has twin brothers with prostate cancer. He has had 2 negative TRUS bx - (June 2007 - [place] and 03/06/12 - Guicho - 81.5 gm). His PSA has fluctuated over several years. He tried Ditropan in the past - caused constipation.UroNav bx (01/18/18) - 65.3 gm - high grade PIN (lesion) - no cancer05/23/21 - He presents for follow-up on PSA. He had a cardiac stent placed in June 2019. He voids every 2-3 hours during the day and 2-3x/night. He still has a slow stream - denies hesitancy or dysuria.PSA - 3.31 (10/24/05) - 5.61 (08/07/18)- 6.25 (04/12/07) - 6.28 (02/05/19)- 6.34 (01/24/10) - 5.52 (05/21/19)- 4.36 (08/03/10) - 6.36 (09/1019)- 7.76 (01/25/12) - 7.60 (04/07/20)- 7.51 (08/02/12) - 7.14 (07/12/20)- 4.03 (12/15/13) - 7.79 (01/10/21)- 5.56 (12/04/14) - 6.57 (05/05/21)- 4.06 (01/05/16) - 7.7 (06/29/2022)- 5.79 (02/21/17) - 10.8 (10/10/23)- 7.07 (08/14/17)- 7.12 (11/07/17) Prostate MRI (11/20/17) - 67 gm- Lesion #1 - (PI-RADS - 4) - Left apex - 1.1 cm x 0.9 cm - 0.8 cm left of mid-line at apexProstate MRI (04/21/20) - 73 gm - no suspicious lesions 01/25/2022:Here for follow up elevated PSA, family history of prostate cancer, and BPH s/p GL PVP. Previous PSA 8.08 ng/mL. PSA today is 8.5 ng/mL Seen today with his who provides some of the history. 07/13/2022:Here for follow up elevated PSA, family history of prostate cancer, and BPH s/p GL PVP. Most recent PSA 7.7 ng/mL 01/03/2023:Here for follow up elevated PSA, family history of prostate cancer, and BPH s/p GL PVP. PSA today 10.7 ng/mL 05/09/2023:Here for follow up elevated PSA, family history of prostate cancer, and BPH s/p GL PVP. He completed a UroNav biopsy with Dr. Courtney which showed 1 core of Hyampom 3+3 prostate cancer in the target biopsy only. No adverse effects from the biopsy. We are joined on the phone by his . 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 PSA today 10.8 ng/mL (8.69 ng/mL 07/09/23) Seen again today with his who provides some of the history. Marco Cat MD [address] [place] [address],[address], [address], [facility] - [facility] 10/10/2023 13:21:52 03/10/2024 text/html Mr. Deras is a n 88 yoM who follows with my partner, Dr. Courtney regarding elevated PSA. Patient has undergone three negative prostate biopsies. He had a Green-light TURP (02/24/13) by Dr. Lindo. He has twin brothers with prostate cancer. He has had 2 negative TRUS bx - (June 2007 - [place] and 03/06/12 - Guicho - 81.5 gm). His PSA has fluctuated over several years. He tried Ditropan in the past - caused constipation.UroNav bx (01/18/18) - 65.3 gm - high grade PIN (lesion) - no cancer1/24/22 - He presents for follow-up on PSA. He had a cardiac stent placed in June 2019. He voids every 2-3 hours during the day and 2-3x/night. He still has a slow stream - denies hesitancy or dysuria.PSA - 3.31 (10/24/05) - 5.61 (08/07/18)- 6.25 (04/12/07) - 6.28 (02/05/19)- 6.34 (01/24/10) - 5.52 (05/21/19)- 4.36 (08/03/10) - 6.36 (09/1019)- 7.76 (01/25/12) - 7.60 (04/07/20)- 7.51 (08/02/12) - 7.14 (07/12/20)- 4.03 (12/15/13) - 7.79 (01/10/21)- 5.56 (12/04/14) - 6.57 (05/05/21)- 4.06 (01/05/16) - 7.7 (06/29/2022)- 5.79 (02/21/17) - 10.8 (10/10/23)- 7.07 (08/14/17)- 7.12 (11/07/17) Prostate MRI (11/20/17) - 67 gm- Lesion #1 - (PI-RADS - 4) - Left apex - 1.1 cm x 0.9 cm - 0.8 cm left of mid-line at apexProstate MRI (04/21/20) - 73 gm - no suspicious lesions 01/25/2022:Here for follow up elevated PSA, family history of prostate cancer, and BPH s/p GL PVP. Previous PSA 8.08 ng/mL. PSA today is 8.5 ng/mL Seen today with his who provides some of the history. 07/13/2022:Here for follow up elevated PSA, family history of prostate cancer, and BPH s/p GL PVP. Most recent PSA 7.7 ng/mL 01/03/2023:Here for follow up elevated PSA, family history of prostate cancer, and BPH s/p GL PVP. PSA today 10.7 ng/mL 05/09/2023:Here for follow up elevated PSA, family history of prostate cancer, and BPH s/p GL PVP. He completed a UroNav biopsy with Dr. Courtney which showed 1 core of Hyampom 3+3 prostate cancer in the target biopsy only. No adverse effects from the biopsy. We are joined on the phone by his . 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 PSA today 10.8 ng/mL (8.69 ng/mL 07/09/23) Seen again today with his who provides some of the history. 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 Surveillance MRI with similar appear PIRADS 4 lesion. No significant change from previous image. We are joined today by his who provides some of the history. Prior to conducting our telephone visit, the [...] and coordinate their care. Marco Cat MD [address] [place] [address],[address], [place], [address], [facility] 03/10/2024 13:09:01 09/10/2024 text/html Mr. Deras is a n 88 yoM who follows with my partner, Dr. Courtney regarding elevated PSA. Patient has undergone three negative prostate biopsies. He had a Green-light TURP (02/24/13) by Dr. Lindo. He has twin brothers with prostate cancer. He has had 2 negative TRUS bx - (June 2007 - and 03/06/12 - [place] - 81.5 gm). His PSA has fluctuated over several years. He tried Ditropan in the past - caused constipation.UroNav bx (01/18/18) - 65.3 gm - high grade PIN (lesion) - no cancer05/23/21 - He presents for follow-up on PSA. He had a cardiac stent placed in June 2019. He voids every 2-3 hours during the day and 2-3x/night. He still has a slow stream - denies hesitancy or dysuria.PSA - 3.31 (10/24/05) - 5.61 (08/07/18)- 6.25 (04/12/07) - 6.28 (02/05/19)- 6.34 (01/24/10) - 5.52 (05/21/19)- 4.36 (08/03/10) - 6.36 (09/1019)- 7.76 (01/25/12) - 7.60 (04/07/20)- 7.51 (08/02/12) - 7.14 (07/12/20)- 4.03 (12/15/13) - 7.79 (01/10/21)- 5.56 (12/04/14) - 6.57 (05/05/21)- 4.06 (01/05/16) - 7.7 (06/29/2022)- 5.79 (02/21/17) - 10.8 (10/10/23)- 7.07 (08/14/17)- 7.12 (11/07/17) Prostate MRI (11/20/17) - 67 gm- Lesion #1 - (PI-RADS - 4) - Left apex - 1.1 cm x 0.9 cm - 0.8 cm left of mid-line at apexProstate MRI (04/21/20) - 73 gm - no suspicious lesions 01/25/2022:Here for follow up elevated PSA, family history of prostate cancer, and BPH s/p GL PVP. Previous PSA 8.08 ng/mL. PSA today is 8.5 ng/mL Seen today with his who provides some of the history. 07/13/2022:Here for follow up elevated PSA, family history of prostate cancer, and BPH s/p GL PVP. Most recent PSA 7.7 ng/mL 01/03/2023:Here for follow up elevated PSA, family history of prostate cancer, and BPH s/p GL PVP. PSA today 10.7 ng/mL 05/09/2023:Here for follow up elevated PSA, family history of prostate cancer, and BPH s/p GL PVP. He completed a UroNav biopsy with Dr. Courtney which showed 1 core of Otilio 3+3 prostate cancer in the target biopsy only. No adverse effects from the biopsy. We are joined on the phone by his . 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 PSA today 10.8 ng/mL (8.69 ng/mL 07/09/23) Seen again today with his who provides some of the history. 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 Surveillance MRI with similar appear PIRADS 4 lesion. No significant change from previous image. We are joined today by his who provides some of the history. 09/10/2024:To discuss follow up elevated PSA, family history of prostate cancer, BPH s/p GL PVP, and Very Low risk prostate cancer. Recent PSA 7.87 ng/mL Current patient location: [place] Current MD/KATEY location: [place] HIPAA compliant platform used: Yes Prior to conducting our telephone visit, the [...] and coordinate their care. Marco Cat MD [address] [facility] [facility],[address], [place], [address], [facility] 09/10/2024 12:10:04
[2024-11-17 22:55] VITALS: BP 149/81; PULSE 60; RESP 18; TEMP 36.7; O2SAT 95; BMI 27.7
--- NOTE | 2024-11-17 23:05 | CRLHL7_ITS ---
For Patients: As a result of the Century Cures Act, medical imaging exams and procedure reports are released immediately into your electronic medical record. You may view this report before your referring provider. If you have questions, please contact your health care provider. INDICATION: Chest pain. TECHNIQUE: Chest radiograph, 1 view. COMPARISON: CT chest 04/18/2021. FINDINGS: Cardiovascular/Mediastinum: Normal heart size. Unremarkable. Lungs: No focal consolidation. Linear bandlike opacification in the lungs bilaterally, likely subsegmental atelectasis and/or scarring. Airways: Trachea remains midline. Pleura: No pleural effusions or pneumothorax. Bones: No acute osseous abnormalities. Upper abdomen: Unremarkable. IMPRESSION: No acute cardiopulmonary process. Dictated by Axel Dan MD @ 11/17/2024 11:50:53 PM (Electronically Signed)
[2024-11-17 23:06] VITALS: BP 135/79; PULSE 59; RESP 18; O2SAT 92
[2024-11-17] MEDS: LACTATED RINGERS 1000 ML 1,000 ML IV (23:13)
[2024-11-17] MEDS: ONDANSETRON 2 MG/ML inj 4 MG IVP (23:14)
[2024-11-17] MEDS: NITROGLYCERIN 0.4 MG TAB.SUBL SUBLINGUAL (23:14)
--- NOTE | 2024-11-17 23:15 | ED.CHESTPAIN ---
HPI - Chest Pain General Date Seen: 11/17/24 <Ken Bentley DO - Last Filed: 11/18/24 00:45> Chief Complaint: Chest Pain <Ken Bentley DO - Last Filed: 11/18/24 00:45> Stated Complaint: dizzy. chest pain/tighness <Ken Bentley - Last Filed: 11/18/24 00:45> Time Seen by Provider: 11/17/24 22:57 <Ken Bentley DO - Last Filed: 11/18/24 00:45> Source: patient <Ken Bentley DO - Last Filed: 11/18/24 00:45> Mode of arrival: ambulatory <Ken Bentley DO - Last Filed: 11/18/24 00:45> Limitations: no limitations <Ken Bentley - Last Filed: 11/18/24 00:45> History of Present Illness HPI narrative: Patient is an 88-year-old male presenting for dizziness and chest pain. For the dizziness as been going on for the past 3 days. He states it feels like he is on about and gets worse when he stands up. Does not notice it as much when he turns his head. Symptoms improved significantly when he lays down. States the room does not feel like it is spinning any does not feel like he is going to pass out. States he has symptoms like this before and he did physical therapy for it and in the inversion table which helped. Unsure how long ago that was. Has not noticed any weakness or numbness anywhere. Denies any vision changes or headaches. He states it has been hard for him to walk around due to the symptoms. Then today about an hour or 2 prior to arrival he suddenly notice some midsternal chest pain. The chest pain started while he was laying in bed. States the only time he remembers having chest pain was back in 2019 when he had an OR. he does not remember if this pain feels similar. Describes it as a tightness sensation in his chest. Does not radiate anywhere. No associated shortness of breath. Does have some associated nausea. No history of blood clots. Denies fevers, chills, abdominal pain, diarrhea, constipation. Does states he is having some dysuria and polyuria and feels like he is having a no other UTI. States he gets them frequently. Does believe he is emptying his bladder. <Ken Bentley DO - Last Filed: 11/18/24 00:45> Related Data Home Medications: Home Medications ?Medication ?Instructions ?Recorded ?Confirmed atorvastatin 20 mg tablet 20 mg PO DAILY 08/20/23 09/08/24 carvedilol 6.25 mg tablet 6.25 mg PO BID 08/20/23 09/08/24 clopidogrel 75 mg tablet 75 mg PO DAILY 08/20/23 09/08/24 colestipol 1 gram tablet 1 g PO DAILY 08/20/23 09/08/24 empagliflozin 25 mg tablet 25 mg PO DAILY 08/20/23 09/08/24 (Jardiance) gabapentin 300 mg capsule 300 mg PO HS 08/20/23 09/08/24 omeprazole 20 mg capsule,delayed 20 mg PO BID 08/20/23 09/08/24 release ondansetron 4 mg disintegrating 4 mg PO Q8H PRN 08/20/23 09/08/24 tablet triamterene 37.5 1 tab PO DAILY 08/20/23 09/08/24 mg-hydrochlorothiazide 25 mg tablet cholecalciferol (vitamin D3) 25 25 mcg PO DAILY 09/10/23 09/08/24 mcg (1,000 unit) capsule nitroglycerin 0.4 mg sublingual 0.4 mg sublingual Q5M PRN 09/10/23 09/08/24 tablet glipizide 10 mg tablet, extended 10 mg PO BID 09/08/24 09/08/24 release 24 hr losartan 25 mg tablet 25 mg PO DAILY 09/08/24 09/08/24 triamcinolone acetonide 0.1 % applic topical BID 09/08/24 09/08/24 topical cream Previous Rx's ?Medication ?Instructions ?Recorded acetaminophen 500 mg capsule 500 - 1,000 mg (1 - 2 x 500 mg) PO 09/12/23 Q6H PRN pain #100 caps meclizine 25 mg tablet 25 mg PO QID #20 tabs 11/18/24 <Ken Bentley, - Last Filed: 11/18/24 00:45> Allergies/Adverse Reactions: Allergies Allergy/AdvReac Type Severity Reaction Status Date / Time amlodipine Allergy Unknown edema Verified 09/08/24 10:48 chlorthalidone Allergy Unknown refractory Verified 09/08/24 10:48 hypokalemia lisinopril Allergy Unknown Cough Verified 09/08/24 10:48 monosodium glutamate Allergy Unknown stomach Verified 09/08/24 10:48 distress <Ken Bentley DO - Last Filed: 11/18/24 00:45> Review of Systems Status of ROS Reports: 10 or more systems reviewed and unremarkable except as noted in History and below <Ken Bentley DO - Last Filed: 11/18/24 00:45> [facility] Medical History: Medical History PVC (premature ventricular contraction) ?I49.3 - Ventricular premature depolarization (ICD-10) PUD (peptic ulcer disease) ?K27.9 - Peptic ulcer, site unspecified, unspecified as acute or chronic, without hemorrhage or perforation (ICD-10) Prostate cancer ?C61 - Malignant neoplasm of prostate (ICD-10) 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) Viral upper respiratory tract infection ?J06.9 - Acute upper respiratory infection, unspecified (ICD-10) Stress ?F43.9 - Reaction to severe stress, unspecified (ICD-10) Positive D-dimer ?R79.89 - Other specified abnormal findings of blood chemistry (ICD-10) Gastritis ?K29.70 - Gastritis, unspecified, without bleeding (ICD-10) Diarrhea ?R19.7 - Diarrhea, unspecified (ICD-10) Closed head injury ?S09.90XA - Unspecified injury of head, initial encounter (ICD-10) Cholangitis ?K83.09 - Other cholangitis (ICD-10) Chest pain (07/30/12) ?R07.9 - Chest pain, unspecified (ICD-10) Atypical chest pain ?R07.89 - Other chest pain (ICD-10) Diabetes ?E11.9 - Type 2 diabetes mellitus without complications (ICD-10) Heart attack (2018) ?I21.9 - Acute myocardial infarction, unspecified (ICD-10) Hypertension ?I10 - Essential (primary) hypertension (ICD-10) <Ken Bentley DO - Last Filed: 11/18/24 00:45> Surgical History: Surgical History 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) ?Z96.642 - Presence of left artificial hip joint (ICD-10) History of tonsillectomy and adenoidectomy ?Z90.89 - Acquired absence of other organs (ICD-10) S/P TURP ?Z90.79 - Acquired absence of other genital organ(s) (ICD-10) S/P ERCP ?Z98.890 - Other specified postprocedural states (ICD-10) History of cholecystectomy (2018) ?Z90.49 - Acquired absence of other specified parts of digestive tract (ICD-10) H/O arthroscopy of right knee (01/17/08) ?Z98.890 - Other specified postprocedural states (ICD-10) History of phacoemulsification of cataract of left eye with intraocular lens implantation ?Z98.42 - Cataract extraction status, left eye (ICD-10) ?Z96.1 - Presence of intraocular lens (ICD-10) History of phacoemulsification of cataract of right eye with intraocular lens implantation ?Z98.41 - Cataract extraction status, right eye (ICD-10) ?Z96.1 - Presence of intraocular lens (ICD-10) History of YAG laser capsulotomy of lens of right eye ?Z98.41 - Cataract extraction status, right eye (ICD-10) <Ken Bentley DO - Last Filed: 11/18/24 00:45> Family History: Family History Father Stroke High blood pressure Mother High blood pressure CHF (congestive heart failure) Grandmother Colon cancer Son DVT (deep venous thrombosis) <Ken Bentley DO - Last Filed: 11/18/24 00:45> Social History: Social History Narrative: He lives with his in [facility]. He can live on 1 level in his home. Remote history of smoking having quit about 50 years ago with a 15 pack-year history. He does not drink alcohol. Code status is DNR. Son Jerson is healthcare power of trade mark attorney and present with him in the hospital today Smoking Status: Former smoker What tobacco products do you use: cigarettes Smoking quit date/years: >15 years ago Do you use any of these nicotine containing products: None Second hand tobacco smoke exposure: No How often do you have a drink containing alcohol: never AUDIT-C Alcohol total score: 0 Non-prescribed substance use: denies use service: No <Ken Bentley DO - Last Filed: 11/18/24 00:45> Exam Narrative Exam Narrative: Const: Well-nourished, Well-developed, in mild distress Eyes: PERRL, no conjunctival injection, and symmetrical lids HENT: Atraumatic external nose and ears. Moist mucous membranes. Neck: Symmetric, trachea midline, No thyromegaly. CVS: RRR, No murmurs or gallops. Peripheral pulses 2+ and equal in all extremities RESP: Unlabored respiratory effort. Clear to auscultation bilaterally. GI: Nontender/Nondistended, No rebound or guarding. MSK:Extremities w/o deformity, Normal Active ROM Skin: Warm, Dry. No rashes or lesions. Neuro: Normal Muscle tone, No focal neurological deficits. Psych: Awake, Alert, & Oriented x3. Appropriate mood and affect. <Ken Bentley DO - Last Filed: 11/18/24 00:45> Const Vital Signs, click to edit/add: Vital Signs - 24 hr 11/17/24 22:55 11/17/24 23:06 11/17/24 23:32 Temperature 98.0 F Pulse Rate 59 L 58 L Pulse Rate [Right Pulse Oximeter] 60 Pulse Rate [orthostatic lying] Pulse Rate [orthostatic sitting] Pulse Rate [orthostatic standing] Respiratory Rate 18 18 20 Blood Pressure 135/79 126/72 Blood Pressure [Right Upper Arm] 149/81 H Blood Pressure [orthostatic lying] Blood Pressure [orthostatic sitting] Blood Pressure [orthostatic standing] Pulse Oximetry 95 92 91 Oxygen Delivery Method Room Air 11/17/24 23:39 11/17/24 23:41 11/18/24 00:02 Temperature Pulse Rate 62 56 L Pulse Rate [Right Pulse Oximeter] Pulse Rate [orthostatic lying] 58 L Pulse Rate [orthostatic sitting] 64 Pulse Rate [orthostatic standing] 66 Respiratory Rate 18 18 Blood Pressure 107/71 130/74 Blood Pressure [Right Upper Arm] Blood Pressure [orthostatic lying] 120/64 Blood Pressure [orthostatic sitting] 107/71 Blood Pressure [orthostatic standing] 98/60 Pulse Oximetry 99 92 Oxygen Delivery Method 11/18/24 01:02 Temperature Pulse Rate 60 Pulse Rate [Right Pulse Oximeter] Pulse Rate [orthostatic lying] Pulse Rate [orthostatic sitting] Pulse Rate [orthostatic standing] Respiratory Rate 18 Blood Pressure 140/72 H Blood Pressure [Right Upper Arm] Blood Pressure [orthostatic lying] Blood Pressure [orthostatic sitting] Blood Pressure [orthostatic standing] Pulse Oximetry 91 Oxygen Delivery Method <Ken Bentley, DO - Last Filed: 11/18/24 00:45> Vital Signs - 24 hr 11/17/24 22:55 11/17/24 23:06 11/17/24 23:32 Temperature 98.0 F Pulse Rate 59 L 58 L Pulse Rate [Right Pulse Oximeter] 60 Pulse Rate [orthostatic lying] Pulse Rate [orthostatic sitting] Pulse Rate [orthostatic standing] Respiratory Rate 18 18 20 Blood Pressure 135/79 126/72 Blood Pressure [Right Upper Arm] 149/81 H Blood Pressure [orthostatic lying] Blood Pressure [orthostatic sitting] Blood Pressure [orthostatic standing] Pulse Oximetry 95 92 91 Oxygen Delivery Method Room Air 11/17/24 23:39 11/17/24 23:41 11/18/24 00:02 Temperature Pulse Rate 62 56 L Pulse Rate [Right Pulse Oximeter] Pulse Rate [orthostatic lying] 58 L Pulse Rate [orthostatic sitting] 64 Pulse Rate [orthostatic standing] 66 Respiratory Rate 18 18 Blood Pressure 107/71 130/74 Blood Pressure [Right Upper Arm] Blood Pressure [orthostatic lying] 120/64 Blood Pressure [orthostatic sitting] 107/71 Blood Pressure [orthostatic standing] 98/60 Pulse Oximetry 99 92 Oxygen Delivery Method 11/18/24 01:02 Temperature Pulse Rate 60 Pulse Rate [Right Pulse Oximeter] Pulse Rate [orthostatic lying] Pulse Rate [orthostatic sitting] Pulse Rate [orthostatic standing] Respiratory Rate 18 Blood Pressure 140/72 H Blood Pressure [Right Upper Arm] Blood Pressure [orthostatic lying] Blood Pressure [orthostatic sitting] Blood Pressure [orthostatic standing] Pulse Oximetry 91 Oxygen Delivery Method <Adriel Chaudhary MD - Last Filed: 11/18/24 01:33> Course Course ED Course: 1:16 a.m. repeat troponin 0.01 patient is stable for discharge. <Adriel Chaudhary MD - Last Filed: 11/18/24 01:33> Vital Signs Vital signs: Initial Vital Signs Temperature 98.0 F 11/17/24 22:55 Temperature Source Temporal Artery Scan 11/17/24 22:55 Pulse Rate 60 11/17/24 22:55 Pulse Rhythm Regular 11/17/24 22:55 Pulse Strength 3+ Normal 11/17/24 22:55 Respiratory Rate 18 11/17/24 22:55 Blood Pressure 149/81 H 11/17/24 22:55 Blood Pressure Mean 103 11/17/24 22:55 Blood Pressure Position Sitting 11/17/24 22:55 Pulse Oximetry 95 11/17/24 22:55 Oxygen Delivery Method Room Air 11/17/24 22:55 Vital Signs Temperature 98.0 F 11/17/24 22:55 Pulse Rate 60 11/17/24 22:55 Respiratory Rate 18 11/17/24 22:55 Blood Pressure 149/81 H 11/17/24 22:55 Pulse Oximetry 95 11/17/24 22:55 Oxygen Delivery Method Room Air 11/17/24 22:55 Temperature 98.0 F 11/17/24 22:55 Pulse Rate 60 11/18/24 01:02 Respiratory Rate 18 11/18/24 01:02 Blood Pressure 140/72 H 11/18/24 01:02 Pulse Oximetry 91 11/18/24 01:02 Oxygen Delivery Method Room Air 11/17/24 22:55 <Ken Bentley DO - Last Filed: 11/18/24 00:45> Initial Vital Signs Temperature 98.0 F 11/17/24 22:55 Temperature Source Temporal Artery Scan 11/17/24 22:55 Pulse Rate 60 11/17/24 22:55 Pulse Rhythm Regular 11/17/24 22:55 Pulse Strength 3+ Normal 11/17/24 22:55 Respiratory Rate 18 11/17/24 22:55 Blood Pressure 149/81 H 11/17/24 22:55 Blood Pressure Mean 103 11/17/24 22:55 Blood Pressure Position Sitting 11/17/24 22:55 Pulse Oximetry 95 11/17/24 22:55 Oxygen Delivery Method Room Air 11/17/24 22:55 Vital Signs Temperature 98.0 F 11/17/24 22:55 Pulse Rate 60 11/17/24 22:55 Respiratory Rate 18 11/17/24 22:55 Blood Pressure 149/81 H 11/17/24 22:55 Pulse Oximetry 95 11/17/24 22:55 Oxygen Delivery Method Room Air 11/17/24 22:55 Temperature 98.0 F 11/17/24 22:55 Pulse Rate 60 11/18/24 01:02 Respiratory Rate 18 11/18/24 01:02 Blood Pressure 140/72 H 11/18/24 01:02 Pulse Oximetry 91 11/18/24 01:02 Oxygen Delivery Method Room Air 11/17/24 22:55 <Adriel Chaudhary MD - Last Filed: 11/18/24 01:33> Medications Administered Medications: Discontinued Medications Generic Name Dose Route Start Last Admin Trade Name Mich PRN Reason Stop Dose Admin Aspirin 324 mg 11/17/24 23:05 11/17/24 23:22 Aspirin 81 Mg Tab.Chew PO 11/17/24 23:06 Not Given ONCE ONE Lactated Ringer's 1,000 mls @ 1,000 mls/hr 11/17/24 23:05 11/18/24 00:58 Lactated Ringers 1000 Ml IV 11/18/24 00:04 Infused .Q1H ONE Infusion Meclizine HCl 25 mg 11/17/24 23:44 11/17/24 23:47 Meclizine Hcl 25 Mg Tablet PO 11/17/24 23:45 25 mg ONCE ONE Administration Nitroglycerin 0.4 mg 11/17/24 23:05 11/17/24 23:14 Nitroglycerin 0.4 Mg Tab.Subl SUBLINGUAL 11/17/24 23:06 0.4 mg ONCE ONE Administration Ondansetron HCl 4 mg 11/17/24 23:05 11/17/24 23:14 Ondansetron 2 Mg/Ml Inj IVP 11/17/24 23:06 4 mg ONCE ONE Administration <Ken Bentley DO - Last Filed: 11/18/24 00:45> Discontinued Medications Generic Name Dose Route Start Last Admin Trade Name Mich PRN Reason Stop Dose Admin Aspirin 324 mg 11/17/24 23:05 11/17/24 23:22 Aspirin 81 Mg Tab.Chew PO 11/17/24 23:06 Not Given ONCE ONE Lactated Ringer's 1,000 mls @ 1,000 mls/hr 11/17/24 23:05 11/18/24 00:58 Lactated Ringers 1000 Ml IV 11/18/24 00:04 Infused .Q1H ONE Infusion Meclizine HCl 25 mg 11/17/24 23:44 11/17/24 23:47 Meclizine Hcl 25 Mg Tablet PO 11/17/24 23:45 25 mg ONCE ONE Administration Nitroglycerin 0.4 mg 11/17/24 23:05 11/17/24 23:14 Nitroglycerin 0.4 Mg Tab.Subl SUBLINGUAL 11/17/24 23:06 0.4 mg ONCE ONE Administration Ondansetron HCl 4 mg 11/17/24 23:05 11/17/24 23:14 Ondansetron 2 Mg/Ml Inj IVP 11/17/24 23:06 4 mg ONCE ONE Administration <Adriel Chaudhary MD - Last Filed: 11/18/24 01:33> MDM - Chest Pain MDM Narrative Medical decision making narrative: Patient is an 88-year-old male presenting for multiple complaints. His main complaint is the chest pain. The differential diagnosis of chest pain is broad and includes common etiologies such as musculoskeletal strain, GERD, pneumonia, etc. More serious etiologies considered include PE, coronary artery disease, pneumothorax, aortic dissection, aortic aneurysm. He is already taking Plavix so will hold on aspirin unless there is a sign he is having another OR. Will try nitro to see if it helps with his symptoms. Will do a D-dimer to check for signs of PE. He otherwise appears stable and our dissection and aortic aneurysm seem unlikely. With symptoms being worse when he stands up the could be some orthostatic hypotension related to its will check orthostatic vital signs and give him some fluids. Chest x-ray ordered to look for signs of pneumonia or pneumothorax. Will also order viral swabs, BMP, magnesium, EKG, troponin, BNP. He is complaining about signs of a urinary tract infection so urinalysis will be ordered. He is also complaining about dizziness. The way he describes it is as if he is on a boat. Symptoms have been going on for multiple days. Do not believe emergent imaging is necessary as he has had the symptoms before and based on his description the treatment sounds like it was BPPV. Symptoms are better when he lays down. Will try some meclizine. The fluids given may also help with his symptoms. Lab work returned showing no acute concerning abnormalities. EKG reviewed myself shows no concerning findings. No signs of UTI. Initial troponin within normal limits. Orthostatic vital signs showing blood pressure that dropped diastolically by 22 points. He continues to have the lightheadedness feeling when he stands up. Fluids were not finished yet and he just received the nitro about 15 minutes earlier. He did not receive the meclizine yet either. States nitro did not help with his chest pain at all. After the fluids and meclizine or and he is stating he feels better. Still has some dizziness but is able walk around better. Will repeat troponin. Expected disposition is home with meclizine and close follow-up with his primary care provider. States he sees his vice president of customer service every year and last saw him 6 months ago. He Will try and get another follow-up. <Ken Bentley DO - Last Filed: 11/18/24 00:45> Lab Data Labs: Lab Results 11/17/24 11/17/24 11/17/24 Range/Units 23:00 23:05 23:08 WBC 7.72 (4.50-11.00) K/uL RBC 5.78 (4.30-5.90) m/uL Hgb 17.4 (13.5-17.5) gm/dL Hct 52.6 (37.0-53.0) % MCV 91 (80-100) fL MCH 30 (26-34) pg MCHC 33 (32-36) gm/dL RDW Coeff of Fitz 12.9 (11.5-15.5) % Plt Count 247 (140-440) K/uL Neut % (Auto) 59.3 (42.0-72.0) % Lymph % (Auto) 26.3 (20-44) % Hancock % (Auto) 12.4 H (0.0-11.0) % Eos % (Auto) 1.3 (0.0-7.0) % Baso % (Auto) 0.4 (0.0-3.0) % Neut # (Auto) 4.58 (1.7-7.0) K/uL Lymph # (Auto) 2.03 (0.90-2.90) K/uL Hancock # (Auto) 1.00 H (0.00-0.90) K/UL Eos # (Auto) 0.10 (0.00-0.50) K/uL Baso # (Auto) 0.03 (0.00-0.30) K/uL Abs Immat Gran (auto) 0.02 (0.00-0.30) K/uL Imm/Tot Granulo (auto) 0.3 % D-Dimer Quant (PE/DVT) 0.19 (0.00-0.50) ug/ml Sodium 135 (135-149) mmol/L Potassium 3.8 (3.6-5.1) mmol/L Chloride 98 (96-114) mmol/L Carbon Dioxide 28 (20-32) mmol/L Anion Gap 9 (7-15) mEq/L BUN 27 (7-30) mg/dL Creatinine 1.4 (0.5-1.5) mg/dL Estimated Creat Clear 42.01 Estimated GFR 49 ml/min Glucose 157 H (60-115) mg/dL Calcium 9.5 (8.4-10.6) mg/dL Magnesium 2.1 (1.5-2.6) mg/dL NT-Pro-B Natriuret Pep 122 (See Note) pg/mL Urine Color Yellow (Yellow) Urine Appearance Clear (Clear) Urine pH 6.5 (5.0-8.5) Ur Specific Harrah 1.015 (1.000-1.030) Urine Protein Trace A (Negative) Urine Glucose (UA) 3+ A (Negative) Urine Ketones 1+ A (Negative) Urine Blood Trace-intact A (Negative) Urine Nitrite Negative (Negative) Urine Bilirubin Negative (Negative) Urine Urobilinogen 1.0 (0.2-1.0) Ur Leukocyte Esterase Negative (Negative) Urine RBC 0-2 (0-2) Urine WBC 0-2 (0-5) Ur Squamous Epith Cells Few (None-Few) Urine Bacteria Few A (None) SARS-CoV-2 (PCR) Negative SARS-CoV-2 (Negative) Influenza Type A (PCR) Negative PCR FLU A (Negative) Influenza Type B (PCR) Negative PCR FLU B (Negative) RSV (PCR) Negative PCR RSV (Negative) POC Troponin I 0.02 (0.01-0.04) ng/ml 11/18/24 Range/Units 01:00 WBC (4.50-11.00) K/uL RBC (4.30-5.90) m/uL Hgb (13.5-17.5) gm/dL Hct (37.0-53.0) % MCV (80-100) fL MCH (26-34) pg MCHC (32-36) gm/dL RDW Coeff of Fitz (11.5-15.5) % Plt Count (140-440) K/uL Neut % (Auto) (42.0-72.0) % Lymph % (Auto) (20-44) % Hancock % (Auto) (0.0-11.0) % Eos % (Auto) (0.0-7.0) % Baso % (Auto) (0.0-3.0) % Neut # (Auto) (1.7-7.0) K/uL Lymph # (Auto) (0.90-2.90) K/uL Hancock # (Auto) (0.00-0.90) K/UL Eos # (Auto) (0.00-0.50) K/uL Baso # (Auto) (0.00-0.30) K/uL Abs Immat Gran (auto) (0.00-0.30) K/uL Imm/Tot Granulo (auto) % D-Dimer Quant (PE/DVT) (0.00-0.50) ug/ml Sodium (135-149) mmol/L Potassium (3.6-5.1) mmol/L Chloride (96-114) mmol/L Carbon Dioxide (20-32) mmol/L Anion Gap (7-15) mEq/L BUN (7-30) mg/dL Creatinine (0.5-1.5) mg/dL Estimated Creat Clear Estimated GFR ml/min Glucose (60-115) mg/dL Calcium (8.4-10.6) mg/dL Magnesium (1.5-2.6) mg/dL NT-Pro-B Natriuret Pep (See Note) pg/mL Urine Color (Yellow) Urine Appearance (Clear) Urine pH (5.0-8.5) Ur Specific Harrah (1.000-1.030) Urine Protein (Negative) Urine Glucose (UA) (Negative) Urine Ketones (Negative) Urine Blood (Negative) Urine Nitrite (Negative) Urine Bilirubin (Negative) Urine Urobilinogen (0.2-1.0) Ur Leukocyte Esterase (Negative) Urine RBC (0-2) Urine WBC (0-5) Ur Squamous Epith Cells (None-Few) Urine Bacteria (None) SARS-CoV-2 (PCR) (Negative) Influenza Type A (PCR) (Negative) Influenza Type B (PCR) (Negative) RSV (PCR) (Negative) POC Troponin I 0.01 (0.01-0.04) ng/ml <Ken Bentley, DO - Last Filed: 11/18/24 00:45> Lab Results 11/17/24 11/17/24 11/17/24 Range/Units 23:00 23:05 23:08 WBC 7.72 (4.50-11.00) K/uL RBC 5.78 (4.30-5.90) m/uL Hgb 17.4 (13.5-17.5) gm/dL Hct 52.6 (37.0-53.0) % MCV 91 (80-100) fL MCH 30 (26-34) pg MCHC 33 (32-36) gm/dL RDW Coeff of Fitz 12.9 (11.5-15.5) % Plt Count 247 (140-440) K/uL Neut % (Auto) 59.3 (42.0-72.0) % Lymph % (Auto) 26.3 (20-44) % Hancock % (Auto) 12.4 H (0.0-11.0) % Eos % (Auto) 1.3 (0.0-7.0) % Baso % (Auto) 0.4 (0.0-3.0) % Neut # (Auto) 4.58 (1.7-7.0) K/uL Lymph # (Auto) 2.03 (0.90-2.90) K/uL Hancock # (Auto) 1.00 H (0.00-0.90) K/UL Eos # (Auto) 0.10 (0.00-0.50) K/uL Baso # (Auto) 0.03 (0.00-0.30) K/uL Abs Immat Gran (auto) 0.02 (0.00-0.30) K/uL Imm/Tot Granulo (auto) 0.3 % D-Dimer Quant (PE/DVT) 0.19 (0.00-0.50) ug/ml Sodium 135 (135-149) mmol/L Potassium 3.8 (3.6-5.1) mmol/L Chloride 98 (96-114) mmol/L Carbon Dioxide 28 (20-32) mmol/L Anion Gap 9 (7-15) mEq/L BUN 27 (7-30) mg/dL Creatinine 1.4 (0.5-1.5) mg/dL Estimated Creat Clear 42.01 Estimated GFR 49 ml/min Glucose 157 H (60-115) mg/dL Calcium 9.5 (8.4-10.6) mg/dL Magnesium 2.1 (1.5-2.6) mg/dL NT-Pro-B Natriuret Pep 122 (See Note) pg/mL Urine Color Yellow (Yellow) Urine Appearance Clear (Clear) Urine pH 6.5 (5.0-8.5) Ur Specific Harrah 1.015 (1.000-1.030) Urine Protein Trace A (Negative) Urine Glucose (UA) 3+ A (Negative) Urine Ketones 1+ A (Negative) Urine Blood Trace-intact A (Negative) Urine Nitrite Negative (Negative) Urine Bilirubin Negative (Negative) Urine Urobilinogen 1.0 (0.2-1.0) Ur Leukocyte Esterase Negative (Negative) Urine RBC 0-2 (0-2) Urine WBC 0-2 (0-5) Ur Squamous Epith Cells Few (None-Few) Urine Bacteria Few A (None) SARS-CoV-2 (PCR) Negative SARS-CoV-2 (Negative) Influenza Type A (PCR) Negative PCR FLU A (Negative) Influenza Type B (PCR) Negative PCR FLU B (Negative) RSV (PCR) Negative PCR RSV (Negative) POC Troponin I 0.02 (0.01-0.04) ng/ml 11/18/24 Range/Units 01:00 WBC (4.50-11.00) K/uL RBC (4.30-5.90) m/uL Hgb (13.5-17.5) gm/dL Hct (37.0-53.0) % MCV (80-100) fL MCH (26-34) pg MCHC (32-36) gm/dL RDW Coeff of Fitz (11.5-15.5) % Plt Count (140-440) K/uL Neut % (Auto) (42.0-72.0) % Lymph % (Auto) (20-44) % Hancock % (Auto) (0.0-11.0) % Eos % (Auto) (0.0-7.0) % Baso % (Auto) (0.0-3.0) % Neut # (Auto) (1.7-7.0) K/uL Lymph # (Auto) (0.90-2.90) K/uL Hancock # (Auto) (0.00-0.90) K/UL Eos # (Auto) (0.00-0.50) K/uL Baso # (Auto) (0.00-0.30) K/uL Abs Immat Gran (auto) (0.00-0.30) K/uL Imm/Tot Granulo (auto) % D-Dimer Quant (PE/DVT) (0.00-0.50) ug/ml Sodium (135-149) mmol/L Potassium (3.6-5.1) mmol/L Chloride (96-114) mmol/L Carbon Dioxide (20-32) mmol/L Anion Gap (7-15) mEq/L BUN (7-30) mg/dL Creatinine (0.5-1.5) mg/dL Estimated Creat Clear Estimated GFR ml/min Glucose (60-115) mg/dL Calcium (8.4-10.6) mg/dL Magnesium (1.5-2.6) mg/dL NT-Pro-B Natriuret Pep (See Note) pg/mL Urine Color (Yellow) Urine Appearance (Clear) Urine pH (5.0-8.5) Ur Specific [place] (1.000-1.030) Urine Protein (Negative) Urine Glucose (UA) (Negative) Urine Ketones (Negative) Urine Blood (Negative) Urine Nitrite (Negative) Urine Bilirubin (Negative) Urine Urobilinogen (0.2-1.0) Ur Leukocyte Esterase (Negative) Urine RBC (0-2) Urine WBC (0-5) Ur Squamous Epith Cells (None-Few) Urine Bacteria (None) SARS-CoV-2 (PCR) (Negative) Influenza Type A (PCR) (Negative) Influenza Type B (PCR) (Negative) RSV (PCR) (Negative) POC Troponin I 0.01 (0.01-0.04) ng/ml <Adriel Chaudhary MD - Last Filed: 11/18/24 01:33> Imaging Data Chest x-ray: Attestation: I have reviewed the pertinent imaging results. <Ken Bentley DO - Last Filed: 11/18/24 00:45> Radiologist's impression: No acute cardiopulmonary process. Dictated by Axel Dan MD @ 11/17/2024 11:50:53 PM <Ken Bentley DO - Last Filed: 11/18/24 00:45> ECG Data Attestation: I personally reviewed and interpreted this ECG as follows: <Ken Bentley DO - Last Filed: 11/18/24 00:45> Prior ECG tracings: not available for review <Ken Bentley DO - Last Filed: 11/18/24 00:45> Interpretation: Normal sinus rhythm with a rate of 60 beats per minute, first-degree AV block, left axis deviation, normal QRS and QT intervals, no ST or T-wave abnormalities. <Ken Bentley DO - Last Filed: 11/18/24 00:45> Discharge Plan Discharge Clinical Impression: Atypical chest pain, Dizziness <Ken Bentley DO - Last Filed: 11/18/24 00:45> Patient Disposition: Home, Self-Care <Ken Bentley DO - Last Filed: 11/18/24 00:45> Condition: Improved <Ken Bentley DO Last Filed: 11/18/24 00:45> Instructions: Dizziness (ED), Noncardiac Chest Pain (ED) <Ken Bentley DO - Last Filed: 11/18/24 00:45> Additional Instructions: With your history I do recommend close follow-up with Cardiology. Also recommend following up with the primary care provider as soon as you can about the dizziness. They may recommend physical therapy again to help with that. In the meantime use the meclizine as needed for your dizziness. Make sure to stay well hydrated. Return to emergency department for new or worsening symptoms. <Ken Bentley DO - Last Filed: 11/18/24 00:45> Prescriptions: New meclizine 25 mg tablet 25 mg PO QID Qty: 20 0RF No Action triamterene-hydrochlorothiazid 37.5-25 mg tablet 1 tab PO DAILY gabapentin 300 mg capsule 300 mg PO HS colestipol 1 gram tablet 1 g PO DAILY omeprazole 20 mg capsule,delayed release(DR/EC) 20 mg PO BID clopidogrel 75 mg tablet 75 mg PO DAILY atorvastatin 20 mg tablet 20 mg PO DAILY carvedilol 6.25 mg tablet 6.25 mg PO BID Jardiance 25 mg tablet 25 mg PO DAILY ondansetron 4 mg tablet,disintegrating 4 mg PO Q8H PRN glipizide 10 mg tablet extended release 24hr 10 mg PO BID losartan 25 mg tablet 25 mg PO DAILY triamcinolone acetonide 0.1 % cream topical BID cholecalciferol (vitamin D3) 25 mcg (1,000 unit) capsule 25 mcg PO DAILY nitroglycerin 0.4 mg tablet, sublingual 0.4 mg sublingual Q5M PRN acetaminophen 500 mg capsule 500 - 1,000 mg PO Q6H MDD 3000mg per day PRN (Reason: pain) Qty: 100 0RF <Ken Bentley DO - Last Filed: 11/18/24 00:45> Follow Up/Referrals: Gerald Ng MD [Primary Care Provider, Family Practice] <Ken Bentley DO - Last Filed: 11/18/24 00:45> Stand Alone Forms: MyHealth Info Instructions <Ken Bentley, DO - Last Filed: 11/18/24 00:45>
[2024-11-17 23:18] LABS: Hematocrit 52.6 % (37.0-53.0); Hemoglobin* 17.4 gm/dL (13.5-17.5); Immature Granulocytes Abs Auto 0.02 K/uL (0.00-0.30); Immature Granulocytes Pct Auto 0.3 %; Lymphocytes Absolute Auto 2.03 K/uL (0.90-2.90); Mean Corpuscular HGB Conc 33 gm/dL (32-36); Mean Corpuscular Hemoglobin 30 pg (26-34); Mean Corpuscular Volume 91 fL (80-100); RDW Coefficient of Variation % 12.9 % (11.5-15.5); Red Blood Count 5.78 m/uL (4.30-5.90); White Blood Count* 7.72 K/uL (4.50-11.00)
[2024-11-17 23:22] LABS: Troponin, Point-of-Care* 0.02 ng/ml (0.01-0.04)
[2024-11-17 23:22] LABS: Slide Review Reflex No
[2024-11-17 23:24] LABS: Chloride* 98 mmol/L (96-114); Potassium* 3.8 mmol/L (3.6-5.1); Sodium* 135 mmol/L (135-149)
[2024-11-17 23:27] LABS: Anion Gap 9 mEq/L (7-15); Blood Urea Nitrogen* 27 mg/dL (7-30); Calcium* 9.5 mg/dL (8.4-10.6); Carbon Dioxide* 28 mmol/L (20-32); Creatinine* 1.4 mg/dL (0.5-1.5); Est. Creatinine Clearance* 42.01; Estimated Glomerular Filt Rate 49 ml/min; Glucose* 157 mg/dL (60-115)
[2024-11-17 23:27] LABS: Appearance Urine Clear (Clear)
[2024-11-17 23:32] VITALS: BP 126/72; PULSE 58; RESP 20; O2SAT 91
[2024-11-17 23:37] LABS: D Dimer Quantitative* 0.19 ug/ml (0.00-0.50)
[2024-11-17 23:38] LABS: NT Pro B Type NatriureticPept* 122 pg/mL (See Note)
[2024-11-17 23:39] VITALS: BP 107/71; PULSE 62; RESP 18; O2SAT 99
[2024-11-17 23:41] VITALS: BP 107/71; BP 120/64; BP 98/60; PULSE 58; PULSE 64; PULSE 66
[2024-11-17] MEDS: MECLIZINE HCL 25 MG TABLET PO (23:47)
[2024-11-18] LABS: PCR FLU A Negative PCR FLU A (Negative); PCR FLU B Negative PCR FLU B (Negative); PCR RSV Negative PCR RSV (Negative); SARS PCR* Negative SARS-CoV-2 (Negative)
[2024-11-18 00:02] VITALS: BP 130/74; PULSE 56; RESP 18; O2SAT 92
[2024-11-18 01:02] VITALS: BP 140/72; PULSE 60; RESP 18; O2SAT 91
[2024-11-18 01:10] LABS: Troponin, Point-of-Care* 0.01 ng/ml (0.01-0.04)
[2024-11-18 01:15] VITALS: PULSE 56; O2SAT 94
[2024-11-18 02:05] VITALS: RESP 16
== END 2024-11-18 02:06 | disposition home or self-care (01) ==
PROVIDERS: Family Medicine; Emergency Provider Student in an Organized Health Care Education/Training Program; PCP Family Medicine
DX: R07.9 Chest pain, unspecified (principal); R42 Dizziness and giddiness
CPT/HCPCS: 36415; 71045; 80048; 81001; 83735; 83880; 84484; 85025; 85379; 87086; 87631; 93005; 96374; 99284; A9270; J2405; J7120